=== PATIENT | female | born 1935 | race Caucasian/White ===

== ENCOUNTER 2019-10-03 06:00 | Outpatient (CLI) | payer MEDICARE, OTHER, SELFPAY ==
--- NOTE | 2019-10-06 06:42 | ONC FU_ITS ---
Dr. Armendariz Patient Follow-Up Note Patient: Juana January Unit #: [id number]: 1935 Dicatated By: Angel Armendariz M.D.Date of Visit:Oct 03, 2019 Onc Med Follow-up/Prog Note Chief Complaint: Breast cancer. 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 She had presented in August 2012 with an abnormal screening mammogram which showed a 6 mm spiculated density in the 4 o'clock position of the left breast. Needle core biopsy in October 2012 showed grade 1 invasive ductal carcinoma associated with intermediate and high grade ductal carcinoma in situ. The size of the invasive component was estimated at 4 mm. The tumor was ER positive at 100% and CO positive at 10%. It was negative for overexpression of HER-2/kimberly (1+ by IHC). She underwent left mastectomy with sentinel axillary lymph node biopsy on 11/15/2012. Pathology showed focal residual hg grade ductal carcinoma in situ at the previous biopsy site. There was no residual invasive cancer, and there was no involvement in 6 lymph nodes. She has been taking adjuvant hormonal therapy with anastrozole. I had seen her initially on . Her main complaint at that time was that she had developed a muscle spasm in her back on the preceding 16 of February, and it had continued to bother her intermittently ever since then. The area of involvement was in the left upper back. She had no associated neurologic symptoms. She had undergone physical therapy and she also had seen a chiropractor. Clinically it appeared unlikely that the pain was related to metastatic disease. Initially I had just recommended additional evaluation and treatment by physical therapy, and I did have her continue the anastrozole. She has additional history of osteoporosis with a bone density study in February 2014 showing a T score of -2.8 in the lumbar spine. She had previously been on treatment with Boniva monthly along with a calcium/vitamin D supplement. Her treatment subsequently was transitioned to Prolia. Her other medical illnesses have been limited to hypertension and hypothyroidism. She had a previous right total knee arthroplasty, but that was related to an injury/fracture. She is a nonsmoker. She does have a significant family history of breast cancer including her mother and a maternal aunt. INTERIM HISTORY: As of her follow-up visit in March 2018 she had completed 5 years of adjuvant hormonal therapy. At that point I reviewed options for further management, and she opted to stop treatment. Her repeat bone density study on 09/28/2018 showed T score -1.9 in the lumbar spine, -2.0 and the left femoral neck, and -1.5 been the left total hip. She is seen for a scheduled visit. She has been feeling good generally. Her main complaint is that recently her blood pressure has been running high when she checks it late in the afternoon. She also complains that the right side of her face gets flushed. Her energy generally is good, and she has normal activity. ECOG score is 0. Her appetite is good and her weight is stable. She has no fever, night sweats, or hot flashes. She has no shortness of breath, cough, or chest pain. She has no GI or complaints. She has only a little soreness in her back when she overdoes it. She has no other joint or bone pain. She has neuropathy symptoms in her right foot, but those are managed adequately with gabapentin. Medications: Ambien 1 (5 mg) Tablet Oral at bedtime PRN, Arthritis Pain Relief 1 (650 mg) Tablet, controlled release Oral b.i.d., Atenolol 1 (50 mg) Tablet Oral b.i.d., Cholecalciferol 1 Tablet (of 1000 Units) Oral daily, Flonase 1 (50 mcg/act) Suspension Nasal PRN, Gabapentin 1 Tablet Oral t.i.d., Hydrocodone-Acetaminophen 1 (7.5-325 mg) Tablet Oral PRN, Levothyroxine Sodium 1 (50 mcg) Tablet Oral daily, Lisinopril 1 (40 mg) Tablet Oral daily, Multivitamins 1 Capsule Oral daily, Norvasc 1 (5 mg) Tablet Oral daily Allergies: Cipro Review of Systems: Constitutional - She has good energy. She has normal activity. Appetite is good and weight is stable. She has not had fever, hot flashes, or night sweats. Recently she has been having episodes of high blood pressure and flushing on the right side of her face in the late afternoons. ECOG score is 0, ENMT - She has occasional sinus drainage. No mouth sores. No sore throat or difficulty swallowing, Hematologic/Lymphatic - No abnormal bruising or bleeding, Respiratory - No shortness of breath. No cough. No pleuritic pain or hemoptysis, Cardiovascular - No angina pain. No palpitations, Gastrointestinal - No nausea or vomiting. No heartburn or acid reflux. No diarrhea or constipation. No blood in the stool or black stools, Genitourinary (F) - No dysuria or hematuria. No urinary frequency. No urgency or incontinence, Musculoskeletal - She has a little soreness in her back if she overdoes it. She otherwise is not having any joint or bone pain, Integumentary - No skin complications, Neurologic - No headache. She occasionally has lightheadedness when she first gets up in the morning. She has neuropathy symptoms in the right foot, but it is adequately managed with gabapentin, Psychiatric - No anxiety or depression. No insomnia. Vital Signs: Performed on Oct 03, 2019 14:18 Height - 64.50 in Weight - 127 lbs (HIGH) BSA - 1.62 sq.m BMI - 21.46 Temperature - 97.3 F (LOW) Pulse - 56 /min (LOW) Respiration - 17 /min BP - 118/82 mm(hg) O2 Sat - 94 % (LOW) Pain - 0 Physical Examination: Constitutional - She looks good generally, Eyes - Sclerae nonicteric. Conjunctivae clear, ENMT - No lesions noted in the oral cavity, Hematologic/Lymphatic - No cervical or clavicular adenopathy, Respiratory - Lungs are clear with good air movement bilaterally, Cardiovascular - Heart is regular with no murmur, gallop or rub noted, Breasts - The right breast shows no mass. There are no lesions noted in the left chest wall. There is no axillary adenopathy noted, Abdomen - Soft. Liver and spleen are not enlarged. There is no abdominal mass or ascites noted and there is no inguinal adenopathy, Extremities - No edema, Neurologic - No focal neurologic deficits noted. Lab/Imaging: Test performed on Sep 28, 2019 08:38 Glucose 90 mg/dL BUN 19 mg/dL Creatinine 1.02 mg/dL Cr Clearance (Est) 37.71 mL/min Sodium 138 mmol/L Potassium 4.2 mmol/L Chloride 99 mmol/L CO2 28 mmol/L Calcium 10.0 mg/dL Protein, Total 7.2 g/dL Albumin 0.7 g/dL Bilirubin, Total 0.7 mg/dL Alkaline Phosphatase 101 IU/L AST (SGOT) 21 IU/L ALT (SGPT) 15 IU/L WBC 4.7 10^9/L RBC 4.76 10^12/L HGB 14.3 g/dL HCT 45.0 % MCV 94.5 fl MCH 30.0 pg MCHC 31.8 g/dL RDW 14.2 % Platelet Count 167 10^9/L MPV 11.9 fL Neutrophils (Gran) 3.26 10^9/L Lymphocytes 0.90 10^9/L Monocytes 0.42 10^9/L Eosinophils 0.05 10^9/L Basophils 0.05 10^9/L Manual Lymphocytes 19 % Manual Monocytes 9 % Manual Eosinophils 1 % Manual Basophils 1 % Impression: 1. 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 2. She underwent left mastectomy with sentinel axillary lymph node biopsy in November 2012. 3. She was given adjuvant hormonal therapy with anastrozole. 4. During followup she had developed significant pain in the left upper back. This was initially presumed to be due to muscle spasm. It improved significantly with treatment [facility] [place]. She also had physical therapy. Her other medical illnesses include: 5. Osteoporosis. 6. Hypertension. 7. Hypothyroidism. As of March 2018 she had completed 5 years of adjuvant hormonal therapy with anastrozole, and at that point she opted to stop her treatment. She is now being followed on observation/expectant management. She appears stable clinically with no evidence of recurrence of the breast cancer. Her bone density study in September 2018 showed improvement compared to the previous study in 2013. Plan: She remains on observation/expectant management for the breast cancer. She will continue her calcium/vitamin D supplements. She will continue to monitor her blood pressure. I will see her again in one year. Signed By: Angel Armendariz M.D. <<Signature on File>>
== END 2019-10-03 06:01 | disposition home or self-care (01) ==
LOC: ONCMED 14:19
PROVIDERS: Family Provider Family Medicine; PCP Family Medicine; Visit Provider Internal Medicine Medical Oncology
DX: Z08 Encounter for follow-up examination after completed treatment for malignant neoplasm (principal); Z85.3 Personal history of malignant neoplasm of breast; M81.0 Age-related osteoporosis without current pathological fracture; I10 Essential (primary) hypertension; E03.9 Hypothyroidism, unspecified; Z79.899 Other long term (current) drug therapy; Z79.891 Long term (current) use of opiate analgesic; Z96.651 Presence of right artificial knee joint; Z92.23 Personal history of estrogen therapy; Z90.12 Acquired absence of left breast and nipple; Z80.3 Family history of malignant neoplasm of breast
CPT/HCPCS: G0463

== ENCOUNTER → 2020-03-04 15:23 | Outpatient (BNVA) | payer MEDICARE, OTHER, SELFPAY | PROVIDERS: Family Provider Family Medicine; PCP Family Medicine; Referring Provider Family Medicine; Visit Provider Orthopaedic Surgery | DX: M25.561 Pain in right knee (principal); Z96.651 Presence of right artificial knee joint; M48.00 Spinal stenosis, site unspecified | CPT/HCPCS: 73560; 73565 ==

== ENCOUNTER 2020-11-26 15:05 | Outpatient (CLI) | payer MEDICARE, OTHER, SELFPAY ==
--- NOTE | 2020-11-26 18:31 | ONC FU_ITS ---
Dr. Armendariz Patient Follow-Up Note Patient: Juana January Unit #: [id number]: 1935 Dicatated By: Angel Armendariz M.D.Date of Visit:Nov 26, 2020 Onc Med Follow-up/Prog Note Chief Complaint: Breast cancer. 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 She had presented in August 2012 with an abnormal screening mammogram which showed a 6 mm spiculated density in the 4 o'clock position of the left breast. Needle core biopsy in October 2012 showed grade 1 invasive ductal carcinoma associated with intermediate and high grade ductal carcinoma in situ. The size of the invasive component was estimated at 4 mm. The tumor was ER positive at 100% and AR positive at 10%. It was negative for overexpression of HER-2/kimberly (1+ by IHC). She underwent left mastectomy with sentinel axillary lymph node biopsy on 11/15/2012. Pathology showed focal residual hg grade ductal carcinoma in situ at the previous biopsy site. There was no residual invasive cancer, and there was no involvement in 6 lymph nodes. She has been taking adjuvant hormonal therapy with anastrozole. I had seen her initially on . Her main complaint at that time was that she had developed a muscle spasm in her back on the preceding 16 of February, and it had continued to bother her intermittently ever since then. The area of involvement was in the left upper back. She had no associated neurologic symptoms. She had undergone physical therapy and she also had seen a chiropractor. Clinically it appeared unlikely that the pain was related to metastatic disease. Initially I had just recommended additional evaluation and treatment by physical therapy, and I did have her continue the anastrozole. As of her follow-up visit in March 2018 she had completed 5 years of adjuvant hormonal therapy. At that point I reviewed options for further management, and she opted to stop treatment. She has additional history of osteoporosis with a bone density study in February 2014 showing a T score of -2.8 in the lumbar spine. She had previously been on treatment with Boniva monthly along with a calcium/vitamin D supplement. Her treatment subsequently was transitioned to Prolia. Her repeat bone density study on 09/28/2018 showed T score -1.9 in the lumbar spine, -2.0 and the left femoral neck, and -1.5 been the left total hip. Her other medical illnesses have been limited to hypertension and hypothyroidism. She had a previous right total knee arthroplasty, but that was related to an injury/fracture. She is a nonsmoker. She does have a significant family history of breast cancer including her mother and a maternal aunt. INTERIM HISTORY: She is seen for a scheduled visit. She indicates that she had COVID-19 virus infection in the early part of June. She was not very symptomatic, and she recovered uneventfully. Her only significant complaint is that she has recently had a flareup of thoracic muscle pain in her back. She has been managing it with rest, heat, and topical therapy. She has otherwise had good energy and activity tolerance. ECOG score is 0. She has good appetite. She has no fever, night sweats, or hot flashes. She has no shortness of breath, cough, or chest pain. She has no GI or complaints. She has had no other joint or bone pain. She does not complain of headache or dizziness, and she has no focal neurologic symptoms. Medications: Ambien 1 (5 mg) Tablet Oral at bedtime PRN, Arthritis Pain Relief 1 (650 mg) Tablet, controlled release Oral b.i.d., Atenolol 1 (50 mg) Tablet Oral b.i.d., Cholecalciferol 1 Tablet (of 1000 Units) Oral daily, Flonase 1 (50 mcg/act) Suspension Nasal PRN, Gabapentin (300 mg) Tablet Oral Take as Directed, Hydrocodone-Acetaminophen 1 (7.5-325 mg) Tablet Oral PRN, Levothyroxine Sodium 1 (50 mcg) Tablet Oral daily, Lisinopril 1 (40 mg) Tablet Oral b.i.d., Multivitamins 1 Capsule Oral daily, Norvasc 1 (5 mg) Tablet Oral daily Allergies: Cipro Vital Signs: Performed on Nov 26, 2020 15:04 Height - 64.50 in Weight - 125 lbs (LOW) BSA - 1.61 sq.m BMI - 21.12 Temperature - 97.4 F (LOW) Pulse - 89 /min Respiration - 16 /min BP - 140/76 mm(hg) O2 Sat - 98 % Pain - 4 Physical Examination: Constitutional - She looks good generally, Eyes - Sclerae nonicteric. Conjunctivae clear, ENMT - No lesions noted in the oral cavity, Hematologic/Lymphatic - No cervical or clavicular adenopathy, Respiratory - Lungs are clear with good air movement bilaterally, Cardiovascular - Heart is regular with no murmur, gallop or rub noted, Breasts - There are no lesions noted in the left chest wall. The right breast shows no mass. There is no axillary adenopathy noted, Abdomen - Soft. Liver and spleen are not enlarged. There is no abdominal mass or ascites noted and there is no inguinal adenopathy, Back/Spine - There is mild tenderness in the upper back on the left side, at the lower scapular level. There is no bony tenderness in the spine, Extremities - No edema, Neurologic - No focal neurologic deficits noted. Lab/Imaging: Test performed on Oct 11, 2020 11:40 Glucose 93 mg/dL BUN 15 mg/dL Creatinine 0.90 mg/dL Cr Clearance (Est) 42.32 mL/min Sodium 133 mmol/L Potassium 4.2 mmol/L Chloride 97 mmol/L CO2 24 mmol/L Calcium 9.7 mg/dL Protein, Total 7.4 g/dL Albumin 4.1 g/dL Bilirubin, Total 0.7 mg/dL Alkaline Phosphatase 123 IU/L AST (SGOT) 24 IU/L ALT (SGPT) 15 IU/L WBC 5.1 10^9/L RBC 4.61 10^12/L HGB 14.0 g/dL HCT 43.9 % MCV 95.2 fl MCH 30.4 pg MCHC 31.9 g/dL RDW 12.8 % Platelet Count 216 10^9/L MPV 11.4 fL Neutrophils (Gran) 3.20 10^9/L Lymphocytes 1.14 10^9/L Monocytes 0.52 10^9/L Eosinophils 0.11 10^9/L Basophils 0.06 10^9/L Manual Lymphocytes 23 % Manual Monocytes 10 % Manual Eosinophils 2 % Manual Basophils 1 % Problem List: 1. Grade 1 invasive ductal carcinoma of the left breast, stage IA, ER/AR positive and HER-2/kimberly negative. She underwent left mastectomy with sentinel axillary lymph node biopsy in November 2012. 2. During followup she had developed significant pain in the left upper back. This was initially presumed to be due to muscle spasm. It improved significantly with treatment through [facility] [place]. She also had physical therapy. 3. Osteoporosis. 4. Hypertension. 5. Hypothyroidism. Problems Addressed with this Encounter and Plan: 1. 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 She underwent left mastectomy with sentinel axillary lymph node biopsy in November 2012. She was given adjuvant hormonal therapy with anastrozole. As of March 2018 she had completed 5 years of adjuvant hormonal therapy with anastrozole, and at that point she opted to stop her treatment. During follow-up she has been doing well clinically. She has had occasional episodes of pain in the upper back area, which appear to be muscular in origin. Thus far there has been no evidence of recurrence of the breast cancer. She remains on observation/expectant management for the breast cancer. I will see her again in one year. She will be scheduled for a follow-up visit in 1 year. In the meantime, I will schedule her for her surveillance diagnostic mammogram of the right breast, which is overdue, she has been unable to travel back to [place] where her previous studies have been done. 2. She has osteoporosis. She did show some improvement in her T-score while on treatment with Prolia. Since she is now off the aromatase inhibitor, she will just continue with her vitamin D supplementation. Signed By: Angel Armendariz M.D. <<Signature on File>>
== END 2020-11-26 15:06 | disposition home or self-care (01) ==
LOC: ONCMED 15:06
PROVIDERS: Family Provider Family Medicine; PCP Family Medicine; Visit Provider Internal Medicine Medical Oncology
DX: C50.812 Malignant neoplasm of overlapping sites of left female breast (principal); Z17.0 Estrogen receptor positive status [ER+]; Z90.12 Acquired absence of left breast and nipple; C79.51 Secondary malignant neoplasm of bone; M81.0 Age-related osteoporosis without current pathological fracture; I10 Essential (primary) hypertension; E03.9 Hypothyroidism, unspecified; Z79.811 Long term (current) use of aromatase inhibitors; Z79.899 Other long term (current) drug therapy
CPT/HCPCS: 99214

== ENCOUNTER 2020-12-13 11:29 | Outpatient (CLI) | payer MEDICARE, OTHER, SELFPAY ==
--- NOTE | 2020-12-13 11:33 | MM_ITS ---
WS: [id number] DIAGNOSTIC RIGHT DIGITAL MAMMOGRAM WITH CAD HISTORY: HX OF BREAST CA;LT MASTECTOMY COMPARISON: None available. Technique: CC, MLO and ML views. Breast composition: The breasts are heterogeneously dense, which may obscure small masses. Asymmetri es are stable throughout the breast. No calcifications. MM/[place] [id number] IMPRESSION: BI-RADS: 2-Benign FOLLOW UP: 1 Year Follow-up
== END 2020-12-13 11:30 | disposition home or self-care (01) ==
LOC: RADSHAW 11:31
PROVIDERS: PCP Family Medicine; Visit Provider Internal Medicine Medical Oncology
DX: Z85.3 Personal history of malignant neoplasm of breast (principal); Z90.12 Acquired absence of left breast and nipple
CPT/HCPCS: 77065

== ENCOUNTER → 2022-01-05 11:28 | Outpatient (BNVA) | payer MEDICARE, OTHER, SELFPAY | PROVIDERS: PCP Family Medicine; Visit Provider Internal Medicine Medical Oncology | DX: M81.0 Age-related osteoporosis without current pathological fracture (principal); C50.512 Malignant neoplasm of lower-outer quadrant of left female breast; E03.9 Hypothyroidism, unspecified | CPT/HCPCS: 80053; 82306; 84443; 85025 ==

== ENCOUNTER 2022-03-02 12:42 | Oncology outpatient (recurring) (ONCR) | payer MEDICARE, OTHER, SELFPAY | END 2022-03-02 23:59 | disposition home or self-care (01) | PROVIDERS: PCP Family Medicine; Visit Provider Internal Medicine Medical Oncology | DX: Z08 Encounter for follow-up examination after completed treatment for malignant neoplasm (principal); Z85.3 Personal history of malignant neoplasm of breast | CPT/HCPCS: G0463 ==

== ENCOUNTER 2022-04-17 13:44 | Outpatient (CLI) | payer MEDICARE, OTHER, SELFPAY ==
--- NOTE | 2022-04-17 13:50 | MM_ITS ---
WS: [id number] DIAGNOSTIC RIGHT DIGITAL TOMOSYNTHESIS MAMMOGRAPHY WITH CAD. HISTORY: HX OF BREAST CA COMPARISON: 12/13/2020, 09/11/2019 and 06/27/2018 Technique: CC, MLO and ML views. Breast composition: The breasts are heterogeneously dense, which may obscure small masses. Fibroglan dular pattern is very similar to prior studies. No interval change. No suspicious mass or calcificati on. MM/[place] [id number] IMPRESSION: BI-RADS: 2-Benign FOLLOW UP: 1 Year Follow-up
== END 2022-04-17 13:45 | disposition home or self-care (01) ==
LOC: RAD 13:46
PROVIDERS: PCP Family Medicine; Visit Provider Internal Medicine Medical Oncology
DX: Z85.3 Personal history of malignant neoplasm of breast (principal)
CPT/HCPCS: 77061

== ENCOUNTER → 2024-09-19 15:09 | Outpatient (BNVA) | payer MEDICARE, OTHER, SELFPAY | PROVIDERS: PCP Family Medicine; Visit Provider Dermatology | DX: L64.8 Other androgenic alopecia (principal); I78.8 Other diseases of capillaries; L21.8 Other seborrheic dermatitis; Z08 Encounter for follow-up examination after completed treatment for malignant neoplasm; Z85.828 Personal history of other malignant neoplasm of skin; D48.5 Neoplasm of uncertain behavior of skin; C44.319 Basal cell carcinoma of skin of other parts of face; L57.0 Actinic keratosis | CPT/HCPCS: 11102; 17000; 69105; 99204 ==

== ENCOUNTER → 2024-10-16 08:56 | Outpatient (BNVA) | payer MEDICARE, OTHER, SELFPAY | PROVIDERS: PCP Family Medicine; Visit Provider Dermatology | DX: C44.319 Basal cell carcinoma of skin of other parts of face (principal); H61.032 Chondritis of left external ear | CPT/HCPCS: 99213 ==

== ENCOUNTER → 2025-01-23 11:29 | Outpatient (BNVA) | payer MEDICARE, OTHER, SELFPAY | PROVIDERS: PCP Family Medicine; Visit Provider Dermatology | DX: B35.3 Tinea pedis (principal); B35.1 Tinea unguium; H61.032 Chondritis of left external ear; I78.8 Other diseases of capillaries; Z08 Encounter for follow-up examination after completed treatment for malignant neoplasm; Z85.828 Personal history of other malignant neoplasm of skin; L57.0 Actinic keratosis | CPT/HCPCS: 17000; 99214 ==

== ENCOUNTER 2025-03-13 16:00 | Inpatient (IN) | payer MEDICARE, OTHER, SELFPAY ==
[2025-03-13] VITALS (28 sets, daily range): BP systolic 114–142; BP diastolic 73–103; PULSE 94–122; RESP 13–43; TEMP 36.6; O2SAT 91–100
--- OUTSIDE RECORDS SUMMARY | 2025-03-13 09:00 | XMS_ITS | Encounter Summary ---
Author Organization [facility] Address [address] [place] [address] Care Team Providers Care Swimmer Name Role Phone Diane Funk MD Primary Care Provider [phone] Reason for Visit * Reason Comments Cough Shortness of breath - wheezing - lack of appetite - nausea - started on Wednesday with laryngitis Encounter Details Date Type Department Care Team (Late st Contact Info) Description 03/13/2025 9:00 AM CDT Office Visit 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 Gender Identity Not on file Sexual Orientation Not on file documented as of this encounter Last Filed Vital Signs Vital Sign Reading Time Taken Comments Blood Pressure 128/80 03/13/2025 8:59 AM CDT Pulse 117 03/13/2025 8:59 AM CDT Temperature 37 C (98.6 F) 03/13/2025 8:59 AM CDT Respiratory Rate 28 03/13/2025 8:59 AM CDT Oxygen Saturation 97% 03/13/2025 9:18 AM CDT on 2 liters Inhaled Oxygen Concentration - - Weight 57 kg (125 lb 9.6 oz) 03/13/2025 8:59 AM CDT Height 160 cm (5' 3 ) 03/13/2025 8:59 AM CDT Body Mass Index 22.25 03/13/2025 8:59 AM CDT documented in this encounter Progress Notes * Narcisa Avalos, ACETYLENE CUTTER - 03/13/2025 10:03 AM CDT [facility] 03/13/2025 Subjective: Dana Arias is a 89 y.o. female who comes today for evaluation of Cough (Shortness of breath - wheezing - lack of appetite - nausea - started on Wednesday with laryngitis ) . History of Present Illness The patient is an 89-year-old female presenting with upper respiratory symptoms. She recently returned from a 14-day trip to [place], during which she developed a cough and began experiencing difficulty breathing. Her cough started on Wednesday, initially presenting as pharyngitis that rendered her unable to speak.The cough has progressively worsened since then. She reports no fevers. She experienced significantbreathing difficulties yesterday afternoon. Her oxygen saturation was 70s% on room air but increased to 96% with 2 L of oxygen. She reports no history of abnormal heart rhythms and does not feel her heart is beating unusually fast. Review of Systems Constitutional: Negative for chills, fever and malaise/fatigue. HENT: Negative for congestion, ear pain and sore throat. Eyes: Negative for blurred vision. Respiratory: Positive for cough and shortness of breath. Cardiovascular: Negative for chest pain and palpitations. Gastrointestinal: Negative for abdominal pain, constipation, diarrhea, nausea and vomiting. Genitourinary: Negative for dysuria and urgency. Musculoskeletal: Negative for joint pain and myalgias. Neurological: Negative for dizziness and headaches. All other systems reviewed and are negative. Objective: Vitals: 03/13/25 0859 03/13/25 0918 Temp: 98.6 ??F (37 ??C) Pulse: (!) 117 BP: 128/80 Resp: 28 SpO2: (!) 84% 97% Physical Exam Constitutional: General: She is not in acute distress. Appearance: Normal appearance. She is not ill-appearing or toxic-appearing. HENT: Head: Normocephalic and atraumatic. Right Ear: Tympanic membrane normal. Left Ear: Tympanic membrane normal. Nose: Nose normal. Mouth/Throat: Mouth: Mucous membranes are moist. Eyes: Extraocular Movements: Extraocular movements intact. Pupils: Pupils are equal, round, and reactive to light. Neck: Vascular: No JVD. Cardiovascular: Rate and Rhythm: Tachycardia present. Rhythm irregularly irregular. Pulses: Normal pulses. Heart sounds: Normal heart sounds. Pulmonary: Effort: Pulmonary effort is normal. No respiratory distress. Breath sounds: Normal air entry. No decreased air movement. Examination of the right-middle field reveals rales. Examination of the left-middle field reveals rales. Examination of the right-lower field reveals rales. Examination of the left-lower field reveals rales. Wheezing and rales present. No rhonchi. Abdominal: General: Abdomen is flat. Bowel sounds are normal. Palpations: Abdomen is soft. Tenderness: There is no abdominal tenderness. Musculoskeletal: General: Normal range of motion. Cervical back: Normal range of motion and neck supple. Skin: General: Skin is warm and dry. Neurological: General: No focal deficit present. Mental Status: She is alert and oriented to person, place, and time. Psychiatric: Mood and Affect: Mood normal. Behavior: Behavior normal. Past medical history, surgical history and social history reviewed. Past Medical History: Diagnosis Date HTN (hypertension) Hypothyroidism 1974 Malignant neoplasm of breast (female), unspecified site left [id number] Procedures Assessment/Plan: ICD-10-CM ICD-9-CM 1. Acute cough R05.1 786.2 POC INFLUENZA A/B AND COVID-19 ANTIGENS 2. Tachycardia R00.0 785.0 EKG 12-LEAD 3. Atrial fibrillation with RVR (CMS/HCC) I48.91 427.31 4. Hypoxia R09.02 799.02 5. COVID-19 U07.1 079.89 Assessment & Plan 1. Atrial Fibrillation with Rapid Ventricular Response. - Noted to be in atrial fibrillation with a rapid ventricular response (150) which is a new diagnosis. - Further evaluation in the emergency department; transported on 2 L of oxygen. 2. COVID-19 Positive. - Tested positive for COVID-19. - Cough started on 03/09/2025, progressively worsening. - O2 reading in high 70s on room air - Up to >92 on 2L NC - Unclear the accuracy of these readings based on new Afib with RVR 3. Hypoxia - O2 reading in high 70s on room air - Up to >92 on 2L NC - Unclear the accuracy of these readings based on new Afib with RVR Given advanced age, frailty, new Afib with RVR in 150s, Covid + status and possible hypoxia, she will be further managed in the ER. The nurse and I wheeled her over with her daughter alongside. CLARA Lobo- This note was automatically generated by a Generative AI technology (Rollstream), reviewed, edited, and finalized by CLARA Lobo. The author of this note, patient (or authorized teleservices representative), and all other persons present consent to the audio recording of this visit for charting documentation purposes. documented in this encounter Plan of Treatment Upcoming Encounters Date Type Department Care Team (Late st Contact Info) Description 03/22/2025 12:40 PM CDT Office Visit [facility] [address] [place] [address] Brandee Blackwell FNP [address] [place] [address] 05/31/2025 2:20 PM CDT Office Visit [facility] [place] [address] [address] Diane Funk MD [address] [address] Scheduled Orders Name Type Priority Associated Diagnoses Orde r Schedule POC INFLUENZA A/B AND COVID-19 ANTIGENS Point of Care Testing Routine Acute cough Ordered: 03/13/2025 documented as of this encounter Procedures Procedure Name Priority Date/Time Associated Diagnosis Comments EKG 12-LEAD Routine 03/13/2025 Tachycardia documented in this encounter Results * EKG 12-LEAD (03/13/2025) Narcisa Avalos AC[employer]E CUTTER ECG ORDERABLES Final Resul t [facility] CLIA# [id number] [address] [place] [address] documented in this encounter Visit Diagnoses Diagnosis Acute cough- Primary Tachycardia Tachycardia, unspecified Atrial fibrillation with RVR (CMS/HCC) Atrial fibrillation Hypoxia Hypoxemia COVID-19 documented in this encounter Care Teams Swimmer Relationship Specialty Start Date End Date Diane Funk MD [address] [place] [id number] PCP - General Family Practice 03/04/18 documented as of this encounter
--- OUTSIDE RECORDS SUMMARY | 2025-03-13 09:59 | XMS_ITS | Encounter Summary ---
Author Organization [facility] Address [address] [place] [address] Care Team Providers Care Conductor Orchestra Name Role Phone Diane Funk MD Primary Care Provider Reason for Visit * Reason Comments Irregular Heart Beat Hr 150 low o2 80s Encounter Details Date Type Department Care Team (Late st Contact Info) Description 03/13/2025 9:59 AM CDT - 03/13/2025 3:14 PM CDT Emergency [facility] Emergency Medicine [address] [address] Johann Granado MD [address] [address] New onset atrial fibrillation (CMS/HCC) (Primary Dx); COVID-19 virus detected; Multifocal pneumonia Discharge Disposition: Acute Care Hospital Social History Tobacco Use Types Packs/Day Years Used Date Smoking Tobacco: Never Smokeless Tobacco: Never Alcohol Use Standard Drinks/Week Comments Not Currently 0 (1 standard drink = 0.6 oz pur e alcohol) Comments No Sex and Gender Information Value Date Recorded Sex Assigned at Not on file 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 Gender Identity Not on file Sexual Orientation Not on file documented as of this encounter Last Filed Vital Signs Vital Sign Reading Time Taken Comments Blood Pressure 141/113 03/13/2025 2:30 PM CDT Pulse 110 03/13/2025 2:30 PM CDT Temperature 37.1 C (98.7 F) 03/13/2025 9:58 AM CDT Respiratory Rate 20 03/13/2025 2:30 PM CDT Oxygen Saturation 98% 03/13/2025 2:30 PM CDT Inhaled Oxygen Concentration - - Weight 56.9 kg (125 lb 6.4 oz) 03/13/2025 9:58 A M CDT Height 160 cm (5' 3 ) 03/13/2025 9:58 AM CDT Body Mass Index 22.21 03/13/2025 9:58 AM CDT documented in this encounter Medications at Time of Discharge gabapentin (NEURONTIN) 300 mg capsuleIndication s:Spinal stenosis of lumbar region without neurogenic claudication TAKE ONE CAPSULE BY MOUTH EVERY MORNING, 1 AT NOON, AND 2 EVERY NIGHT AT BEDTIME 400 Capsule 1 03/09/2025 levothyroxine 75 mcg tablet TAKE 1 TABLET(75 MCG) BY MOUTH DAILY IN THE MORNING 100 Tablet 2 02/15/2025 atenoloL (TENORMIN) 50 mg tablet Take 1 tablet by mouth twice daily 80 Tablet 02/01/2025 alendronate (FOSAMAX) 70 mg tablet TAKE ONE TABLET BY MOUTH EVERY 7 DAYS. EMPTY STOMACH BEFORE OTHER MEDS,WITH 8 OUNCES OF WATER, STAY UPRIGHT 30 MINUTES 12 Tablet 01/09/2025 amLODIPine (NORVASC) 5 mg tabletIndications :Benign hypertension Take 1 Tablet (5 mg) by mouth daily. 100 Tablet 3 11/28/2024 methylPREDNISolon e (MEDROL DOSPACK) 4 mg Tablets, Dose PackIndications:S neela stenosis, unspecified spinal region,Acute left-sided thoracic back pain Take as instructions advise. 21 Tablet 11/02/2024 lisinopriL (PRINIVIL) 20 mg tabletIndications :Benign hypertension Take 1 Tablet (20 mg) by mouth 2 times daily. 200 Tablet 2 10/17/2024 acetaminophen (TYLENOL) 500 mg tablet Take 2 Tablets (1,000 mg) by mouth every 8 hours as needed for Pain. 03/02/2023 multivitamin (DAILY-JONNY) tablet Take 1 Tablet by mouth daily. documented as of this encounter Progress Notes * Barry Mead RCP - 03/13/2025 10:11 AM CDT EKG completed. Results given to Dr. GRANADO and scanned into Epic. documented in this encounter ED Notes * Miranda Mansfield RN - 03/13/2025 2:33 PM CDT [facility] notified of needing an ambulance transfer set up. * Miranda Mansfield RN - 03/13/2025 1:53 PM CDT [facility] Body Joiner calling back and speaking to DR Granado. Advises that they will work on getting bed placement for patient. * Miranda Mansfield RN - 03/13/2025 12:44 PM CDT RT at bedside * Miranda Mansfield RN - 03/13/2025 12:[address] Granado calling and speaking to the Body Joiner at [facility]. No beds available at this time. * Tomasz Winters RN - 03/13/2025 10:12 AM CDT Pt reports to the ed with co rapid hr and SOB that has been ongoing since yesterday. Pt reports that she was recently in [place] on a trip and developed laryngitis. Pt reports that yesterday she beganto feel weak and SOB. Pt was being seen at the clinic today and was told she was in AFIB. Pt arrived on 2L NC and does not have home O2. Pt was in the low 80s in the clinic and the same off O2 the ed.. Pt has a bruise under her eye and denies any injury. Pt is a/o X4 with even and unlabored breahing and denies any CP or ABD pain. * Lindsay, Johann Lama MD - 03/13/2025 9:59 AM CDTAssociated Order(s): EKG 12 lead HISTORY OF PRESENT ILLNESS History of Present Illness This is a female with a history of hypertension presenting with shortness of breath. The patient reports experiencing shortness of breath, which she attributes to laryngitis that beganon 03/09/2025. Her symptoms have progressively worsened, with increased difficulty in breathing noted on 03/12/2025 and throughout the night. She has no known history of atrial fibrillation or other heart conditions. She recently returned from a trip to [place] on 03/09/2025, during which several individuals fell ill. She was informed of a positive COVID-19 test result upon her return. She is not experiencing any chest pain, swelling, or discomfort in her calves. She also mentions an incident where she woke up at 3:00 AM with a black eye, even though she had not fallen. She is not currently onany blood thinners. She has not yet taken her blood pressure medication today. PAST MEDICAL HISTORY REVIEWED MEDICAL: Patient has a past medical history of HTN (hypertension), Hypothyroidism (1973), and Malignant neoplasm of breast (female), unspecified site. SURGICAL: Patient has a past surgical history that includes mastectomy (2012); tonsillectomy (194); knee replacement (2012); pr tx inter/pr/subtrchntric fem fx imed impltscrew (Right, 02/20/2023); and hip replacement (01/22/24). ALLERGIES Ciprofloxacin and Tramadol PHYSICAL EXAM INITIAL VS BP: (!) 150/106 (03/13/25957), Heart Rate: (!) 146 bpm (03/13/25957), Resp: 18 (03/13/25957),Pulse: 76 (03/13/25 1130), Temp: 98.7 ??F (37.1 ??C) (03/13/25957), Temp src: Tympanic (03/13/25957), SpO2: 99 % (03/13/25957), Height: 5' 3 (160 cm) (03/13/25957), Weight: 56.9 kg (125 lb 6.4 oz) (03/13/25957), BMI (Calculated): 22.23 (03/13/25957) No LMP recorded. Patient is postmenopausal. Blood pressure (!) 92/73, pulse 76, temperature 98.7 ??F (37.1 ??C), temperature source Tympanic, resp. rate 20, height 5' 3 (1.6 m), weight 56.9 kg (125 lb 6.4 oz), SpO2 94%, not currently . Physical Exam Vitals and nursing note reviewed. Constitutional: General: She is not in acute distress. Appearance: She is normal weight. She is not ill-appearing. HENT: Head: Normocephalic and atraumatic. Nose: Congestion and rhinorrhea present. Mouth/Throat: Mouth: Mucous membranes are moist. Eyes: General: Scleral icterus present. Extraocular Movements: Extraocular movements intact. Conjunctiva/sclera: Conjunctivae normal. Pupils: Pupils are equal, round, and reactive to light. Comments: Left periorbital ecchymosis without any significant swelling or deformity. Pupils are equal. Possibly scleral icterus Cardiovascular: Rate and Rhythm: Tachycardia present. Rhythm irregular. Pulses: Normal pulses. Pulmonary: Effort: Pulmonary effort is normal. No respiratory distress. Abdominal: Palpations: Abdomen is soft. Tenderness: There is no abdominal tenderness. Skin: General: Skin is warm and dry. Capillary Refill: Capillary refill takes less than 2 seconds. Neurological: General: No focal deficit present. Mental Status: She is alert and oriented to person, place, and time. Mental status is at baseline. Cranial Nerves: No cranial nerve deficit. Psychiatric: Mood and Affect: Mood normal. Behavior: Behavior normal. Physical Exam Cardiovascular: Irregular heart rhythm, elevated heart rate. Respiratory: Oxygen saturation in the 80s without oxygen supplementation. DIAGNOSTICS LAB: TROPONIN BASELINE, 5TH GEN - Abnormal Result Value TROPONIN T, BASELINE 5TH GEN 103 (*) CBC WITH DIFFERENTIAL - Abnormal WBC 14.3 (*) RBC 4.18 HEMOGLOBIN 13.0 HEMATOCRIT 38.7 MCV 92.6 MCH 31.1 MCHC 33.6 RDW 13.2 RDW-STDEV 44.8 PLATELETS 218 MPV 11.1 NEUTROPHILS 88 (*) LYMPHOCYTES 5 (*) MONOCYTES 6 EOSINOPHILS 0 (*) BASOPHILS 0 IMMATURE GRANULOCYTES 1 NEUTROPHIL ABSOLUTE 12.64 (*) LYMPHOCYTE ABSOLUTE 0.65 (*) MONOCYTE ABSOLUTE 0.92 (*) EOSINOPHIL ABSOLUTE 0.01 (*) BASOPHILS ABSOLUTE 0.03 IMMATURE GRANULOCYTES ABSOLUTE 0.07 COMPREHENSIVE METABOLIC PANEL - Abnormal SODIUM 121 (*) POTASSIUM 4.7 CHLORIDE 84 (*) CO2 22 CALCIUM 10.4 (*) BUN 16 CREATININE 0.89 GLUCOSE 115 (*) TOTAL PROTEIN 7.3 ALBUMIN 3.9 BILIRUBIN TOTAL 0.8 ALKALINE PHOSPHATASE 125 (*) AST 107 (*) ALT 92 (*) GFR >60 ANION GAP 15 TROPONIN 2 HR, 5TH GEN - Abnormal TROPONIN T, 2 HR 5TH GEN 91 (*) DELTA 2HR TROPONIN T % -12 D-DIMER - Abnormal D-DIMER QUANT 0.89 (*) BRAIN NATRIURETIC PEPTIDE, BNP OR PROBNP - Abnormal PROBNP, N TERMINAL 13,504 (*) C-REACTIVE PROTEIN - Abnormal CRP 243.0 (*) URINALYSIS WITH REFLEX MICROSCOPIC - Abnormal COLOR UA Yellow CLARITY UA Clear SPECIFIC GRAVITY UA 1.010 PH UA 6.0 LEUKOCYTE ESTERASE UA Negative NITRITE UA Negative PROTEIN UA 2+ (*) GLUCOSE UA Negative KETONES UA 1+ (*) UROBILINOGEN UA 0.2 BILIRUBIN UA Negative BLOOD UA Trace (*) COVID-19 ANTIGEN - Abnormal COVID-19 ANTIGEN Positive (*) PROTIME-INR - Normal PROTIME 12.9 INR 1.0 PTT - Normal PTT 27.4 SEDIMENTATION RATE - Normal ESR (SEDIMENTATION RATE) 27 LACTIC ACID - Normal LACTIC ACID 1.8 MAGNESIUM LEVEL - Normal MAGNESIUM 2.0 URINALYSIS MICROSCOPY ONLY - Normal WBC UA 0-2 RBC UA 0-2 BACTERIA UA Negative EPITHELIAL CELLS, URINE 0-5 EXTRA TUBE EXTRA TUBE (BLUE) CBC WITHOUT DIFFERENTIAL TROPONIN 6 HR, 5TH GEN RADIOLOGY: CTA CHEST W AND/OR WO CONTRAST Radiologist Impression IMPRESSION: Please see below. Exam: CTA CHEST W AND/OR WO CONTRAST Date/Time of Exam: 03/13/2025 11:26 AM Reason For Exam: Pulmonary embolism (PE) suspected, high prob. Diagnosis: See Reason for Exam. Technique: CTA of the chest was performed prior to and/or following the administration of intravenous contrast. Post-processing was performed, including sagittal and coronal reformations and 3-D reconstruction. Contrast (if used): IOPAMIDOL 61 % INTRAVENOUS SOLUTION (SINGLE USE VIAL) Given:73 mL. Comparison: None. FINDINGS: Images are degraded by motion artifact. Within limitations of the exam, no evidence of central pulmonary thromboembolic disease. Distal segmental and subsegmental branches are poorly evaluated secondary to motion artifact. There is no evidence of significant right heart strain. There is no pericardial effusion. Multinodular thyroid. Mildly prominent mediastinal and right hilar lymph nodes. Right hilar lymph node measures 11 mm in short axis. There is patchy multifocal airspace disease bilaterally with small nodules and regions of consolidation which is most pronounced in the right middle lobe. There is scattered mild mucous plugging. There are small bilateral pleural effusions. There is no pneumothorax. There are no acute findings in the upper abdomen. Partially visualized right renal cysts. No destructive lytic or sclerotic bone lesions. IMPRESSION: 1. No evidence of pulmonary thromboembolic disease. 2. Multifocal pneumonia. Follow-up imaging to document resolution in 3-6 months suggested. 3. Small bilateral pleural effusions. CT HEAD WO CONTRAST Radiologist Impression IMPRESSION: No evidence of an acute intracranial process. Scattered paranasal sinus mucosal thickening. Fluid levels in the bilateral maxillary sinuses and sphenoid sinuses may reflect active sinus disease. EKG: PROCEDURES EKG 12 lead Date/Time: 03/13/2025 10:18 AM Performed by: Johann Granado MD Authorized by: Johann Granado MD ECG interpreted by ED Physician in the absence of a bat carrier: yes Rate: ECG rate: 151 ECG rate assessment: tachycardic Rhythm: Rhythm Origin: atrial Rhythm morphology: fibrillation Rhythm morphology comment: With RVR QRSTT: QRSTT changes: Yes Comments: T wave inversion in lead III, lead V2 and lead aVF. MEDICAL DECISION MAKING AND PLAN OF CARE Assessment & Plan Initial Assessment: Patient presents with shortness of breath, confirmed COVID-19, and atrial fibrillation with rapid ventricular response (RVR). History includes hypertension and recent travel. Differential Diagnosis: - Atrial fibrillation: Elevated heart rate, irregular rhythm. Diltiazem drip initiated. Heparin drip planned to prevent clotting. - Pulmonary embolism: Recent travel, elevated D-dimer. CTA performed, no PE found. - COVID-19 pneumonia: Confirmed COVID-19, multifocal pneumonia on CT. Antibiotics and steroids planned. - Sinus infection: Bilateral maxillary and sphenoid sinus disease on CT. Antibiotics and steroids planned. - Hyponatremia: Sodium level 121. Fluid management adjusted. - Transaminitis: Abnormal liver function tests. Further evaluation needed. ED Course: - EKG performed, showing atrial fibrillation with RVR. - Blood work obtained, showing elevated troponin, hyponatremia, and transaminitis. - Diltiazem drip started for heart rate control. - CTA performed, no pulmonary embolism found, multifocal pneumonia noted. - CT head performed, showing bilateral maxillary and sphenoid sinus disease. - Small bag of fluids administered for rehydration. - Ceftriaxone, azithromycin, dexamethasone, and Mucinex administered. Final Assessment: Patient with atrial fibrillation, COVID-19 pneumonia, hypoxia, hyponatremia, transaminitis, and sinus infection. Treatment included diltiazem drip, antibiotics, steroids, and fluids. No pulmonary embolism found on CTA. Clinical Impression: - Atrial fibrillation with RVR - COVID-19 pneumonia - Hypoxia - Hyponatremia - Transaminitis - Sinus infection Disposition: - Transfer: [place] for further evaluation and management, including cardiology consultation. Medical Decision Making Patient's EKG revealing atrial fibrillation with RVR which is new for the patient and she is currently not on the blood thinner. Concern also for possible PE given hypoxia, tachycardia and hypertension, and also in light of patient's recent travel Patient does have a strange ecchymosis around her left eye which she does not remember how she got it. Since patient's symptoms had just started this morning, will hold off on the anticoagulation, especially since patient has been getting bruising without much injury. Ordered blood work and CTA chest to rule out PE. Provided with diltiazem 10 mg IV to start with. Patient did not have significant improvement after receiving the first bolus of diltiazem and second dose of 15 mg was given and patient had minimal improvement in the pulse rate with significant fluctuations between 90 and 150 bpm. Decision was made to start patient on the diltiazem drip at this time. CT of the head was negative for any acute abnormality, so also started patient on a heparin drip inthe edition to that. After monitoring and coming very close to the highest dose of diltiazem per hour possible, patient had no effect on the heart rate and patient continued to be in 130s and 140s bpm, so changed the drip to amiodarone after providing with a bolus. Provided patient with ceftriaxone 2 g IVPB, azithromycin 500 mg IVPB, dexamethasone 10 mg IV push and Mucinex SR 600 mg once. Reached out to [facility] in [place] and initially was informed that they were not sure if beds would be open, and reached out to [facility] and patient was accepted, however the bed wait would also be a few days for their stepdown. Received a call back and was informed that patient was accepted to [facility] in [place] for further evaluation. Patient otherwise has stable blood pressure and afebrile. Oxygen saturation has been stable between 96 and 99% on 4 L of nasal cannula. At this time patient is awaiting transportation as bed has been assigned. Amount and/or Complexity of Data Reviewed Labs: ordered. Radiology: ordered. ECG/medicine tests: ordered and independent interpretation performed. Risk OTC drugs. Prescription drug management. Clinical Scoring & Consults Medications Administered During the ED Stay from 03/13/2025 0959 to 03/13/2025 1423 Date/Time Order Dose Route Action 03/13/2025 1019 CDT dilTIAZem (CARDIZEM) 5 mg/mL BOLUS injection 10 mg 10 mg IV Given 03/13/2025 1113 CDT sodium chloride 0.9 % bolus solution 250 mL 0 mL IV Stopped 03/13/2025 1043 CDT sodium chloride 0.9 % bolus solution 250 mL 250 mL IV New Bag 03/13/2025 1044 CDT dilTIAZem (CARDIZEM) 5 mg/mL BOLUS injection 15 mg 15 mg IV Given 03/13/2025 1124 CDT iopamidoL (ISOVUE-300) 61% injection (single-use vial) 73 mL 73 mL IV Contrast Given 03/13/2025 1124 CDT sodium chloride bacteriostatic 0.9 % injection 10 mL 10 mL IV Given 03/13/2025 1402 CDT dilTIAZem (CARDIZEM) 125 mg in sodium chloride 0.9 % 125 mL infusion 0 mg/hr IVStopped 03/13/2025 1400 CDT dilTIAZem (CARDIZEM) 125 mg in sodium chloride 0.9 % 125 mL infusion 12.5 mg/hrIV Rate Change 03/13/2025 1302 CDT dilTIAZem (CARDIZEM) 125 mg in sodium chloride 0.9 % 125 mL infusion 10 mg/hr IV Rate Change 03/13/2025 1210 CDT dilTIAZem (CARDIZEM) 125 mg in sodium chloride 0.9 % 125 mL infusion 7.5 mg/hr IV Rate Change 03/13/2025 1140 CDT dilTIAZem (CARDIZEM) 125 mg in sodium chloride 0.9 % 125 mL infusion 5 mg/hr IVNew Bag 03/13/2025 1225 CDT dexAMETHasone (DECADRON) injection 10 mg 10 mg IV Given 03/13/2025 1225 CDT heparin injection 3,500 Units 3,500 Units IV Given 03/13/2025 1226 CDT heparin in 0.45% NaCl 25,000 unit/250 mL infusion 15 Units/kg/hr IV New Bag 03/13/2025 1259 CDT cefTRIAXone (ROCEPHIN) 2,000 mg in sodium chloride 0.9% 50 mL IVPB (MBP) 0 mg IV Stopped 03/13/2025 1229 CDT cefTRIAXone (ROCEPHIN) 2,000 mg in sodium chloride 0.9% 50 mL IVPB (MBP) 2,000 mg IV New Bag 03/13/2025 1335 CDT azithromycin (ZITHROMAX) 500 mg in sodium chloride 0.9 % 250 mL IVPB 0 mg IV Stopped 03/13/2025 1235 CDT azithromycin (ZITHROMAX) 500 mg in sodium chloride 0.9 % 250 mL IVPB 500 mg IV New Bag 03/13/2025 1225 CDT guaiFENesin (MUCINEX) SR tablet 600 mg 600 mg Oral Given 03/13/2025 1247 CDT levalbuterol (XOPENEX) 1.25 mg/3 mL inhalation solution 1.25 mg 1.25 mg Inhalation Given 03/13/2025 1247 CDT ipratropium bromide (ATROVENT) 0.02 % nebulizer solution 0.5 mg 0.5 mg Inhalation Given 03/13/2025 1406 CDT amiodarone in dextrose (ISO-OSM) (NEXTERONE) 150 mg/100 mL (1.5 mg/mL) IVPB 150mg 0 mg IV Stopped 03/13/2025 1356 CDT amiodarone in dextrose (ISO-OSM) (NEXTERONE) 150 mg/100 mL (1.5 mg/mL) IVPB 150mg 150 mg IV New Bag 03/13/2025 1409 CDT amiodarone in dextrose (ISO-OSM) (NEXTERONE) 360 mg/200 mL (1.8 mg/mL) IV infusion 1 mg/min IV New Bag . New Prescriptions for this Encounter LAST VS BP: (!) 92/73 (03/13/25 1400), Heart Rate: (!) 119 bpm (03/13/25 1400), Resp: 20 (03/13/25 1400), Pulse: 76 (03/13/251399), Temp: 98.7 ??F (37.1 ??C) (03/13/25957), Temp src: Tympanic (03/13/25957), SpO2: 94 % (03/13/251399) CLINICAL IMPRESSION Diagnoses Diagnosis Comment Added By Time Added New onset atrial fibrillation (CMS/HCC) [I48.91] Johann Granado MD 03/13/2025 1:35 PM COVID-19 virus detected [U07.1] Johann Granado MD 03/13/2025 1:35 PM Multifocal pneumonia [J18.9] Johann Granado MD 03/13/2025 1:35 PM DISPOSITION, EDUCATION AND MEDICATION RECONCILIATION Medications reconciled. See after visit summary for patient education on discharged patients. ED Disposition ED Disposition Transfer Condition Stable User Johann Granado MD Date/Time WedMar 13, 2025 2:13 PM Comment -- Diagnoses Diagnosis Comment Added By Time Added New onset atrial fibrillation (CMS/HCC) [I48.91] Johann Granado MD 03/13/2025 1:35 PM COVID-19 virus detected [U07.1] Johann Granado MD 03/13/2025 1:35 PM Multifocal pneumonia [J18.9] Johann Granado MD 03/13/2025 1:35 PM documented in this encounter Plan of Treatment Upcoming Encounters Date Type Department Care Team (Late st Contact Info) Description 03/22/2025 12:40 PM CDT Office Visit [facility] [address] [place] [address] Brandee Blackwell FNP [address] [place] [address] 05/31/2025 2:20 PM CDT Office Visit [facility] [place] [address] [address] Diane Funk MD [address] [address] Scheduled Orders Name Type Priority Associated Diagnoses Orde r Schedule TROPONIN 6 HR, 5TH GEN Lab Timed Study O NE TIME for 1 Occurrences starting 03/13/2025 until 03/13/2025 CBC WITHOUT DIFFERENTIAL Lab Routine EVERY SEVENTY-TWO HOURS until discontinued starting 03/13/2025 documented as of this encounter Procedures Procedure Name Priority Date/Time Associated Diagnosis Comments URINALYSIS MICROSCOPY ONLY Stat 03/13/2025 1:46 PM CDT URINALYSIS W/REFLEX MICROSCOPIC Stat 03/13/2025 1:46 PM CDT TROPONIN 2 HR, 5TH GEN Timed Study 03/13/2025 12:15 PM CDT CTA CHEST W AND/OR WO CONTRAST Stat 03/13/2025 11:[address] HEAD WO CONTRAST Stat 03/13/2025 1 1:22 AM CDT COVID-19 ANTIGEN Stat 03/13/2025 10:2 3 AM CDT EKG 12-LEAD Stat 03/13/2025 10:18 AM CDT OXYGEN VIA DEVICE TO KEEP O2 SAT ABOVE Stat 03/13/2025 10:06 AM CDT EXTRA TUBE (BLUE) Stat 03/13/2025 10: 00 AM CDT EXTRA TUBE Stat 03/13/2025 10:00 AM CDT TROPONIN BASELINE, 5TH GEN Stat 03/13/2025 10:00 AM CDT LACTIC ACID Stat 03/13/2025 10:00 AM CDT CBC WITH DIFFERENTIAL Stat 03/13/2025 10:00 AM CDT PTT Stat 03/13/2025 10:00 AM CDT SEDIMENTATION RATE Stat 03/13/2025 10 :00 AM CDT PROTIME-INR Stat 03/13/2025 10:00 AM CDT D-DIMER Stat 03/13/2025 10:00 AM CDT C-REACTIVE PROTEIN Stat 03/13/2025 10 :00 AM CDT BRAIN NATRIURETIC PEPTIDE, BNP OR PROBNP Stat 03/13/2025 10:00 AM CDT MAGNESIUM LEVEL Stat 03/13/2025 10:00 AM CDT COMPREHENSIVE METABOLIC PANEL Stat 03/13/2025 10:00 AM CDT documented in this encounter Results * URINALYSIS MICROSCOPY ONLY (03/13/2025 1:46 PM CDT) WBC UA 0-2 0 - 2 /hpf 03/13/2025 2:11 PM CDT [facility] RBC UA 0-2 0 - 2 /hpf 03/13/2025 2:11 PM CDT [facility] BACTERIA UA Negative Negative /hpf 03/13/2025 2:11 PM CDT [facility] EPITHELIAL CELLS, URINE 0-5 0 - 5 /hpf 03/13/2025 2:11 PM CDT [facility] Urine URINE SPECIMEN OBTAINED BY CLEAN CATCH PROCEDURE / Unknown Collection / Unknown 03/13/2025 1:46 PM CDT 03/13/2025 1:58 PM CDT Johann Granado MD URINE ORDERABLES Final Result [facility] CLIA # [id number] [address] [place] [address] * (ABNORMAL) URINALYSIS WITH REFLEX MICROSCOPIC (03/13/2025 1:46 PM CDT) COLOR UA Yellow Pale to Dark Yellow 03/13/2025 2:11 PM CDT [facility] CLARITY UA Clear Clear 03/13/2025 2:11 PM CDT [facility] SPECIFIC GRAVITY UA 1.010 1.003 - 1.035 03/13/2025 2:11 PM T [facility] PH UA 6.0 5.0 - 8.0 03/13/2025 2:11 PM T [facility] LEUKOCYTE ESTERASE UA Negative Negative 03/13/2025 2:11 PM CDT [facility] NITRITE UA Negative Negative 03/13/2025 2:11 PM T [facility] PROTEIN UA 2+(A) Negative 03/13/2025 2:11 PM T [facility] GLUCOSE UA Negative Negative 03/13/2025 2:11 PM T [facility] KETONES UA 1+(A) Negative 03/13/2025 2:11 PM CDT [facility] UROBILINOGEN UA 0.2 <2.0 mg/dL 2:11 PM T [facility] BILIRUBIN UA Negative Negative 03/13/2025 2:11 PM T [facility] BLOOD UA Trace(A) Negative 03/13/2025 2:11 PM T [facility] Urine URINE SPECIMEN OBTAINED BY CLEAN CATCH PROCEDURE / Unknown Collection / Unknown 03/13/2025 1:46 PM CDT 03/13/2025 1:58 PM CDT Johann Granado MD URINE ORDERABLES Final Result Performing Organization Address City/[facility]/ZIP Co de Phone Number [id number] [address] [place] [phone] * (ABNORMAL) TROPONIN 2 HR, 5TH GEN (03/13/2025 12:15 PM CDT) TROPONIN T, 2 HR 5TH GEN 91(H) <=10 ng/L 03/13/2025 12:43 PM CDT [facility] DELTA 2HR TROPONIN T % -12 See Interp. % 03/13/2025 12:43 PM CDT [facility] Blood BLOOD SPECIMEN / Unknown Collection / Unknown 03/13/2025 12:15 PM CDT 03/13/2025 12:28 PM CDT Narrative [facility] - 03/13/2025 12:43 PM CDT Troponin elevated. Delta not changing. Johann Granado MD CHEMISTRY ORDERABLES Final Resu lt Performing Organization Address City/[facility]/ZIP Co de Phone Number [id number] [address] [place] [phone] * CTA CHEST W AND/OR WO CONTRAST (03/13/2025 11:26 AM CDT) Anatomical Region Laterality Modality Chest Computed Tomogra phy 03/13/2025 11:2 6 AM CDT Impressions 03/13/2025 11:37 AM CDT IMPRESSION: Please see below. Exam: CTA CHEST W AND/OR WO CONTRAST Date/Time of Exam: 03/13/2025 11:26 AM Reason For Exam: Pulmonary embolism (PE) suspected, high prob. Diagnosis: See Reason for Exam. Technique: CTA of the chest was performed prior to and/or following the administration of intravenous contrast. Post-processing was performed, including sagittal and coronal reformations and 3-D reconstruction. Contrast (if used): IOPAMIDOL 61 % INTRAVENOUS SOLUTION (SINGLE USE VIAL) Given:73 mL. Comparison: None. FINDINGS: Images are degraded by motion artifact. Within limitations of the exam, no evidence of central pulmonary thromboembolic disease. Distal segmental and subsegmental branches are poorly evaluated secondary to motion artifact. There is no evidence of significant right heart strain. There is no pericardial effusion. Multinodular thyroid. Mildly prominent mediastinal and right hilar lymph nodes. Right hilar lymph node measures 11 mm in short axis. There is patchy multifocal airspace disease bilaterally with small nodules and regions of consolidation which is most pronounced in the right middle lobe. There is scattered mild mucous plugging. There are small bilateral pleural effusions. There is no pneumothorax. There are no acute findings in the upper abdomen. Partially visualized right renal cysts. No destructive lytic or sclerotic bone lesions. IMPRESSION: 1. No evidence of pulmonary thromboembolic disease. 2. Multifocal pneumonia. Follow-up imaging to document resolution in 3-6 months suggested. 3. Small bilateral pleural effusions. Narrative Procedure Note Jose Davis MD - 03/13/2025 IMPRESSION: Please see below. Exam: CTA CHEST W AND/OR WO CONTRAST Date/Time of Exam: 03/13/2025 11:26 AM Reason For Exam: Pulmonary embolism (PE) suspected, high prob. Diagnosis: See Reason for Exam. Technique: CTA of the chest was performed prior to and/or following the administration of intravenous contrast. Post-processing was performed, including sagittal and coronal reformations and 3-D reconstruction. Contrast (if used): IOPAMIDOL 61 % INTRAVENOUS SOLUTION (SINGLE USE VIAL) Given:73 mL. Comparison: None. FINDINGS: Images are degraded by motion artifact. Within limitations of the exam, no evidence of central pulmonary thromboembolic disease. Distal segmental and subsegmental branches are poorly evaluated secondary to motion artifact. There is no evidence of significant right heart strain. There is no pericardial effusion. Multinodular thyroid. Mildly prominent mediastinal and right hilar lymph nodes. Right hilar lymph node measures 11 mm in short axis. There is patchy multifocal airspace disease bilaterally with small nodules and regions of consolidation which is most pronounced in the right middle lobe. There is scattered mild mucous plugging. There are small bilateral pleural effusions. There is no pneumothorax. There are no acute findings in the upper abdomen. Partially visualized right renal cysts. No destructive lytic or sclerotic bone lesions. IMPRESSION: 1. No evidence of pulmonary thromboembolic disease. 2. Multifocal pneumonia. Follow-up imaging to document resolution in 3-6 months suggested. 3. Small bilateral pleural effusions. Johann Granado MD CT ORDERABLES Final Result * CT HEAD WO CONTRAST (03/13/2025 11:22 AM CDT) Anatomical Region Laterality Modality Head Computed Tomogra phy 03/13/2025 11:2 2 AM CDT Impressions 03/13/2025 11:43 AM CDT IMPRESSION: No evidence of an acute intracranial process. Scattered paranasal sinus mucosal thickening. Fluid levels in the bilateral maxillary sinuses and sphenoid sinuses may reflect active sinus disease. Narrative 03/13/2025 11:43 AM CDT EXAM: CT HEAD WO CONTRAST DATE/TIME OF EXAM: 03/13/2025 11:22 AM REASON FOR STUDY: trauma DIAGNOSIS: See Reason for Exam COMPARISON: None Available TECHNIQUE: CT head performed without contrast. FINDINGS: There is no evidence of an acute territorial infarct, parenchymal hemorrhage, hydrocephalus or abnormal extra-axial fluid collection. No midline shift. Basilar cisterns remain patent. Mild parenchymal volume loss. Patchy areas of decreased attenuation in the subcortical and periventricular white matter are nonspecific but are most consistent with chronic microvascular angiopathy. Atherosclerotic calcifications within the intradural vertebral arteries and parasellar ICAs bilaterally. No mastoid effusion. Scattered paranasal sinus mucosal thickening. Fluid levels in the bilateral maxillary sinuses and sphenoid sinuses may reflect active sinus disease. No calvarial fracture. No sizable scalp hematoma. Procedure Note Martina Veronica MD - 03/13/2025 EXAM: CT HEAD WO CONTRAST DATE/TIME OF EXAM: 03/13/2025 11:22 AM REASON FOR STUDY: trauma DIAGNOSIS: See Reason for Exam COMPARISON: None Available TECHNIQUE: CT head performed without contrast. FINDINGS: There is no evidence of an acute territorial infarct, parenchymal hemorrhage, hydrocephalus or abnormal extra-axial fluid collection. No midline shift. Basilar cisterns remain patent. Mild parenchymal volume loss. Patchy areas of decreased attenuation in the subcortical and periventricular white matter are nonspecific but are most consistent with chronic microvascular angiopathy. Atherosclerotic calcifications within the intradural vertebral arteries and parasellar ICAs bilaterally. No mastoid effusion. Scattered paranasal sinus mucosal thickening. Fluid levels in the bilateral maxillary sinuses and sphenoid sinuses may reflect active sinus disease. No calvarial fracture. No sizable scalp hematoma. IMPRESSION: No evidence of an acute intracranial process. Scattered paranasal sinus mucosal thickening. Fluid levels in the bilateral maxillary sinuses and sphenoid sinuses may reflect active sinus disease. Johann Granado MD CT ORDERABLES Final Result * (ABNORMAL) COVID-19 ANTIGEN (03/13/2025 10:23 AM CDT) [facility] Signature COVID-19 ANTIGEN POSITIVE( A) Presumptive Negative 03/13/2025 10:45 AM CDT [facility] Upper Respiratory ANTERIOR NARES SWAB / Unknown Collection / Unknown 03/13/2025 10:23 AM CDT 03/13/2025 10:29 AM CDT [facility] - 03/13/2025 10:45 AM CDT Domitila SARS antigen test has been authorized by FDA under an emergency use authorization (EUA) and has been authorized only for the detection of proteins from SARS-CoV-2 and influenza, not for any other viruses or pathogens. Domitila SARS Antigen ANTON is intended for the simultaneous qualitative detection and differentiation of nucleocapsid protein antigen from SARS-CoV-2 directly from nasopharyngeal (VALIDATION SOFTWARE FACILITATOR) and nasal (NS) swab specimens collected from individuals who are suspected of respiratory viral infection consistent with COVID-19 by their healthcare provider within the first five (5) days of symptom onset when tested at least twice over three days with at least 48 hours between tests, or from individuals without symptoms or other epidemiological reasons to suspect COVID-19 when tested at least three times over five days with at least 48 hours between tests. This test is only authorized for the duration of the declaration that circumstances exist justifying the authorization of emergency use of in vitro diagnostics for detection and/or diagnosis of the virus that causes COVID-19 under Section 564(b)(1) of the Act, 21 U.S.C. 360bbb-3(b)(1), unless the authorization is terminated or revoked sooner. Negative results should be treated as presumptive and confirmed with a molecular assay, if necessary for patient care. Serial testing should be performed in individuals with negative results at least twice over three days (with 48 hours between tests) for symptomatic individuals or from individuals without symptoms or other epidemiological reasons to suspect COVID-19 when tested at least three times over five days with at least 48 hours between tests. us Johann Granado MD MICROBIOLOGY - GENERAL ORDERABL ES Final Result Performing Organization Address [facility] de Phone Number [id number] [address] [place] [address]356 * EKG 12 lead (03/13/2025 10:18 AM CDT) Narrative Johann Granado MD - 03/13/2025 10:18 AM CDT Johann Granado MD 03/13/2025 2:23 PM EKG 12 lead Date/Time: 03/13/2025 10:18 AM Performed by: Johann Granado MD Authorized by: Johann Granado MD ECG interpreted by ED Physician in the absence of a bat carrier: yes Rate: ECG rate: 151 ECG rate assessment: tachycardic Rhythm: Rhythm Origin: atrial Rhythm morphology: fibrillation Rhythm morphology comment: With RVR QRSTT: QRSTT changes: Yes Comments: T wave inversion in lead III, lead V2 and lead aVF. us Johann Granado MD ECG ORDERABLES Final Result * MAGNESIUM LEVEL (03/13/2025 10:00 AM CDT) MAGNESIUM 2.0 1.6 - 2.4 mg/dL 03/13/2025 10:34 AM CDT [facility] Blood BLOOD SPECIMEN / Unknown Collection / Unknown 03/13/2025 10:00 AM CDT 03/13/2025 10:11 AM CDT us Johann Granado MD CHEMISTRY ORDERABLES Final Resu lt Performing Organization Address [facility] Co de Phone Number [facility] [id number] [address] [place] [address] * (ABNORMAL) C-REACTIVE PROTEIN (03/13/2025 10:00 AM CDT) CRP 243.0(H) <5.0 mg/L 03/13/2025 10:34 AM CDT [facility] Blood BLOOD SPECIMEN / Unknown Collection / Unknown 03/13/2025 10:00 AM CDT 03/13/2025 10:11 AM CDT us Johann Granado MD CHEMISTRY ORDERABLES Final Resu lt Performing Organization Address City/[facility]/ZIP Co de Phone Number [facility] CLIA # [id number] [address] [place] [phone] * LACTIC ACID (03/13/2025 10:00 AM CDT) LACTIC ACID 1.8 <=2.0 mmol/L 03/13/2025 10:32 AM CDT [facility] Blood BLOOD SPECIMEN / Unknown Collection / Unknown 03/13/2025 10:00 AM CDT 03/13/2025 10:17 AM CDT us Johann Granado MD CHEMISTRY ORDERABLES Final Resu lt Performing Organization Address City/[facility]/ZIP Co de Phone Number [facility] CLIA # [id number] [address] [place] [address]17 * (ABNORMAL) BRAIN NATRIURETIC PEPTIDE, BNP OR PROBNP (03/13/2025 10:00 AM CDT) PROBNP, N TERMINAL 13,504(H) 0 - 450 pg/mL 03/13/2025 10:34 AM CDT [facility] Comment: INTERPRETIVE COMMENT based on diagnosis: Diagnostic NT pro-BNP cutoffs for Heart Failure in the absence of renal failure is suggested for the following ranges <75 years: <125 pg/mL >=75 years: <450 pg/mL Exclusionary rule out cut-point for Acute Decompensated Heart Failure(ADHF) All ages: <300 pg/mL Diagnostic NT pro-BNP cutoffs for Acute Decompensated Heart Failure(ADHF) in the absence of renal failure is suggested for the following ages <50 years: > 450 pg/mL 50-75 years: > 900 pg/mL >75 years: >1800 pg/mL Blood BLOOD SPECIMEN / Unknown Collection / Unknown 03/13/2025 10:00 AM CDT 03/13/2025 10:11 AM CDT Johann Granado MD CHEMISTRY ORDERABLES Final Resu lt Performing Organization Address [facility] de Phone Number [facility] CLIA # [id number] [address] [place] [address] [phone] * SEDIMENTATION RATE (03/13/2025 10:00 AM CDT) ESR (SEDIMENTATION RATE) 27 0 - 30 mm/Hr 03/13/2025 10:34 AM CDT [facility] Blood BLOOD SPECIMEN / Unknown Collection / Unknown 03/13/2025 10:00 AM CDT 03/13/2025 10:09 AM CDT Narrative [facility] - 03/13/2025 10:34 AM CDT Tube Lot: [id number] Exp Date: 08/15/2026 QC1 LOT [id number] EXP.08/20/2025 QC2 LOT [id number] EXP.08/20/2025 Johann Granado MD HEMATOLOGY ORDERABLES Final Res ult Performing Organization Address [facility] Co de Phone Number [facility] CLIA # [id number] [address] [place] [address] 26685 * (ABNORMAL) D-DIMER (03/13/2025 10:00 AM CDT) D-DIMER QUANT 0.89(H) <0.50 ug/mL FEU 03/13/2025 10:29 AM CDT [facility] Blood BLOOD SPECIMEN / Unknown Collection / Unknown 03/13/2025 10:00 AM CDT 03/13/2025 10:14 AM CDT Narrative [facility] - 03/13/2025 10:29 AM CDT D-Dimer assay cutoff value for exclusion of DVT and/or PE is <0.50 ug/mL FEU. As D-Dimer levels increase naturally with age, age stratification for patients over 50 is potentially more appropriate in determining whether a patient should undergo further evaluation for DVT and/or PE than a general cutoff of 0.50 ug/mL FEU. Clinical consideration is recommended. Age Stratified Cutoff Values: 50-60 years: 0.50-0.60 ug/mL FEU 61-70 years: 0.61-0.70 ug/mL FEU 71-80 years: 0.71-0.80 ug/mL FEU us Johann Granado MD HEMATOLOGY ORDERABLES Final Res ult Performing Organization Address City/[facility]/ZIP Co de Phone Number [facility] CLIA # [id number] [address] [place] [address]50 * PTT (03/13/2025 10:00 AM CDT) PTT 27.4 25.1 - 35.4 seconds 03/13/2025 10:26 AM CDT [facility] Blood BLOOD SPECIMEN / Unknown Collection / Unknown 03/13/2025 10:00 AM CDT 03/13/2025 10:14 AM CDT us Johann Granado MD HEMATOLOGY ORDERABLES Final Res ult [facility] CLIA # [id number] [address] [place] [address] 69135 * PROTIME-INR (03/13/2025 10:00 AM CDT) PROTIME 12.9 12.1 - 14.3 Seconds 03/13/2025 10:26 AM CDT [facility] INR 1.0 0.9 - 1.1 03/13/2025 10:26 AM CDT [facility] Blood BLOOD SPECIMEN / Unknown Collection / Unknown 03/13/2025 10:00 AM CDT 03/13/2025 10:14 AM CDT us Johann Granado MD HEMATOLOGY ORDERABLES Final Res ult Performing Organization Address City/[facility]/ZIP Co de Phone Number [facility] CLIA # [id number] [address] [place] [address] * EXTRA TUBE (BLUE) (03/13/2025 10:00 AM CDT) Blood BLOOD SPECIMEN / Unknown Collection / Unknown 03/13/2025 10:00 AM CDT 03/13/2025 10:11 AM CDT us Johann Granado MD HEMATOLOGY ORDERABLES Final Res ult Performing Organization Address [facility] Phone Number [facility] CLIA # [id number] [address] [place] [address] [phone] * (ABNORMAL) COMPREHENSIVE METABOLIC PANEL (03/13/2025 10:00 AM CDT) SODIUM 121(L) 136 - 145 mmol/L 03/13/2025 10:34 AM [facility] POTASSIUM 4.7 3.5 - 5.1 mmol/L 03/13/2025 10:34 AM [facility] CHLORIDE 84(L) 98 - 107 mmol/L 03/13/2025 10:34 AM [facility] CO2 22 22 - 29 mmol/L 03/13/2025 10:34 AM [facility] CALCIUM 10.4(H) 8.8 - 10.2 mg/dL 03/13/2025 10:34 AM [facility] BUN 16 8 - 23 mg/dL 03/13/2025 10:34 AM [facility] CREATININE 0.89 0.51 - 0.95 mg/dL 03/13/2025 10:34 AM [facility] Comment:The GFR result is no t clinically significant on patients <18 or >70 years of age. GLUCOSE 115(H) 74 - 99 mg/dL 03/13/2025 10:34 AM [facility] TOTAL PROTEIN 7.3 6.6 - 8.7 g/dL 03/13/2025 10:34 AM [facility] ALBUMIN 3.9 3.5 - 5.2 g/dL 03/13/2025 10:34 AM [facility] BILIRUBIN TOTAL 0.8 0.0 - 1.2 mg/dL 03/13/2025 10:34 AM [facility] ALKALINE PHOSPHATASE 125(H) 35 - 104 U/L 03/13/2025 10:34 AM [facility] AST 107(H) 0 - 35 U/L 03/13/2025 10:34 AM [facility] ALT 92(H) 0 - 35 U/L 03/13/2025 10:34 AM [facility] GFR >60 mL/min/1.7 3 sq meter 03/13/2025 10:34 AM [facility] Comment:eGFR calculated with 2020 CKD-EPI equation. Vegetarian diet, extremely high or low muscle mass, and may affect results. Cystatin C with Glomerular Filtration Rate is a suitable alternative for these patients. ANION GAP 15 5 - 20 mmol/L 03/13/2025 10:34 AM [facility] Blood BLOOD SPECIMEN / Unknown Collection / Unknown 03/13/2025 10:00 AM CDT 03/13/2025 10:11 AM CDT us Johann Granado MD CHEMISTRY ORDERABLES Final Resu lt [facility] CLIA # [id number] [address] [place] [address] 65548 * (ABNORMAL) CBC WITH DIFFERENTIAL (03/13/2025 10:00 AM CDT) WBC 14.3(H) 4.0 - 10.0 K/uL 03/13/2025 10:17 AM [facility] RBC 4.18 3.93 - 5.22 M/uL 03/13/2025 10:17 AM [facility] HEMOGLOBIN 13.0 11.2 - 15.7 g/dL 03/13/2025 10:17 AM [facility] HEMATOCRIT 38.7 34.1 - 44.9 % 03/13/2025 10:17 AM [facility] MCV 92.6 79.4 - 94.8 fL 03/13/2025 10:17 AM [facility] MCH 31.1 25.6 - 32.2 pg 03/13/2025 10:17 AM [facility] MCHC 33.6 32.2 - 35.5 g/dL 03/13/2025 10:17 AM [facility] RDW 13.2 11.0 - 14.5 % 03/13/2025 10:17 AM [facility] RDW-STDEV 44.8 36.9 - 56.9 fL 03/13/2025 10:17 AM [facility] PLATELETS 218 163 - 337 K/uL 03/13/2025 10:17 AM [facility] MPV 11.1 10.0 - 14.8 fL 03/13/2025 10:17 AM [facility] NEUTROPHILS 88(H) 34 - 71 % 03/13/2025 10:17 AM [facility] LYMPHOCYTES 5(L) 19 - 52 % 03/13/2025 10:17 AM [facility] MONOCYTES 6 5 - 13 % 03/13/2025 10:17 AM [facility] EOSINOPHILS 0(L) 1 - 6 % 03/13/2025 10:17 AM [facility] BASOPHILS 0 0 - 1 % 03/13/2025 10:17 AM [facility] IMMATURE GRANULOCYTES 1 % 03/13/2025 10:17 AM [facility] NEUTROPHIL ABSOLUTE 12.64(H) 1.56 - 6.13 K/uL 03/13/2025 10:17 AM CDT [facility] LYMPHOCYTE ABSOLUTE 0.65(L) 1.20 - 3.40 K/uL 03/13/2025 10:17 AM CDT [facility] MONOCYTE ABSOLUTE 0.92(H) 0.24 - 0.36 K/uL 03/13/2025 10:17 AM CDT [facility] EOSINOPHIL ABSOLUTE 0.01(L) 0.04 - 0.36 K/uL 03/13/2025 10:17 AM CDT [facility] BASOPHILS ABSOLUTE 0.03 0.01 - 0.08 K/uL 03/13/2025 10:17 AM CDT [facility] IMMATURE GRANULOCYTES ABSOLUTE 0.07 K/uL 03/13/2025 10:17 AM CDT [facility] Blood BLOOD SPECIMEN / Unknown Collection / Unknown 03/13/2025 10:00 AM CDT 03/13/2025 10:09 AM CDT us Johann Granado MD HEMATOLOGY ORDERABLES Final Res ult [facility] CLIA # [id number] [address] [place] [address] 65548 * (ABNORMAL) TROPONIN BASELINE, 5TH GEN (03/13/2025 10:00 AM CDT) TROPONIN T, BASELINE 5TH GEN 103(HH) <=10 ng/L 03/13/2025 10:33 AM CDT [facility] Blood BLOOD SPECIMEN / Unknown Collection / Unknown 03/13/2025 10:00 AM CDT 03/13/2025 10:11 AM CDT Narrative [facility] - 03/13/2025 10:33 AM CDT Troponin elevated. us Johann Granado MD CHEMISTRY ORDERABLES Final Resu lt [facility] CLIA # [id number] [address] [place] [address], [place] [address] documented in this encounter Visit Diagnoses Diagnosis New onset atrial fibrillation (CMS/HCC)- Primary Atrial fibrillation New onset atrial fibrillation (CMS/HCC) Atrial fibrillation COVID-19 virus detected Multifocal pneumonia Multifocal pneumonia COVID-19 virus detected documented in this encounter Administered Medications Active Administered Medications - up to 3 most recent administrations Medication Order MAR Action Action Date Dose Rate Site amiodarone in dextrose (ISO-OSM) (NEXTERONE) 360 mg/200 mL (1.8 mg/mL) IV infusion 1 mg/min (33.3333 mL/hr, rounded to 33.33 mL/hr), IV, CONTINUOUS, Starting on Wed03/13/25 at 1400, Until Wed03/13/25 at 2159 New Bag 03/13/2025 2:09 PM CDT 1 mg/min 33.33 mL/hr amiodarone in dextrose (ISO-OSM) (NEXTERONE) 360 mg/200 mL (1.8 mg/mL) IV infusion 0.5 mg/min (16.6667 mL/hr, rounded to 16.67 mL/hr), IV, CONTINUOUS, Starting on Wed03/13/25 at 2000, Until Discontinued guaiFENesin (MUCINEX) SR tablet 600 mg 600 mg, Oral, EVERY 12 HOURS (BlD), First dose on Wed03/13/25 at 1215, Until Discontinued, Routine Given 03/13/2025 12:25 PM CDT 600 mg heparin in 0.45% NaCl 25,000 unit/250 mL infusion 15 Units/kg/hr 56.9 kg (8.535 mL/hr, rounded to 8.5 mL/hr), IV, TITRATE, Starting on Wed03/13/25 at 1200, Until Discontinued, Indication: A Fib, Dosing by: PER PROTOCOL: Delegate to facility protocol per indication, Re-bolus within Protocol? No, titrate infusion ONLY New Bag 03/13/2025 12:26 PM CDT 15 Units/kg/hr 8.5 mL/hr sodium chloride bacteriostatic 0.9 % injection 10 mL 10 mL, IV, SEE ADMIN INSTRUCTIONS, Starting on Wed03/13/25 at 1123, Until Discontinued, Routine Given 03/13/2025 11:24 AM CDT 10 mL sodium chloride flush injection 10 mL 10 mL, IV, EVERY 12 HOURS (BlD), First dose on Wed03/13/25 at 1015, Until Discontinued, Routine sodium chloride flush injection 10 mL 10 mL, IV, SEE ADMIN INSTRUCTIONS, Starting on Wed03/13/25 at 1005, Until Discontinued, Routine Inactive Administered Medications - up to 3 most recent administrations Medication Order MAR Action Action Date Dose Rate Site amiodarone in dextrose (ISO-OSM) (NEXTERONE) 150 mg/100 mL (1.5 mg/mL) IVPB 150 mg 150 mg, IV, ONE TIME ONLY, 1 dose, On Wed03/13/25 at 1400, Routine New Bag 03/13/2025 1:56 PM CDT 150 mg 600 mL/hr azithromycin (ZITHROMAX) 500 mg in sodium chloride 0.9 % 250 mL IVPB 500 mg, IV, ONE TIME ONLY, 1 dose, On Wed03/13/25 at 1200, Routine, Antibiotic Indication: Pneumonia - Community-acquired(CAP) New Bag 03/13/2025 12:35 PM CDT 500 mg 285 mL/hr cefTRIAXone (ROCEPHIN) 2,000 mg in sodium chloride 0.9% 50 mL IVPB (MBP) 2,000 mg, IV, ONE TIME ONLY, 1 dose, On Wed03/13/25 at 1200, Routine, Antibiotic Indication: Pneumonia - Community-acquired(CAP) New Bag 03/13/2025 12:29 PM CDT 2,000 mg 118 mL/hr dexAMETHasone (DECADRON) injection 10 mg 10 mg, IV, ONE TIME ONLY, 1 dose, On Wed03/13/25 at 1200, Routine Given 03/13/2025 12:25 PM CDT 10 mg dilTIAZem (CARDIZEM) 125 mg in sodium chloride 0.9 % 125 mL infusion 0-15 mg/hr (0-15 mL/hr), IV, TITRATE, Starting on Wed03/13/25 at 1130, Until Wed03/13/25 at 1346, Should this infusion be titrated? Yes, Initial infusion dose? 5 mg/hr, Titration Dose Increment? 2.5 mg/hr, Titration Interval? 30 minutes, Heart Rate Goal? Equal to or Less than 120 Rate Change 03/13/2025 2:00 PM CDT 12.5 mg/hr 12.5 mL/hr Rate Change 03/13/2025 1:02 PM CDT 10 mg/hr 10 mL/hr Rate Change 03/13/2025 12:10 PM CDT 7.5 mg/hr 7.5 mL/hr dilTIAZem (CARDIZEM) 5 mg/mL BOLUS injection 10 mg 10 mg, IV, ONE TIME ONLY, 1 dose, On Wed03/13/25 at 1015, Routine Given 03/13/2025 10:19 AM CDT 10 mg dilTIAZem (CARDIZEM) 5 mg/mL BOLUS injection 15 mg 15 mg, IV, ONE TIME ONLY, 1 dose, On Wed03/13/25 at 1045, Routine Given 03/13/2025 10:44 AM CDT 15 mg heparin injection 3,500 Units 3,500 Units (rounded from 3,414 Units = 60 Units/kg 56.9 kg), IV, ONE TIME ONLY, 1 dose, On Wed03/13/25 at 1200, RoutineIndications:Atrial Fibrillation Given 03/13/2025 12:25 PM CDT 3,500 Units iopamidoL (ISOVUE-300) 61% injection (single-use vial) 73 mL 73 mL, IV, INTRA-PROCEDURE ONCE, 1 dose, Starting on Wed03/13/25 at 1123, Until Wed03/13/25 at 1124, Routine Contrast Given 03/13/2025 11:24 AM CDT 73 mL ipratropium bromide (ATROVENT) 0.02 % nebulizer solution 0.5 mg 0.5 mg, Inhalation, ONE TIME ONLY RESPIRATORY, 1 dose, On Wed03/13/25 at 1245, Routine Given 03/13/2025 12:47 PM CDT 0.5 mg levalbuterol (XOPENEX) 1.25 mg/3 mL inhalation solution 1.25 mg 1.25 mg, Inhalation, ONE TIME ONLY RESPIRATORY, 1 dose, On Wed03/13/25 at 1245, Routine Given 03/13/2025 12:47 PM CDT 1.25 mg sodium chloride 0.9 % bolus solution 250 mL 250 mL, IV, ONE TIME ONLY, 1 dose, On Wed03/13/25 at 1045, at 500 mL/hr, Administer over 30 Minutes, Routine New Bag 03/13/2025 10:43 AM CDT 250 mL 500 mL/hr documented in this encounter Active and Recently Administered Medications Times are shown in CDT. Scheduled Medication Order 03/11/2025 03/12/2025 03/13/2025 amiodarone in dextrose (ISO-OSM) (NEXTERONE) 150 mg/100 mL (1.5 mg/mL) IVPB 150 mg (COMPLETED) 150 mg, IV, ONE TIME ONLY, 1 dose, On e 03/13/25 at 1400, Routine 1356 (New Bag - Prov ider: Tomasz Winters RN)1406 (Stopped - Provider: Tomasz Winters RN) azithromycin (ZITHROMAX) 500 mg in sodium chloride 0.9 % 250 mL IVPB (COMPLETED) 500 mg, IV, ONE TIME ONLY, 1 dose, On 03/13/25 at 1200, Routine, Antibiotic Indication: Pneumonia - Community-acquired(CAP) 1235 (New Bag - Prov ider: Tomasz Winters RN)1335 (Stopped - Provider: Tomasz Winters RN) cefTRIAXone (ROCEPHIN) 2,000 mg in sodium chloride 0.9% 50 mL IVPB (MBP) (COMPLETED) 2,000 mg, IV, ONE TIME ONLY, 1 dose, On 03/13/25 at 1200, Routine, Antibiotic Indication: Pneumonia - Community-acquired(CAP) 1229 (New Bag - Prov ider: Tomasz Winters RN)1259 (Stopped - Provider: Tomasz Winters RN) dexAMETHasone (DECADRON) injection 10 mg (COMPLETED) 10 mg, IV, ONE TIME ONLY, 1 dose, On 03/13/25 at 1200, Routine 1225 (Given - Provid er: Tomasz Winters RN) dilTIAZem (CARDIZEM) 5 mg/mL BOLUS injection 10 mg (COMPLETED) 10 mg, IV, ONE TIME ONLY, 1 dose, On 03/13/25 at 1015, Routine 1019 (Given - Provid er: Tomasz Winters RN) dilTIAZem (CARDIZEM) 5 mg/mL BOLUS injection 15 mg (COMPLETED) 15 mg, IV, ONE TIME ONLY, 1 dose, On 03/13/25 at 1045, Routine 1044 (Given - Provid er: Tomasz Winters RN) guaiFENesin (MUCINEX) SR tablet 600 mg 600 mg, Oral, EVERY 12 HOURS (BlD), First dose on Wed03/13/25 at 1215, Until Discontinued, Routine 1225 (Given - Provid er: Tomasz Winters RN)2100 (Due) heparin injection 3,500 Units (COMPLETED) 3,500 Units (rounded from 3,414 Units = 60 Units/kg 56.9 kg), IV, ONE TIME ONLY, 1 dose, On Wed03/13/25 at 1200, Routine 1225 (Given - Provid er: Tomasz Winters RN) iopamidoL (ISOVUE-300) 61% injection (single-use vial) 73 mL (COMPLETED) 73 mL, IV, INTRA-PROCEDURE ONCE, 1 dose, Starting on Wed03/13/25 at 1123, Until Wed03/13/25 at 1124, Routine 1124 (Contrast Given - Provider: Tonja Preciado, RT) ipratropium bromide (ATROVENT) 0.02 % nebulizer solution 0.5 mg (COMPLETED) 0.5 mg, Inhalation, ONE TIME ONLY RESPIRATORY, 1 dose, On Wed03/13/25 at 1245, Routine 1247 (Given - Provid er: Barry Mead RCP) levalbuterol (XOPENEX) 1.25 mg/3 mL inhalation solution 1.25 mg (COMPLETED) 1.25 mg, Inhalation, ONE TIME ONLY RESPIRATORY, 1 dose, On Wed03/13/25 at 1245, Routine 1247 (Given - Provid er: Barry Mead RCP) sodium chloride 0.9 % bolus solution 250 mL (COMPLETED) 250 mL, IV, ONE TIME ONLY, 1 dose, On Wed03/13/25 at 1045, at 500 mL/hr, Administer over 30 Minutes, Routine 1043 (New Bag - Prov ider: Tomasz Winters RN)1113 (Stopped - Provider: Tomasz Winters RN) sodium chloride bacteriostatic 0.9 % injection 10 mL 10 mL, IV, SEE ADMIN INSTRUCTIONS, Starting on Wed03/13/25 at 1123, Until Discontinued, Routine 1124 (Given - Provid er: Tonja Preciado, RT) sodium chloride flush injection 10 mL 10 mL, IV, EVERY 12 HOURS (BlD), First dose on Wed03/13/25 at 1015, Until Discontinued, Routine 1015 (Due)2100 (Due) sodium chloride flush injection 10 mL 10 mL, IV, SEE ADMIN INSTRUCTIONS, Starting on Wed03/13/25 at 1005, Until Discontinued, Routine Continuous Medication Order 03/11/2025 03/12/2025 03/13/2025 amiodarone in dextrose (ISO-OSM) (NEXTERONE) 360 mg/200 mL (1.8 mg/mL) IV infusion 1 mg/min (33.3333 mL/hr, rounded to 33.33 mL/hr), IV, CONTINUOUS, Starting on Wed03/13/25 at 1400, Until Wed03/13/25 at 215 1409 (New Bag - Prov ider: Tomasz Winters RN)2158 (Due: Order Ending - Provider: Tomasz Winters RN - Comment: [Order ends at this time. Document the following action when infusion is complete: Stopped]) amiodarone in dextrose (ISO-OSM) (NEXTERONE) 360 mg/200 mL (1.8 mg/mL) IV infusion 0.5 mg/min (16.6667 mL/hr, rounded to 16.67 mL/hr), IV, CONTINUOUS, Starting on Wed03/13/25 at 2000, Until Discontinued 1999 (Due) dilTIAZem (CARDIZEM) 125 mg in sodium chloride 0.9 % 125 mL infusion (CANCELED) 0-15 mg/hr (0-15 mL/hr), IV, TITRATE, Starting on Wed03/13/25 at 1130, Until Wed03/13/25 at 1346, Should this infusion be titrated? Yes, Initial infusion dose? 5 mg/hr, Titration Dose Increment? 2.5 mg/hr, Titration Interval? 30 minutes, Heart Rate Goal? Equal to or Less than 120 1140 (New Bag - Prov ider: Tomasz Winters RN)1210 (Rate Change - Provider: Tomasz Winters RN)1302 (Rate Change - Provider: Tomasz Winters RN)1400 (Rate Change - Provider: Tomasz Winters RN)1402 (Stopped - Provider: Tomasz Winters RN) heparin in 0.45% NaCl 25,000 unit/250 mL infusion 15 Units/kg/hr 56.9 kg (8.535 mL/hr, rounded to 8.5 mL/hr), IV, TITRATE, Starting on Wed03/13/25 at 1200, Until Discontinued, Indication: A Fib, Dosing by: PER PROTOCOL: Delegate to facility protocol per indication, Re-bolus within Protocol? No, titrate infusion ONLY 1226 (New Bag - Prov ider: Tomasz Winters RN) documented in this encounter Additional Health Concerns Infection Onset Date Last Indicated Resolved Time R/O COVID-19 03/13/2025 03/13/2025 03/13/2025 10:4 5 AM CDT COVID-19 03/13/2025 03/13/2025 documented as of this encounter Care Teams Conductor Orchestra Relationship Specialty Start Date End Date Diane Funk MD [address] [phone] PCP - General Family Practice 03/04/18 documented as of this encounter
--- OUTSIDE RECORDS SUMMARY | 2025-03-13 16:03 | XMS_ITS | Encounter Summary ---
Author Organization [facility] Address [address] [place] [address] Care Team Providers Care Waste Reclaimer Name Role Phone Diane Funk MD Primary Care Provider [phone] Reason for Referral * Outpatient Services (Routine) - Closed Specialty Diagnoses / Procedures Referred By Moy meneses Referred To Contact Diagnoses Pain Procedures XR FLUORO NEEDLE GUIDANCE Yumiko Grace DO [address] [place] [address] Phone: tel: fax: Referral ID Status Reason Start Date Expiration Date Visits Re quested Visits Authorized [id number] Closed 08/07/2015 09/06/2016 1 1 DELIVERY AIDE Encounter Details Date Type Department Care Team (Late st Contact Info) Description 08/07/2015 Ancillary Orders [facility] Pain Management Procedures [place] [address] [place] [address] Yumiko Grace DO [address] [address] Pain (Primary Dx) Social History Tobacco Use Types Packs/Day Years Used Date Smoking Tobacco: Never Smokeless Tobacco: Never Alcohol Use Standard Drinks/Week Comments Not Asked 0 (1 standard drink = 0.6 oz pur e alcohol) Comments No Sex and Gender Information Value Date Recorded Sex Assigned at Not on file Legal Sex Female 1:35 PM CDT Gender Identity Not on file Sexual Orientation Not on file documented as of this encounter Plan of Treatment Not on file documented as of this encounter Results * XR FLUORO NEEDLE GUIDANCE (08/07/2015 10:44 AM TRAY DELIVERY AIDE) Narrative Jus Renteria, RT - 08/07/2015 10:44 AM TRAY DELIVERY AIDE Order information only. Exam was auto-finalized. Yumiko Grace DO DIAGNOSTIC IMAGING ORDERABLE S Final Result documented in this encounter Visit Diagnoses Diagnosis Pain- Primary Generalized pain Pain Generalized pain documented in this encounter Additional Health Concerns Infection Onset Date Last Indicated Resolved Time R/O COVID-19 07/24/2020 07/24/2020 07/26/2020 12:3 1 AM TRAY DELIVERY AIDE COVID-19 07/24/2020 07/24/2020 08/23/2020 8:08 PM TRAY DELIVERY AIDE documented as of this encounter Care Teams Waste Reclaimer Relationship Specialty Start Date End Date Diane Funk MD [address] [phone] PCP - General Family Practice 03/04/18 documented as of this encounter
--- OUTSIDE RECORDS SUMMARY | 2025-03-13 16:03 | XMS_ITS | Encounter Summary ---
Author Organization [facility] Address [address] [place] [address] Care Team Providers Care Metal Furniture Assembler Name Role Phone Diane Funk MD Primary Care Provider [phone] Reason for Referral * Outpatient Services (Routine) - Closed Specialty Diagnoses / Procedures Referred By Contac t Referred To Contact Radiology Diagnoses Osteoporosis Osteopenia Procedures XR DEXA BONE DENSITY AXIAL 1 OR MORE SITES Angel Armendariz MD Phone: tel: fax: [facility] [address] [facility] [address] [place] [address] Phone: tel: fax: Referral ID Status Reason Start Date Expiration Date V isits Requested Visits Authorized [id number] Closed [facility] CTS to Schedule (SGF) 11/19/2015 12/19/2016 1 1 Encounter Details Date Type Department Care Team (Late st Contact Info) Description 11/19/2015 Ancillary Orders [facility] Centralized Scheduling [address] [facility] [address] [place] [address] Angel Armendariz MD [address] [place] [phone] Osteoporosis (Primary Dx); Osteopenia Social History Tobacco Use Types Packs/Day Years [...] as of this encounter Results * XR DEXA BONE DENSITY AXIAL 1 OR MORE SITES (11/19/2015 3:21 PM CDT) Anatomical Region Laterality Modality Digital Radiogra phy 11/19/2015 3:21 PM CDT Impressions 11/19/2015 3:55 PM CDT IMPRESSION: 1. Osteoporosis. Fracture risk is high. [id number] Narrative 11/19/2015 3:55 PM CDT Exam: XR DEXA BONE DENSITY AXIAL 1 OR MORE SITES Date/Time of Exam: 11/19/2015 3:21 PM Reason For Exam: Osteoporosis,Osteopenia. Findings: Bone mineral density is 0.774 g/sq cm with a T-score of -2.5 and a Z-score of 0.2. By World Health Organization classification bones demonstrate osteoporosis. Angel Armendariz MD DIAGNOSTIC IMAGING ORDERABLE S Final Result documented in this encounter Visit Diagnoses Diagnosis Osteoporosis- Primary Osteoporosis, unspecified Osteopenia Disorder of bone and cartilage, unspecified Osteoporosis Osteoporosis, unspecified Osteopenia Disorder of bone and cartilage, unspecified documented in this encounter Additional Health Concerns Infection Onset Date Last Indicated Resolved Time R/O COVID-19 07/24/2020 07/24/2020 07/26/2020 12:3 1 AM SHEET CATCHER COVID-19 07/24/2020 07/24/2020 08/23/2020 8:08 PM SHEET CATCHER documented as of this encounter Care Teams Metal Furniture Assembler Relationship Specialty Start Date End Date Diane Funk MD [address] [phone] PCP - General Family Practice 03/04/18 documented as of this encounter
--- OUTSIDE RECORDS SUMMARY | 2025-03-13 16:03 | XMS_ITS | Clinical Summary ---
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 Tramadol Nausea and Vomiting Low 03/05/2023 Medications multivitamin (DAILY-JONNY) tablet Take 1 Tablet by mouth daily. Active acetaminophen (TYLENOL) 500 mg tablet Take 2 Tablets (1,000 mg) by mouth every 8 hours as needed for Pain. 03/02/20 23 Active lisinopriL (PRINIVIL) 20 mg tabletIndication s:Benign hypertension Take 1 Tablet (20 mg) by mouth 2 times daily. 200 Tablet 2 10/18/19 25 Active methylPREDNISolo ne (MEDROL DOSPACK) 4 mg Tablets, Dose PackIndications: Spinal stenosis, unspecified spinal region,Acute left-sided thoracic back pain Take as instructions advise. 21 Tablet 11/03/19 25 Active amLODIPine (NORVASC) 5 mg tabletIndication s:Benign hypertension Take 1 Tablet (5 mg) by mouth daily. 100 Tablet 3 11/29/19 25 Active alendronate (FOSAMAX) 70 mg tablet TAKE ONE TABLET BY MOUTH EVERY 7 DAYS. EMPTY STOMACH BEFORE OTHER MEDS,WITH 8 OUNCES OF WATER, STAY UPRIGHT 30 MINUTES 12 Tablet 01/10/20 25 Active atenoloL (TENORMIN) 50 mg tablet Take 1 tablet by mouth twice daily 80 Tablet 02/02/20 25 Active levothyroxine 75 mcg tablet TAKE 1 TABLET(75 MCG) BY MOUTH DAILY IN THE MORNING 100 Tablet 2 02/16/20 25 Active gabapentin (NEURONTIN) 300 mg capsuleIndicatio ns:Spinal stenosis of lumbar region without neurogenic claudication TAKE ONE CAPSULE BY MOUTH EVERY MORNING, 1 AT NOON, AND 2 EVERY NIGHT AT BEDTIME 400 Capsule 1 03/09/20 25 Active levothyroxine 75 mcg tablet TAKE 1 TABLET(75 MCG) BY MOUTH DAILY IN THE MORNING 100 Tablet 2 09/03/19 25 025 Discontin ued(Reord er) gabapentin (NEURONTIN) 300 mg capsuleIndicatio ns:Spinal stenosis of lumbar region without neurogenic claudication TAKE ONE CAPSULE BY MOUTH EVERY MORNING, 1 AT NOON, AND 2 EVERY NIGHT AT BEDTIME 400 Capsule 2 10/18/19 25 025 Discontin ued(Reord er) Active Problems Problem Noted Date Diagnosed Date New onset atrial fibrillation 03/13/2025 Multifocal pneumonia 03/13/2025 COVID-19 virus detected 03/13/2025 Hx of compression fracture of spine 01/03/2024 Impaired mobility and ADLs 02/22/2023 Femur fracture, right 02/18/2023 Hyponatremia, mild 02/18/2023 Sequelae of Closed pertrocha nteric fracture of proximal femur, right 02/18/2023 Overview (02/18/2023): Added automatically from request for surgery [id number] Mixed hyperlipidemia 07/01/2020 S/P total knee arthroplasty, right 12/08/2018 CKD (chronic kidney disease) stage 3, GFR 30-59 ml/min 08/05/2016 Left-sided thoracic back pain 07/08/2015 Insomnia 03/25/2015 Hypothyroidism (acquired) 03/22/2015 Benign hypertension 03/22/2015 Spinal stenosis 03/22/2015 Allergic rhinitis due to pollen 03/22/2015 History of breast cancer 03/22/2015 Encounters Date Type Department Care Team Description 03/13/2025 9:59 AM CDT - 03/13/2025 3:14 PM CDT Emergency [facility] Emergency Medicine [address] [place] [phone] Johann Montoya MD New onset atrial fibrillation (CMS/HCC) (Primary Dx); COVID-19 virus detected; Multifocal pneumonia Discharge Disposition: Acute Care Hospital 03/13/2025 9:00 AM CDT Office Visit [address] [phone] Narcisa Avalos, CLARA Acute cough (Primary Dx); Tachycardia; Atrial fibrillation with RVR (CMS/HCC); Hypoxia; COVID-19 03/13/2025 Travel 03/08/[address] [place] [address] Diane Funk MD Spinal stenosis of lumbar region without neurogenic claudication; Anxiety state 02/15/[address] [phone] Diane Funk MD 02/06/2025 2:56 PM CDT - 02/06/2025 11:59 PM CDT Hospital Encounter [facility] Pain Management Procedures [address] [place] [phone] Scotty Smart FNP Discharge Disposition: Home or Self Care 02/06/2025 2:32 PM CDT - 02/06/2025 11:59 PM CDT Hospital Encounter [facility] Pain Management Procedures [address] [place] [phone] Yumiko Grace DO Discharge Disposition: Home or Self Care 01/31/[address] [phone] Diane Funk MD 01/23/2025 Results Follow-Up [address] [phone] Diane Funk MD MEDICATION COMPLIANCE DRUG SCREEN 01/18/2025 8:45 AM CDT Procedure visit [address] [place] [address] 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 01/18/2025 Orders Only [facility] [address] [phone] Diane Funk MD Other penitentiary (current) drug therapy (Primary Dx) 01/18/2025 Telephone [facility] [address] [place] [phone] Diane Funk MD Medication Refill 01/15/2025 Refill [facility] [address] [phone] Diane Funk MD Anxiety state 01/10/2025 Orders Only [facility] Pain Management [address] [place] [phone] Scotty Smart FNP Lumbar radiculopathy (Primary Dx) 01/09/2025 Results Follow-Up [facility] Pain Management Procedures [address] [facility] [place] [phone] Scotty Smart FNP MRI LUMBAR WO CONTRAST 01/08/[address] [phone] Diane Funk MD Anxiety state 01/07/[address] [phone] Diane Funk MD 01/03/2025 2:04 PM CDT - 01/03/2025 11:59 PM CDT Hospital Encounter [facility] [address] [phone] Brandee Blackwell, RECRUITING MANAGER Discharge Disposition: Home or Self Care 12/13/2024 8:40 AM CDT Office Visit [facility] Pain [facility] [address] [place] [phone] Brandee Blackwell, RECRUITING MANAGER Lumbar radiculopathy (Primary Dx); Hx of compression fracture of spine; Stage 3 chronic kidney disease, unspecified whether stage 3a or 3b CKD (CMS/HCC) from Last 3 Months Immunizations Immunization Administration Dates Next Due (PFIZER)(12 YR UP) COVID-19 VACCINE - EMERGENCY USE AUTHORIZATION, MRNA, [id number](PF) 30 MCG/0.3 ML IM SUSP 05/30/2021,09/11/2020,08/21/2020 (PNEUMOVAX 23)(50 YRS UP) PN EUMOCOCCAL POLYSACCHARIDE (PPV23) 0.5 ML, IM 05/06/2019 (PREVNAR 13)(6 WKS UP) PNEUM OCOCCAL CONJUGATE (PCV13) 0.5 ML, IM 06/27/2015 INFLUENZA VACCINE HIGH DOSE QUADRIVALENT 65 YR UP PF IM 07/16/2021,05/31/2020,05/02/2018,06/04,05/27/2016,06/27/2015 Influenza Seasonal Unspecifi ed Formulation IM 05/16/2023,05/16/2022,07/16/2021,06/16,06/04/2017 Influenza Vaccine High Dose 65+ Yrs IM 0 05/02/2018,06/04/2017,05/27/2016,06/27,06/11/2014 PNEUMOVAX (PPSV23) pneumococ nicole polysaccharide 23-valent Vaccine 05/06/2019 Family History Medical History Relation Name Comments Breast Cancer Maternal Aunt Breast Cancer Mother [place] Cuellar d at 44 Relation Name Status Comments Maternal Aunt Mother [place] Cuellar Social History Tobacco Use Types Packs/Day Years Used Date Smoking Tobacco: Never Smokeless Tobacco: Never Tobacco Cessation:Counseling Given: Not Answered Alcohol Use Standard Drinks/Week Comments Not Currently 0 (1 standard drink = 0.6 oz pur e alcohol) Comments No Sex and Gender Information Value Date Recorded Sex Assigned at Not on file 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 Gender Identity Not on file Sexual Orientation Not on file Last Filed Vital Signs Vital Sign Reading [...] Mass Index 22.21 03/13/2025 9:58 AM CDT Plan of Treatment Upcoming Encounters Date Type Department Care Team (Late st Contact Info) Description 03/22/2025 12:40 PM CDT Office Visit [facility] Pain [facility] [address] [place] [address] Brandee Blackwell FNP [address] [place] [address] 05/31/2025 2:20 PM CDT Office Visit [facility] Family Medicine [address] [phone] Diane Funk MD [address] [phone] Health Maintenance Due Date Last Done Comments DTAP/TDAP/TD VACCINES (1 - Tdap) 1955 ZOSTER VACCINE (1 of 2) 1986 RSV VACCINE (60+ or ) (1 - 1-dose 75+ series) 2011 COVID-19 Vaccine ( - 2023-2 5 season) 2024 05/30/2021, 09/11/2020, 08/21/2020 Traditional Medicare (ACO) A nnual Wellness Visit 11/08/2024 11/08/2023, 10/19/2022 INFLUENZA VACCINE (#1) 2025 , 05/16/2023, 05/16/2022, Additional history exists OSTEOPOROSIS SCREENING 10/27/2027 3, 09/28/2018, 09/28/2018, Additional history exists PNEUMOCOCCAL VACCINE 50+ YEARS Completed 0 05/06/2019, 05/06/2019, 06/27/2015 Medical Devices Implanted Type Area Hydraulic Rock Drill Operator Device Identifier Shelf Expiration Date Model / Serial / Lot Nail Intertan [id number] - [id number] Implanted:Qty: 1 on 02/20/2023 by Niles Chacon MD at [facility] Nail Right: Hip [employer] [id number] 02/11/2032 [id number] / / [id number] Screw Lag/Comp 90/85 [id number] - [id number] Implanted:Qty: 1 on 02/20/2023 by Niles Chacon MD at [facility] Screw Right: Hip [employer] [id number] 04/01/2032 [id number] / / [id number] Screw Trgn Lp 5.0x32.5mm [id number] - [id number] Implanted:Qty: 1 on 02/20/2023 by Niles Chacon MD at [facility] Screw Right: Hip [employer] [id number] 11/10/2032 [id number] / / [id number] Procedures Procedure Name Priority Date/Time Associated Diagnosis [...] SAT ABOVE Stat 03/13/2025 10:06 AM CDT MAGNESIUM LEVEL Stat 03/13/2025 10:00 AM CDT C-REACTIVE PROTEIN Stat 03/13/2025 10 :00 AM CDT LACTIC ACID Stat 03/13/2025 10:00 AM CDT BRAIN NATRIURETIC PEPTIDE, BNP OR PROBNP Stat 03/13/2025 10:00 AM CDT SEDIMENTATION RATE Stat 03/13/2025 10 :00 AM CDT D-DIMER Stat 03/13/2025 10:00 AM CDT PTT Stat 03/13/2025 10:00 AM CDT PROTIME-INR Stat 03/13/2025 10:00 AM CDT EXTRA TUBE (BLUE) Stat 03/13/2025 10: 00 AM CDT EXTRA TUBE Stat 03/13/2025 10:00 AM CDT COMPREHENSIVE METABOLIC PANEL Stat 03/13/2025 10:00 AM CDT CBC WITH DIFFERENTIAL Stat 03/13/2025 10:00 AM CDT TROPONIN BASELINE, 5TH GEN Stat 03/13/2025 10:00 AM CDT EKG 12-LEAD Routine 03/13/2025 Tachycardia XR FLUORO NEEDLE GUIDANCE SPINE Routine 02/06/2025 3:20 PM CDT MEDICATION COMPLIANCE DRUG SCREEN Routine 01/18/2025 8:43 AM CDT Other penitentiary (current) drug therapy MRI LUMBAR WO CONTRAST Routine 01/03/2025 3:00 PM CDT Lumbar radiculopathy XR DEXA BONE DENSITY AXIAL 1 OR MORE SITES Routine 10/26/2022 2:20 PM CDT Asymptomatic menopause from Last 3 Months or Most Recently Relevant to Health Maintenance Results * URINALYSIS MICROSCOPY ONLY (03/13/2025 1:46 PM CDT) WBC UA 0-2 0 - 2 /hpf 03/13/2025 2:11 PM CDT [facility] RBC UA 0-2 0 - 2 /hpf 03/13/2025 2:11 PM CDT [facility] BACTERIA UA Negative Negative /hpf 03/13/2025 2:11 PM CDT [facility] EPITHELIAL CELLS, URINE 0-5 0 - 5 /hpf 03/13/2025 2:11 PM CDT [facility] Urine URINE SPECIMEN OBTAINED BY CLEAN CATCH PROCEDURE / Unknown Collection / Unknown 03/13/2025 1:46 PM CDT 03/13/2025 1:58 PM CDT Johann Montoya MD URINE ORDERABLES Final [id number] [address] [place] [address] * (ABNORMAL) URINALYSIS WITH REFLEX MICROSCOPIC (03/13/2025 1:46 PM CDT) COLOR UA Yellow Pale to Dark Yellow 03/13/2025 2:11 PM CDT [facility] CLARITY UA Clear Clear 03/13/2025 2:11 PM CDT [facility] SPECIFIC GRAVITY UA 1.010 1.003 - 1.035 03/13/2025 2:11 PM CDT [facility] PH UA 6.0 5.0 - 8.0 03/13/2025 2:11 PM CDT [facility] LEUKOCYTE ESTERASE UA Negative Negative 03/13/2025 2:11 PM CDT [facility] NITRITE UA Negative Negative 03/13/2025 2:11 PM CDT [facility] PROTEIN UA 2+(A) Negative 03/13/2025 2:11 PM CDT [facility] GLUCOSE UA Negative Negative 03/13/2025 2:11 PM CDT [facility] KETONES UA 1+(A) Negative 03/13/2025 2:11 PM CDT [facility] UROBILINOGEN UA 0.2 <2.0 mg/dL 2:11 PM CDT [facility] BILIRUBIN UA Negative Negative 03/13/2025 2:11 PM CDT [facility] BLOOD UA Trace(A) Negative 03/13/2025 2:11 PM CDT [facility] Urine URINE SPECIMEN OBTAINED BY CLEAN CATCH PROCEDURE / Unknown Collection / Unknown 03/13/2025 1:46 PM CDT 03/13/2025 1:58 PM CDT Johnan Montoya MD URINE ORDERABLES Final Result [facility] CLIA # [id number] [address] [place] [address] * (ABNORMAL) TROPONIN 2 HR, 5TH GEN (03/13/2025 12:15 PM CDT) TROPONIN T, 2 HR 5TH GEN 91(H) <=10 ng/L 03/13/2025 12:43 PM CDT [facility] DELTA 2HR TROPONIN T % -12 See Interp. % 03/13/2025 12:43 PM CDT [facility] Blood BLOOD SPECIMEN / Unknown Collection / Unknown 03/13/2025 12:15 PM CDT 03/13/2025 12:28 PM CDT Narrative [facility] - 03/13/2025 12:43 PM CDT Troponin elevated. Delta not changing. us Johann Montoya MD CHEMISTRY ORDERABLES Final Resu lt [facility] # [id number] [address] [place] [address] * CTA CHEST W AND/OR WO CONTRAST [...] suggested. 3. Small bilateral pleural effusions. Johann Montoya MD CT ORDERABLES Final Result * CT [...] sinuses may reflect active sinus disease. Johann Montoya MD CT ORDERABLES Final Result * (ABNORMAL) COVID-19 ANTIGEN (03/13/2025 10:23 AM CDT) COVID-19 ANTIGEN POSITIVE( A) Presumptive Negative 03/13/2025 10:45 AM CDT [facility] Upper Respiratory ANTERIOR NARES SWAB / Unknown Collection / Unknown 03/13/2025 10:23 AM CDT 03/13/2025 10:29 AM CDT Narrative [facility] - 03/13/2025 10:45 AM CDT Domitila SARS antigen test has been authorized by FDA under an emergency use authorization (EUA) and has been authorized only for the detection of proteins from SARS-CoV-2 and influenza, not for any other viruses or pathogens. Domitila SARS Antigen ANTON is intended for the simultaneous qualitative detection and differentiation of nucleocapsid protein antigen from SARS-CoV-2 directly from nasopharyngeal (BRANCH MANAGER TRAINEE) and nasal (NS) swab specimens collected from [...] least 48 hours between tests. us Johann Montoya MD MICROBIOLOGY - GENERAL ORDERABL ES Final Result [facility] # [id number] [address] [place] [address] * EKG 12 lead (03/13/2025 10:18 AM CDT) Only the most recent of2 resultswithin the time period is included. Narrative Johann Montoya MD - 03/13/2025 10:18 AM CDT Johann Montoya MD 03/13/2025 2:23 PM EKG 12 lead Date/Time: 03/13/2025 10:18 AM Performed by: Johann Montoya MD Authorized by: Johann Montoya MD ECG interpreted by ED Physician in the absence of a rescue boat operator: yes Rate: ECG rate: 151 ECG rate assessment: tachycardic Rhythm: Rhythm Origin: atrial Rhythm morphology: fibrillation Rhythm morphology comment: With RVR QRSTT: QRSTT changes: Yes Comments: T wave inversion in lead III, lead V2 and lead aVF. us Johann Montoya MD ECG ORDERABLES Final Result * EXTRA TUBE (BLUE) (03/13/2025 10:00 AM CDT) Blood BLOOD SPECIMEN / Unknown Collection / Unknown 03/13/2025 10:00 AM CDT 03/13/2025 10:11 AM CDT us Johann Montoya MD HEMATOLOGY ORDERABLES Final Res ult Performing Organization Address City/[facility]/ZIP Co de Phone Number [facility] # [id number] [address] [place] [phone] * (ABNORMAL) TROPONIN BASELINE, 5TH GEN (03/13/2025 10:00 AM CDT) TROPONIN T, BASELINE 5TH GEN 103(HH) <=10 ng/L 03/13/2025 10:33 AM CDT [facility] Blood BLOOD SPECIMEN / Unknown Collection / Unknown 03/13/2025 10:00 AM CDT 03/13/2025 10:11 AM CDT Narrative [facility] - 03/13/2025 10:33 AM CDT Troponin elevated. us Johann Montoya MD CHEMISTRY ORDERABLES Final Resu lt Performing Organization Address City/[facility]/ZIP Co de Phone Number [facility] CLIA # [id number] [address] [place] [address] * LACTIC ACID (03/13/2025 10:00 AM CDT) LACTIC ACID 1.8 <=2.0 mmol/L 03/13/2025 10:32 AM CDT [facility] Blood BLOOD SPECIMEN / Unknown Collection / Unknown 03/13/2025 10:00 AM CDT 03/13/2025 10:17 AM CDT us Johann Montoya MD CHEMISTRY ORDERABLES Final Resu lt [facility] CLIA # [id number] [address] [place] [address] * (ABNORMAL) CBC WITH DIFFERENTIAL (03/13/2025 10:00 AM CDT) WBC 14.3(H) 4.0 - 10.0 K/uL 03/13/2025 10:17 AM [facility] RBC 4.18 3.93 - 5.22 M/uL 03/13/2025 10:17 AM [facility] HEMOGLOBIN 13.0 11.2 - 15.7 g/dL 03/13/2025 10:17 AM [facility] HEMATOCRIT 38.7 34.1 - 44.9 % 03/13/2025 10:17 AM [facility] MCV 92.6 79.4 - 94.8 fL 03/13/2025 10:17 AM [facility] MCH 31.1 25.6 - 32.2 pg 03/13/2025 10:17 AM [facility] MCHC 33.6 32.2 - 35.5 g/dL 03/13/2025 10:17 AM [facility] RDW 13.2 11.0 - 14.5 % 03/13/2025 10:17 AM [facility] RDW-STDEV 44.8 36.9 - 56.9 fL 03/13/2025 10:17 AM [facility] PLATELETS 218 163 - 337 K/uL 03/13/2025 10:17 AM [facility] MPV 11.1 10.0 - 14.8 fL 03/13/2025 10:17 AM [facility] NEUTROPHILS 88(H) 34 - 71 % 03/13/2025 10:17 AM [facility] LYMPHOCYTES 5(L) 19 - 52 % 03/13/2025 10:17 AM [facility] MONOCYTES 6 5 - 13 % 03/13/2025 10:17 AM [facility] EOSINOPHILS 0(L) 1 - 6 % 03/13/2025 10:17 AM [facility] BASOPHILS 0 0 - 1 % 03/13/2025 10:17 AM [facility] IMMATURE GRANULOCYTES 1 % 03/13/2025 10:17 AM [facility] NEUTROPHIL ABSOLUTE 12.64(H) 1.56 - 6.13 K/uL 03/13/2025 10:17 AM [facility] LYMPHOCYTE ABSOLUTE 0.65(L) 1.20 - 3.40 K/uL 03/13/2025 10:17 AM [facility] MONOCYTE ABSOLUTE 0.92(H) 0.24 - 0.36 K/uL 03/13/2025 10:17 AM [facility] EOSINOPHIL ABSOLUTE 0.01(L) 0.04 - 0.36 K/uL 03/13/2025 10:17 AM [facility] BASOPHILS ABSOLUTE 0.03 0.01 - 0.08 K/uL 03/13/2025 10:17 AM [facility] IMMATURE GRANULOCYTES ABSOLUTE 0.07 K/uL 03/13/2025 10:17 AM [facility] Blood BLOOD SPECIMEN / Unknown Collection / Unknown 03/13/2025 10:00 AM CDT 03/13/2025 10:09 AM CDT us Johann Montoya MD HEMATOLOGY ORDERABLES Final Res ult [facility] # [id number] [address] [place] [address] * PTT (03/13/2025 10:00 AM CDT) PTT 27.4 25.1 - 35.4 seconds 03/13/2025 10:26 AM CDT [facility] Blood BLOOD SPECIMEN / Unknown Collection / Unknown 03/13/2025 10:00 AM CDT 03/13/2025 10:14 AM CDT Johann Montoya MD HEMATOLOGY ORDERABLES Final Res ult Performing Organization Address [facility] Co de Phone Number [facility] CLIA # [id number] [address] [place] [address] * SEDIMENTATION RATE (03/13/2025 10:00 AM CDT) ESR (SEDIMENTATION RATE) 27 0 - 30 mm/Hr 03/13/2025 10:34 AM CDT [facility] Blood BLOOD SPECIMEN / Unknown Collection / Unknown 03/13/2025 10:00 AM CDT 03/13/2025 10:09 AM CDT Narrative [facility] - 03/13/2025 10:34 AM CDT Tube Lot: #[id number] Exp Date: 08/15/2026 QC1 LOT [id number] EXP.08/20/2025 QC2 LOT [id number] EXP.08/20/2025 Johann Montoya MD HEMATOLOGY ORDERABLES Final Res ult Performing Organization Address City/[facility]/ZIP Co de Phone Number [facility] CLIA # [id number] [address] [place] [address] * PROTIME-INR (03/13/2025 10:00 AM CDT) PROTIME 12.9 12.1 - 14.3 Seconds 03/13/2025 10:26 AM CDT [facility] INR 1.0 0.9 - 1.1 03/13/2025 10:26 AM CDT [facility] Blood BLOOD SPECIMEN / Unknown Collection / Unknown 03/13/2025 10:00 AM CDT 03/13/2025 10:14 AM CDT us Johann Montoya MD HEMATOLOGY ORDERABLES Final Res ult Performing Organization Address City/[facility]/ZIP Co de Phone Number [facility] CLIA # [id number] [address] [place] [address] * (ABNORMAL) D-DIMER (03/13/2025 10:00 AM CDT) D-DIMER QUANT 0.89(H) <0.50 ug/mL FEU 03/13/2025 10:29 AM CDT [facility] Blood BLOOD SPECIMEN / Unknown Collection / Unknown 03/13/2025 10:00 AM CDT 03/13/2025 10:14 AM CDT Narrative [facility] - 03/13/2025 10:29 AM CDT D-Dimer assay [...] 71-80 years: 0.71-0.80 ug/mL FEU us Johann Montoya MD HEMATOLOGY ORDERABLES Final Res ult [facility] CLIA # [id number] [address] [place] [address] * (ABNORMAL) C-REACTIVE PROTEIN (03/13/2025 10:00 AM CDT) CRP 243.0(H) <5.0 mg/L 03/13/2025 10:34 AM CDT [facility] Blood BLOOD SPECIMEN / Unknown Collection / Unknown 03/13/2025 10:00 AM CDT 03/13/2025 10:11 AM CDT us Johann Montoya MD CHEMISTRY ORDERABLES Final Resu lt Performing Organization Address [facility] Co de Phone Number [facility] CLIA # [id number] [address] [place] [address] * (ABNORMAL) BRAIN NATRIURETIC PEPTIDE, BNP OR PROBNP (03/13/2025 10:00 AM CDT) PROBNP, N TERMINAL 13,504(H) 0 - 450 pg/mL 03/13/2025 10:34 AM CDT [facility] Comment: INTERPRETIVE COMMENT based on diagnosis: Diagnostic [...] CDT 03/13/2025 10:11 AM CDT us Johann Montoya MD CHEMISTRY ORDERABLES Final Resu lt [facility] CLIA # [id number] [address] [place] [address] * MAGNESIUM LEVEL (03/13/2025 10:00 AM CDT) MAGNESIUM 2.0 1.6 - 2.4 mg/dL 03/13/2025 10:34 AM CDT [facility] Blood BLOOD SPECIMEN / Unknown Collection / Unknown 03/13/2025 10:00 AM CDT 03/13/2025 10:11 AM CDT us Johann Montoya MD CHEMISTRY ORDERABLES Final Resu lt [facility] CLIA # [id number] [address] [place] [address] * (ABNORMAL) COMPREHENSIVE METABOLIC PANEL (03/13/2025 10:00 AM CDT) SODIUM 121(L) 136 - 145 mmol/L 03/13/2025 10:34 AM [facility] POTASSIUM 4.7 3.5 - 5.1 mmol/L 03/13/2025 10:34 AM [facility] CHLORIDE 84(L) 98 - 107 mmol/L 03/13/2025 10:34 AM [facility] CO2 22 22 - 29 mmol/L 03/13/2025 10:34 AM [facility] CALCIUM 10.4(H) 8.8 - 10.2 mg/dL 03/13/2025 10:34 AM [facility] BUN 16 8 - 23 mg/dL 03/13/2025 10:34 AM [facility] CREATININE 0.89 0.51 - 0.95 mg/dL 03/13/2025 10:34 AM [facility] Comment:The GFR result is no t clinically significant on patients <18 or >70 years of age. GLUCOSE 115(H) 74 - 99 mg/dL 03/13/2025 10:34 AM [facility] TOTAL PROTEIN 7.3 6.6 - 8.7 g/dL 03/13/2025 10:34 AM [facility] ALBUMIN 3.9 3.5 - 5.2 g/dL 03/13/2025 10:34 AM [facility] BILIRUBIN TOTAL 0.8 0.0 - 1.2 mg/dL 03/13/2025 10:34 AM [facility] ALKALINE PHOSPHATASE 125(H) 35 - 104 U/L 03/13/2025 10:34 AM [facility] AST 107(H) 0 - 35 U/L 03/13/2025 10:34 AM CDT [facility] ALT 92(H) 0 - 35 U/L 03/13/2025 10:34 AM CDT [facility] GFR >60 mL/min/1.7 3 sq meter 03/13/2025 10:34 AM CDT [facility] Comment:eGFR calculated with 2020 CKD-EPI equation. Vegetarian diet, extremely high or low muscle mass, and may affect results. Cystatin C with Glomerular Filtration Rate is a suitable alternative for these patients. ANION GAP 15 5 - 20 mmol/L 03/13/2025 10:34 AM CDT [facility] Blood BLOOD SPECIMEN / Unknown Collection / Unknown 03/13/2025 10:00 AM CDT 03/13/2025 10:11 AM CDT Johann Montoya MD CHEMISTRY ORDERABLES Final Resu lt [facility] CLIA # [id number] [address] [place] [id number] * XR FLUORO NEEDLE GUIDANCE SPINE (02/06/2025 3:20 PM CDT) Narrative 02/06/2025 3:24 PM CDT Order information only. Exam was auto-finalized. [facility] ORDERABLE S Final Result * (ABNORMAL) MEDICATION COMPLIANCE DRUG SCREEN (01/18/2025 8:43 AM CDT) Summary [facility] Comment: Prescribed Prescribed Not Prescribed Consistent Inconsistent Inconsistent Alphahydroxyalprazolam Ethyl Glucuronide (ETG Ethyl Sulfate (ETS) Gabapentin BUPRENORPHINE (URINE) NEGATIVE <5 ng/mL [facility] [employer] Fentanyl NEGATIVE <0.5 ng/mL [employer] Propoxyphene, Urine NEGATIVE <300 ng/mL [facility] MDA (Ecstasy Mtb), Urine NEGATIVE <200 ng/mL [facility] MDMA (Ecstasy), Urine NEGATIVE <200 ng/mL [facility] MDMA Comments [facility] Comment:See LDT Notes Meprobamate, Urine NEGATIVE <1000 ng/mL [facility] Carisoprodol Comments [facility] Comment:See LDT Notes Tapentadol, Urine NEGATIVE <50 ng/mL [facility] Nortapentadol, Urine NEGATIVE <50 ng/mL [facility] Tapentadol Comments [facility] Comment:See LDT Notes O-Desmethyltramadol , Urine NEGATIVE <100 ng/mL [facility] Tramadol, Urine NEGATIVE <100 ng/mL [facility] Tramadol Comments [facility] Comment:See LDT Notes Gabapentin, Urine >783489(H) <1000 ng/mL [facility] medMATCH Gabapentin, Urine INCONSISTENT (A) [facility] Gabapentin Comments [facility] Comment:See Gabapentin Notes , LDT Notes Meperidine, Urine NEGATIVE <100 ng/mL [facility] Normeperidine, Urine NEGATIVE <100 ng/mL [facility] Meperidine Comments [facility] Comment:See LDT Notes PREGABALIN, QUANT URINE NEGATIVE <1000 ng/mL [facility] Pregabalin Comments [facility] Comment:See LDT Notes Alcohol Metabolites, Urine POSITIVE(A) <500 ng/mL [facility] Alcohol, Ethyl, Urine 1959(H) <500 ng/mL [facility] medMATCH ETG, Urine INCONSISTENT (A) [facility] Ethyl Sulfate (ETS), Urine 983(H) <100 ng/mL [facility] medMATCH ETS, Urine INCONSISTENT (A) [facility] Alcohol Metab Comments [facility] Comment:See Alcohol Metab No megan, LDT Notes AMPHETAMINES (URINE) NEGATIVE <500 ng/mL [facility] BARBITURATES (URINE) NEGATIVE <300 ng/mL [facility] BENZODIAZEPINES (URINE) POSITIVE(A) <100 ng/mL [facility] Alpha-hydroxyalpraz olam, Urine 106(H) <25 ng/mL [facility] medMATCH aOH alprazolam, Urine INCONSISTENT (A) [facility] ALPHA-HYDROXYMIDAZO GAMEZ QUANT, URINE NEGATIVE <50 ng/mL [facility] Alpha-Hydroxytriazo gamez, Urine NEGATIVE <50 ng/mL [facility] Aminoclonazepam, Urine NEGATIVE <25 ng/mL [facility] Hydroxyethylfluraze luisito, Urine NEGATIVE <50 ng/mL [facility] Lorazepam, Urine NEGATIVE <50 ng/mL [facility] NORDIAZEPAM QUANT, URINE NEGATIVE <50 ng/mL [facility] Oxazepam, Urine NEGATIVE <50 ng/mL [facility] Temazepam, Urine NEGATIVE <50 ng/mL [facility] BENZODIAZEPINES, COMMENT [facility] Comment:See Benzodiazepines Notes, LDT Notes COCAINE & METABOLITE (URINE) NEGATIVE <150 ng/mL [facility] 6 ACETYLMORPHINE, URINE NEGATIVE <10 ng/mL [facility] CANNABINOIDS QUAL, URINE NEGATIVE <20 ng/mL [facility] Methadone Metabolite, Urine NEGATIVE <100 ng/mL [facility] OPIATE CLASS (URINE) NEGATIVE <100 ng/mL [facility] OXYCODONE CLASS (URINE) NEGATIVE <100 ng/mL [facility] PHENCYCLIDINE, URINE NEGATIVE <25 ng/mL [facility] Creatinine, Urine 120.6 > or = 20.0 mg/dL [facility] PH 5.8 4.5 - 9.0 [facility] OXIDANT, URINE NEGATIVE <200 mcg/mL [facility] ZOLPIDEM, URINE NEGATIVE <5 ng/mL [facility] Zolipidem Metabolite, Urine NEGATIVE <5 ng/mL [facility] Zolpidem Comments [facility] Comment:See LDT Notes COMMENT TOXICOLOGY [facility] Comment: This drug testing is for medical treatment only. Analysis was performed as non-forensic testing and these results should be used only by healthcare providers to render diagnosis or treatment, or to monitor progress of medical conditions. Alcohol Metab Notes: Ethylglucuronide, Ethyl sulfate detected is consistent with exposure to alcohol. Benzodiazepines Notes: aOH Alprazolam detected is consistent with the use of the drug Alprazolam. Gabapentin Notes: Gabapentin detected is consistent with the use of the drug Gabapentin. LDT Notes: Confirmation tests were developed and their analytical performance characteristics have been determined by [employer]. It has not been cleared or approved by the FDA. This assay has been validated pursuant to the CLIA regulations and is used for clinical purposes. medMATCH(R) enables providers to identify if drug use is consistent or inconsistent with a corresponding prescribed medication(s) list. Healthcare Providers needing Interpretation assistance, please contact us at [phone] ( ) M-F, 8am to 10pm EST Test Performed at: [facility] [address] [place] [address] Sergey PEÑA Urine URINE SPECIMEN OBTAINED BY CLEAN CATCH PROCEDURE / Unknown 01/18/2025 8:43 AM CDT 01/19/2025 2:59 AM CDT us Diane Funk MD URINE ORDERABLES Final Resu lt [facility] [phone] [facility] [address] [place] [address] * MRI LUMBAR WO CONTRAST (01/03/2025 3:00 PM CDT) Anatomical Region Laterality Modality Spine Magnetic Resonan ce 01/03/2025 3:28 PM CDT Impressions 01/03/2025 3:36 PM CDT IMPRESSION: 1. Relatively severe spinal stenosis at L5-S1 with effacement of the subarticular zones. There may be nerve compression, especially involving the S1 nerve roots. 2. Moderate right foraminal narrowing at L5-S1. 3. Moderate grade compression fracture of the L2 vertebral body which appears chronic. Narrative 01/03/2025 3:36 PM CDT Exam: MRI LUMBAR WO CONTRAST Date/Time of Exam: 01/03/2025 3:00 PM Reason For Exam: Lumbar radiculopathy, symptoms persist with > 6 wks treatment. Diagnosis: Lumbar radiculopathy. Technique: MRI of the lumbar spine was performed without the administration of intravenous contrast. Findings: There is accentuation of the lumbar lordosis with slight anterolisthesis at L5-S1. There is a compression fracture of the L2 vertebral body with moderate height loss and no significant marrow edema, suggesting a chronic fracture. No suspected acute compression fracture. There is marrow edema within the right L5 pedicle which is likely degenerative in nature. The conus terminates at the L1-2 level. L1-2: Mild disc bulge and mild facet arthropathy, otherwise unremarkable. L2-3: Endplate ridging and facet arthropathy with mild bilateral foraminal narrowing. L3-4: Mild facet arthropathy, otherwise unremarkable. L4-5: Facet arthropathy with mild right foraminal narrowing. L5-S1: Severe facet joint hypertrophy, thickening of ligamenta flava, disc bulge. Relatively severe spinal stenosis with prominent effacement of the subarticular zones. Moderate right foraminal narrowing. There are small cysts bilaterally within the kidneys. Procedure Note Jeffrey Grayson MD - 01/03/2025 Exam: MRI LUMBAR WO CONTRAST Date/Time of Exam: 01/03/2025 3:00 PM Reason For Exam: Lumbar radiculopathy, symptoms persist with > 6 wks treatment. Diagnosis: Lumbar radiculopathy. Technique: MRI of the lumbar spine was performed without the administration of intravenous contrast. Findings: There is accentuation of the lumbar lordosis with slight anterolisthesis at L5-S1. There is a compression fracture of the L2 vertebral body with moderate height loss and no significant marrow edema, suggesting a chronic fracture. No suspected acute compression fracture. There is marrow edema within the right L5 pedicle which is likely degenerative in nature. The conus terminates at the L1-2 level. L1-2: Mild disc bulge and mild facet arthropathy, otherwise unremarkable. L2-3: Endplate ridging and facet arthropathy with mild bilateral foraminal narrowing. L3-4: Mild facet arthropathy, otherwise unremarkable. L4-5: Facet arthropathy with mild right foraminal narrowing. L5-S1: Severe facet joint hypertrophy, thickening of ligamenta flava, disc bulge. Relatively severe spinal stenosis with prominent effacement of the subarticular zones. Moderate right foraminal narrowing. There are small cysts bilaterally within the kidneys. IMPRESSION: 1. Relatively severe spinal stenosis at L5-S1 with effacement of the subarticular zones. There may be nerve compression, especially involving the S1 nerve roots. 2. Moderate right foraminal narrowing at L5-S1. 3. Moderate grade compression fracture of the L2 vertebral body which appears chronic. us Brandee Blackwell RECRUITING MANAGER MR ORDERABLES Final Result * (ABNORMAL) XR DEXA BONE DENSITY AXIAL 1 OR MORE SITES (10/26/2022 2:20 PM CDT) T-SCORE SPINE -2.50(A) -1.0 - 1.0 INTER FACE SYSTEM T-SCORE HIP (LEFT) -2.30(A) -1.0 - 1.0 INTERFACE SYSTEM Anatomical Region Laterality Modality Digital Radiogra phy 10/26/2022 2:34 PM CDT Impressions 10/26/2022 6:26 PM CDT IMPRESSION: Abnormal examination Bone density lies in the osteoporotic range in the lumbar spine having decreased importantly at all locations lying at the average the patient's age-matched control consistent with age-appropriate physiologic demineralization responsible for her osteoporosis. NOF guidelines recommend consideration of FDA-approved medical therapies in patients with T-scores of the spine or hip equal to or less than -2.5. Consider remeasuring no sooner than 2 years only as clinically needed. Narrative 10/26/2022 6:26 PM CDT DEXA Evaluation of the Lumbar Spine and Left Proximal Femur Reason for Consultation: Osteoporosis screening. Evaluation of bone mineral density. The following absorptiometry data were obtained. The quality of this examination is acceptable with regards to count density, processed images, data display and lack of important artifacts (including but not limited to motion and attenuation artifacts). Serial examination number 3 with comparison to prior exams of 2015 and 2018. L1-L4 BMD (g/cm2): 0.772 Adult T-score: -2.5 Adult Z-score: 0.4 Left Femoral Neck BMD (g/cm2): 0.592 Adult T-score: -2.3 Adult Z-score: 0.2 Left Total Hip BMD (g/cm2): 0.667 Adult T-score: -2.3 Adult Z-score: 0.1 Procedure Note Jeffrey Dominguez MD - 10/26/2022 DEXA Evaluation of the Lumbar Spine and Left Proximal Femur Reason for Consultation: Osteoporosis screening. Evaluation of bone mineral density. The following absorptiometry data were obtained. The quality of this examination is acceptable with regards to count density, processed images, data display and lack of important artifacts (including but not limited to motion and attenuation artifacts). Serial examination number 3 with comparison to prior exams of 2016 and 2019. L1-L4 BMD (g/cm2): 0.772 Adult T-score: -2.5 Adult Z-score: 0.4 Left Femoral Neck BMD (g/cm2): 0.592 Adult T-score: -2.3 Adult Z-score: 0.2 Left Total Hip BMD (g/cm2): 0.667 Adult T-score: -2.3 Adult Z-score: 0.1 IMPRESSION: Abnormal examination Bone density lies in the osteoporotic range in the lumbar spine having decreased importantly at all locations lying at the average the patient's age-matched control consistent with age-appropriate physiologic demineralization responsible for her osteoporosis. NOF guidelines recommend consideration of FDA-approved medical therapies in patients with T-scores of the spine or hip equal to or less than -2.5. Consider remeasuring no sooner than 2 years only as clinically needed. Diane Funk MD DIAGNOSTIC IMAGING ORDERABL ES Final Result from Last 3 Months or Most Recently Relevant to Health Maintenance Additional Health Concerns Infection Onset Date Last Indicated COVID-19 03/13/2025 03/13/2025 Insurance MEDICARE PART A AND B GENERIC PA[employer] WORK [employer] [place] [id number] Advance Directives For more information, please contact: [phone] * Full Code (Latest Code Status on File) Date Activated Date Inactivated Comments 02/22/2023 5:17 PM 03/03/2023 3:13 PM * Default Full Code - Needs Discussion Date Activated Date Inactivated Comments 02/18/2023 3:57 PM 02/22/2023 4:49 PM Care Teams Bookkeeping Machine Operator Relationship Specialty Start Date End Date Diane Funk MD [address] [phone] PCP - General Family Practice 03/04/18
--- OUTSIDE RECORDS SUMMARY | 2025-03-13 16:03 | XMS_ITS | Encounter Summary ---
Author Organization [facility] Address [address] [place] [address] Care Team Providers Care Orthopaedic Physician Assistant Name Role Phone Diane Funk MD Primary Care Provider [phone] Encounter Details Date Type Department Care Team (Late st Contact Info) Description 11/19/2015 Ancillary Orders [facility] Centralized Scheduling [address] [address] Angel Armendariz MD [address] [place] [phone] Leg pain, right (Primary Dx); Right leg swelling Social History Tobacco Use Types Packs/Day Years [...] on file documented as of this encounter Visit Diagnoses Diagnosis Leg pain, right- Primary Pain in limb Right leg swelling documented in this encounter Additional Health Concerns Infection Onset Date Last Indicated Resolved Time R/O COVID-19 07/24/2020 07/24/2020 07/26/2020 12:3 1 AM 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
--- OUTSIDE RECORDS SUMMARY | 2025-03-13 16:03 | XMS_ITS | Encounter Summary ---
Author Organization [facility] Address [address] [place] [address] Care Team Providers Care Health Data Analyst Name Role Phone Diane Funk MD Primary Care Provider [phone] Encounter Details Date Type Department Care Team (Late st Contact Info) Description 11/19/2015 Ancillary Orders [facility] Admitting [address] [phone] Angel Armendariz MD [address] [place] [phone] Social History Tobacco Use Types Packs/Day Years [...] documented as of this encounter Visit Diagnoses Not on filedocumented in this encounter Additional Health Concerns Infection Onset Date Last Indicated Resolved Time R/O COVID-19 07/24/2020 07/24/2020 07/26/2020 12:3 1 AM EPOXY FABRICATION SUPERVISOR COVID-19 07/24/2020 07/24/2020 08/23/2020 8:08 PM EPOXY FABRICATION SUPERVISOR documented as of this encounter Care Teams Health Data Analyst Relationship Specialty Start Date End Date Diane Funk MD [address] [place] [phone] PCP - General Family Practice 03/04/18 documented as of this encounter
--- OUTSIDE RECORDS SUMMARY | 2025-03-13 16:03 | XMS_ITS | Encounter Summary ---
Author Organization [facility] Address [address] [place] [address] Care Team Providers Care Mercerizing Range Feeder Name Role Phone Diane Funk MD Primary Care Provider [phone] Reason for Referral * Outpatient Services (Urgent) - Closed Specialty Diagnoses / Procedures Referred By Contac t Referred To Contact Radiology Diagnoses Lower extremity pain, right Swelling of right lower extremity Procedures US VENOUS DOPPLER LEG RIGHT Angel Armendariz MD Phone: tel: fax: [facility] [place] [address] [place] [address] Phone: tel: fax: Referral ID Status Reason Start Date Expiration Date V isits Requested Visits Authorized [id number] Closed [facility] CTS to Schedule (SGF) 11/19/2015 12/19/2016 1 1 Encounter Details Date Type Department Care Team (Late st Contact Info) Description 11/19/2015 Ancillary Orders [facility] Centralized Scheduling [address] [place] [address] Angel Armendariz MD [address] [place] [phone] Lower extremity pain, right (Primary Dx); Swelling of right lower extremity Social History Tobacco Use Types Packs/Day Years [...] documented as of this encounter Results * US VENOUS DOPPLER LEG RIGHT (11/19/2015 3:05 PM CDT) Anatomical Region Laterality Modality Lower Extremity Ultrasound 11/19/2015 3:06 PM CDT Impressions 11/19/2015 3:23 PM CDT IMPRESSION: 1. No evidence of deep vein thrombosis in the right lower extremity. 2. House's cyst is not apparent. [id number] Narrative 11/19/2015 3:23 PM CDT Exam: US VENOUS DOPPLER LEG RIGHT Date/Time of Exam: 11/19/2015 3:05 PM Reason For Exam: Lower extremity pain, right,Swelling of right lower extremity. Findings: Venous Doppler ultrasound of the right lower extremity demonstrates no evidence of deep vein thrombosis. Vessels are compressible and intraluminal filling defects are not identified. There is normal color fill and augmentation. Greater saphenous vein is patent. us Angel Armendariz MD US ORDERABLES Final Result documented in this encounter Visit Diagnoses Diagnosis Lower extremity pain, right- Primary Swelling of right lower extremity Swelling of limb Lower extremity pain, right Swelling of right lower extremity Swelling of limb documented in this encounter Additional Health Concerns Infection Onset Date Last Indicated Resolved Time R/O COVID-19 07/24/2020 07/24/2020 07/26/2020 12:3 1 AM JV BASEBALL COACH COVID-19 07/24/2020 07/24/2020 08/23/2020 8:08 PM JV BASEBALL COACH documented as of this encounter Care Teams Mercerizing Range Feeder Relationship Specialty Start Date End Date Diane Funk MD [address] [facility] [address] [place] [phone] PCP - General Family Practice 03/04/18 documented as of this encounter
--- OUTSIDE RECORDS SUMMARY | 2025-03-13 16:04 | XMS_ITS | Encounter Summary ---
Author Organization [facility] Address 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; Anxiety state Social History Tobacco Use Types Packs/Day Years Used Date Smoking Tobacco: Never Smokeless Tobacco: Never Alcohol Use Standard Drinks/Week Comments Not Currently 0 (1 standard drink = 0.6 oz pur e alcohol) Comments No Sex and Gender Information Value Date Recorded Sex Assigned at Not on file Legal Sex Female 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 Gender Identity Not on file Sexual Orientation Not on file documented as of this encounter Plan of Treatment Upcoming Encounters Date Type Department Care Team (Late Contact Info) Description 03/22/2025 12:40 PM CDT Office Visit [facility] [address] [place] [address] Brandee Blackwell, HISTORIOGRAPHY TEACHER [address] [place] [phone] 05/31/2025 2:20 PM CDT Office Visit [facility] [address] [place] [address] Diane Funk MD [address] [phone] documented as of this encounter Visit Diagnoses Diagnosis Spinal stenosis of lumbar region without neurogenic claudication Spinal stenosis, lumbar region, without neurogenic claudication Anxiety state Anxiety state, unspecified documented in this encounter Care Teams Flavor Maker Relationship Specialty Start Date End Date Diane Funk MD [address] [phone] PCP - General Family Practice 03/04/18 documented as of this encounter
--- OUTSIDE RECORDS SUMMARY | 2025-03-13 16:04 | XMS_ITS | Encounter Summary ---
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 (CMS/HCC) Procedures XR DEXA BONE DENSITY AXIAL 1 OR MORE SITES Angel Armendariz MD Phone: tel: fax: [facility] [address] [place] [address] Phone: tel: fax: Referral ID Status Reason Start Date Expiration Date V isits Requested Visits Authorized [id number] Closed [facility] View CTS to Schedule (SGF) 09/21/2018 10/22/2019 1 1 SEAT COVERER Encounter Details Date Type Department Care Team (Late st Contact Info) Description 09/21/2018 Ancillary Orders [facility] Centralized Scheduling [address] [place] [address] Angel Armendariz MD [address] [place] [phone] Estrogen receptor positive status (ER+); Age-related osteoporosis without current pathological fracture; 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 female breast (CMS/HCC) Social History Tobacco Use Types Packs/Day Years Used Date Smoking Tobacco: Never Smokeless Tobacco: Never Alcohol Use Standard Drinks/Week Comments No 0 (1 standard drink = 0.6 oz pur e alcohol) occassional wine Comments No Sex and Gender Information Value Date Recorded Sex Assigned at Not on file Legal Sex Female 1:35 PM CDT Gender Identity Not on file Sexual Orientation Not on file documented as of this encounter Plan of Treatment Not on file documented as of this encounter Results * XR DEXA BONE DENSITY AXIAL 1 OR MORE SITES (09/28/2018 2:00 PM CAR SEAT COVERER) Anatomical Region Laterality Modality Digital Radiogra phy 09/28/2018 2:56 PM CAR SEAT COVERER Impressions 09/30/2018 12:15 AM CAR SEAT COVERER IMPRESSION: 1. Current findings consistent with severe osteopenia; there is currently moderate/high risk for fracture with site of lowest density at the femoral neck. 2. Age matched Z-score of greater than -2.0 does not indicate accelerated bone demineralization. Definitions: T-score > -0.99 = Normal T-score -1.00 to -1.49 = mild osteopenia T-score -1.50 to -1.99 = moderate osteopenia T-score -2.00 to -2.49 = severe osteopenia T-score < -2.50 = osteoporosis N.B. Changes in density of <=0.05 g/cm2 are not statistically significant. RECOMMENDATIONS: Normal: Low risk for fracture - f/u in 2 years Mild/Mod osteopenia: Moderate risk for fracture - f/u in 1 year Severe osteopenia: Moderate/high risk for fracture - f/u in 1 year Osteoporosis: High risk for fracture - f/u in 1 year NOF guidelines recommend consideration of FDA-approved medical therapies in patients with FRAX determined 10-year probabilities of hip/major osteoporosis-related fractures equal or greater than 3%/20% respectively. Consider assessing fracture risk using the FRAX analysis tool for guidance of clinical management available online at www.shef.ac.uk/FRAX/. [employer] for Select DXA and the Femoral Neck BMD value. [id number] Narrative 09/30/2018 12:15 AM CAR SEAT COVERER DEXA Evaluation of the Lumbar Spine and Proximal Femur Reason for Consultation: Osteoporosis screening. Evaluation of bone mineral density. The following absorptiometry data were obtained. The quality of this examination is acceptable with regards to count density, processed images, data display and lack of important artifacts (including but not limited to motion and attenuation artifacts). L1-L4 BMD (g/cm2): 0.843 Adult T-score: -1.9 Adult Z-score: Normal Left Femoral Neck BMD (g/cm2): 0.624 Adult T-score: -2.0 Adult Z-score: Normal Left Total Hip BMD (g/cm2): 0.754 Adult T-score: -1.5 Adult Z-score: Normal Procedure Note James Bianchi MD - 09/30/2018 DEXA Evaluation of the Lumbar Spine and Proximal Femur Reason for Consultation: Osteoporosis screening. Evaluation of bone mineral density. The following absorptiometry data were obtained. The quality of this examination is acceptable with regards to count density, processed images, data display and lack of important artifacts (including but not limited to motion and attenuation artifacts). L1-L4 BMD (g/cm2): 0.843 Adult T-score: -1.9 Adult Z-score: Normal Left Femoral Neck BMD (g/cm2): 0.624 Adult T-score: -2.0 Adult Z-score: Normal Left Total Hip BMD (g/cm2): 0.754 Adult T-score: -1.5 Adult Z-score: Normal IMPRESSION: 1. Current findings consistent with severe osteopenia; there is currently moderate/high risk for fracture with site of lowest density at the femoral neck. 2. Age matched Z-score of greater than -2.0 does not indicate accelerated bone demineralization. Definitions: T-score > -0.99 = Normal T-score -1.00 to -1.49 = mild osteopenia T-score -1.50 to -1.99 = moderate osteopenia T-score -2.00 to -2.49 = severe osteopenia T-score < -2.50 = osteoporosis N.B. Changes in density of <=0.05 g/cm2 are not statistically significant. RECOMMENDATIONS: Normal: Low risk for fracture - f/u in 2 years Mild/Mod osteopenia: Moderate risk for fracture - f/u in 1 year Severe osteopenia: Moderate/high risk for fracture - f/u in 1 year Osteoporosis: High risk for fracture - f/u in 1 year NOF guidelines recommend consideration of FDA-approved medical therapies in patients with FRAX determined 10-year probabilities of hip/major osteoporosis-related fractures equal or greater than 3%/20% respectively. Consider assessing fracture risk using the FRAX analysis tool for guidance of clinical management available online at www.shef.ac.uk/FRAX/. Enter [employer] for Select DXA and the Femoral Neck BMD value. 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
--- OUTSIDE RECORDS SUMMARY | 2025-03-13 16:04 | XMS_ITS | Patient Health Record ---
Author Organization [facility] Address [address] [place], [place] [address] Care Team Providers Care Laborer Landscape Name Role Phone Blessing RASHID, Diane Primary Care Provider Darby Croft MD, [facility] [phone] Allergies Allergen (clinical drug ingredient) Drug/Non Drug Allergy documented on EMR Reaction Allergy Type Onset Date Status ciprofloxacin ciprofloxacin Unknown Drug Allergy Active Reason For Referral No Information Medications Medication SIG (Take, Route, Frequency, Duration) Notes Start Date End Date Status gabapentin 300 mg 1 cap po orally TID Active Calcium 600+D 600 mg-200 units orally as directed Active Bliss 325 mg-7.5 mg 1 tab po orally Q6H prn pain Active anastrozole 1 mg 1 tab orally once a day Active Metoprolol Succinate ER 50 mg 1 tab orally once a day Acti ve [employer]'s Therapeutic Multiple Vitamins with Minerals 1 tab orally once a day Acti ve levothyroxine 50 mcg (0.05 mg) 1 tab orally once a day Acti ve amLODIPine 5 mg 1 tab orally once a day Active Tylenol 8 HR Arthritis Pain 650 mg 1-2 tab(s) orally every 8 hours, as needed Active lisinopril 40 mg 1 tab orally every morning and 1/2 tab every evening Active zolpidem 10 mg 1 tab orally once a day (at bedtime), as needed for insomnia Active Social History Tobacco Use: Social History Observation Description Date Details (start date - stop date) Never Smoker NA - NA alcohol Question Answer Notes Did you have a drink contain ing alcohol in the past year? Yes How often did you have a dri nk containing alcohol in the past year? Two to four times a month (2 points) How many drinks did you have on a typical day when you were drinking in the past year? 1 or 2 (0 points) How often did you have six o r more drinks on one occasion in the past year? Never (0 points) Points 2 Interpretation Negative Tobacco use: Question Answer Notes : nonsmoker Problems Problem Type SNOMED Code ICD Code Onset Dates Problem Status W/U Status Risk Notes Problem Sacroiliitis, not elsewhere classified (M46.1) Active confirmed Problem Low back pain (432317805) Low back pain (M54.5) Active confirmed Problem Lumbosacral spondylosis without myelopathy (97884723) Spondylosis without myelopathy or radiculopathy, lumbar region (M47.816) Active confirmed Suggestion of 6 lumbar vertebral levels as per an imaging study report; via fluoroscopy 4 lumbar appearing vertebrae appreciated plus a transitional, sacralized L5 (for prior WPSC and 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 nomenclature purposes the inferior most of the four has been labeled as L5) Problem Anxiety disorder (967139868) Other specified anxiety disorders (F41.8) Active confirmed Problem Acquired spondylolisthesis (489213436) Spondylolisthes is, lumbar region (M43.16) Active confirmed Problem Radiculopathy due to lumbar intervertebral disc disorder (037590303295649) Intervertebral disc disorders with radiculopathy, lumbar region (M51.16) Active confirmed Problem Long-term current use of drug therapy (972652142) Other senior care (current) drug therapy (Z79.899) Active confirmed Problem Neurogenic claudication (501831582) Spinal stenosis, lumbar region with neurogenic claudication (M48.062) Active confirmed Plan Of Treatment No Information Insurance Providers Payer Name Payer Address Payer Phone Subscriber Number Group Number Insured Name Patient Relationship to Insured Coverage Start Date Coverage End Date S Medicare Part B Claims Department [address] [address] [place] [address] [phone] [id number] January Self - patient is the insured Medical (General) History Medical History History ICD Code Hypothyroidism Hypertension Chronic kidney disease stage 3 Spinal stenosis of lumbar region History of breast cancer Left-sided thoracic back pain 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 Leary, 11/26/12 Right knee replacement in [place] by Dr. Sophy Shearer, 07/28/13
--- OUTSIDE RECORDS SUMMARY | 2025-03-13 16:04 | XMS_ITS | Clinical Summary ---
Author Organization [facility] Address [address] [facility] [facility] [address] [place] [address] Care Team Providers Care Analytics Specialist Name Role Phone Diane Funk MD Primary Care Provider [phone] Allergies Active Allergy Reactions Criticality Noted Date Comments Ciprofloxacin Unknown 03/22/2015 Medications aspirin (ECOTRIN EC) 81 mg Tablet, Delayed Release (E.C.) Take 81 mg by mouth daily. Active multivitamin (DAILY-JONNY) tablet Take 1 Tablet by mouth daily. Active fluticasone (FLONASE) 50 mcg/spray [place], Suspension SHAKE LIQUID AND USE 2 SPRAYS IN EACH NOSTRIL DAILY 48 mL 5 7 Active triamcinolone acetonide (KENALOG) 0.025 % Cream Apply to affected area 2 times daily. 15 Gram 8 Active ergocalciferol, vitamin D2, (VITAMIN D ORAL)Indications :Prescribed by Dr. Armendariz Take by mouth daily. Active ALPRAZolam (Xanax) 0.25 mg tabletIndication s:Anxiety state Take 1 Tablet (0.25 mg) by mouth 1 time daily as needed for Anxiety. 30 Tablet 0 Active lisinopriL (PRINIVIL) 40 mg tablet Take 1 Tablet (40 mg) by mouth 2 times daily. 180 Tablet 1 0 Active naloxone (NARCAN) 4 mg/spray [place], Non-Aerosol EMERGENCY USE ONLY: Administer 1 spray (4 mg) in one nostril one time. May repeat in alternating nostrils every 2-3 min until responsive or EMS arrives. 2 Each 3 0 Active HYDROcodone-acet aminophen (NORCO) 7.5-325 mg TabletIndication s:Spinal stenosis of lumbar region without neurogenic claudication Take 1 Tablet by mouth every 6 hours as needed for Pain, Moderate. Last visit 07-21-19 Max Daily Amount: 4 Tablets 30 Tablet 1 Active atenoloL (TENORMIN) 50 mg tablet TAKE 1 TABLET(50 MG) BY MOUTH TWICE DAILY 180 Tablet 3 1 Active LEVOTHYROXINE 50 mcg tablet TAKE 1 TABLET(50 MCG) BY MOUTH DAILY 90 Tablet 1 Active amLODIPine (NORVASC) 5 mg tablet Take 1 Tablet (5 mg) by mouth daily. TAKE 1 TABLET(5 MG) BY MOUTH DAILY 90 Tablet 1 Active gabapentin (NEURONTIN) 300 mg capsule TAKE 1 CAPSULE BY MOUTH EVERY MORNING, 1 AT NOON, AND 2 CAPSULES BY MOUTH EVERY NIGHT AT BEDTIME 120 Capsule 1 Active zolpidem (AMBIEN) 5 mg tabletIndication s:Primary insomnia Take 1 Tablet (5 mg) by mouth nightly as needed for Insomnia. 30 Tablet 1 Active Active Problems Problem Noted Date Diagnosed Date Mixed hyperlipidemia 07/01/2020 S/P total knee arthroplasty, right 12/08/2018 CKD (chronic kidney disease) stage 3, GFR 30-59 ml/min 08/05/2016 Left-sided thoracic back pain 07/08/2015 Insomnia 03/25/2015 Allergic rhinitis due to pollen 03/22/2015 Hypothyroidism (acquired) 03/22/2015 Spinal stenosis 03/22/2015 Benign hypertension 03/22/2015 History of breast cancer 03/22/2015 Immunizations Immunization Administration Dates Next Due ([place])(12 YR UP) COVID-19 VACCINE - EMERGENCY USE AUTHORIZATION, MRNA, [id number](PF) 30 MCG/0.3 ML IM SUSP 09/11/2020,08/21/2020 (PNEUMOVAX 23)(50 YRS UP) PN EUMOCOCCAL POLYSACCHARIDE (PPV23) 0.5 ML, IM 05/06/2019 (PREVNAR 13)(6 WKS UP) PNEUM OCOCCAL CONJUGATE (PCV13) 0.5 ML, IM 06/27/2015 INFLUENZA VACCINE HIGH DOSE QUADRIVALENT 65 YR UP PF IM 05/31/2020 Influenza Seasonal Unspecifi ed Formulation IM 06/16/2018,06/04/2017 Influenza Vaccine High Dose 65+ Yrs IM 0 05/02/2018,06/04/2017,05/27/2016,06/27,06/11/2014 Social History Tobacco Use Types Packs/Day Years Used Date Smoking Tobacco: Never Smokeless Tobacco: Never Alcohol Use Standard Drinks/Week Comments Yes 0 (1 standard drink = 0.6 oz pur e alcohol) occassional wine Comments No Sex and Gender Information Value Date Recorded Sex Assigned at Not on file Legal Sex Female 1:35 PM CDT Gender Identity Not on file Sexual Orientation Not on file Last Filed Vital Signs Vital Sign Reading Time Taken Comments Blood Pressure 123/80 01/28/2021 2:42 PM CDT Pulse 72 01/28/2021 2:42 PM CDT Temperature 36.6 C (97.8 F) 01/28/2021 2:42 PM CDT Respiratory Rate 18 01/28/2021 2:42 PM CDT Oxygen Saturation 93% 01/28/2021 2:42 PM CDT Inhaled Oxygen Concentration - - Weight 55.9 kg (123 lb 3.2 oz) 01/28/2021 2:42 P M CDT Height 162.6 cm (5' 4 ) 01/28/2021 2:42 PM CDT Body Mass Index 21.15 01/28/2021 2:42 PM CDT Plan of Treatment Health Maintenance Due Date Last Done Comments DTAP/TDAP/TD VACCINES (1 - Tdap) 1955 ZOSTER VACCINE (1 of 2) 1986 RSV VACCINE (60+ or ) (1 - 1-dose 75+ series) 2011 Traditional Medicare (ACO) A nnual Wellness Visit 08/06/2017 08/05/2016, 06/07/2015 COVID-19 Vaccine (3 - 2023-2 5 season) 2024 09/11/2020, 08/21/2020 INFLUENZA VACCINE (#1) 2025 0, 06/16/2018, 05/02/2018, Additional history exists OSTEOPOROSIS SCREENING 10/27/2027 3, 09/28/2018, 11/19/2015, Additional history exists PNEUMOCOCCAL VACCINE 50+ YEARS Completed 0 05/06/2019, 10/14/2018, 06/27/2015 Procedures Procedure Name Priority Date/Time Associated Diagnosis Comments XR DEXA BONE DENSITY AXIAL 1 OR MORE SITES Routine 09/28/2018 2:00 PM FUNCTIONAL SUPPORT ANALYST Estrogen receptor positive status (ER+) Age-related osteoporosis without current pathological fracture 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 female breast (CMS/HCC) from Last 3 Months or Most Recently Relevant to Health Maintenance Results * XR DEXA BONE DENSITY AXIAL 1 OR MORE SITES (09/28/2018 2:00 PM FUNCTIONAL SUPPORT ANALYST) Anatomical Region Laterality Modality Digital Radiogra phy 09/28/2018 2:56 PM FUNCTIONAL SUPPORT ANALYST Impressions 09/30/2018 12:15 AM FUNCTIONAL SUPPORT ANALYST IMPRESSION: 1. Current findings consistent with severe [...] clinical management available online at www.shef.ac.uk/FRAX/. Enter [employer] for Select DXA and the Femoral Neck BMD value. [id number] Narrative 09/30/2018 12:15 AM FUNCTIONAL SUPPORT ANALYST DEXA Evaluation of the Lumbar Spine and [...] -1.5 Adult Z-score: Normal Procedure Note James Bainchi MD - 09/30/2018 DEXA Evaluation of the [...] clinical management available online at www.shef.ac.uk/FRAX/. Enter [employer] for Select DXA and the Femoral Neck BMD value. [id number] Angel Armendariz MD DIAGNOSTIC IMAGING ORDERABLE S Final Result from Last 3 Months or Most Recently Relevant to Health Maintenance Insurance MEDICARE PART A AND B GENERIC PAYOR Care Teams Analytics Specialist Relationship Specialty Start Date End Date Diane Funk MD [address] [phone] PCP - General Family Practice 03/04/18
--- OUTSIDE RECORDS SUMMARY | 2025-03-13 16:04 | XMS_ITS | Encounter Summary ---
Author Organization [facility] Address [address] 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 Gender Identity Not on file Sexual Orientation Not on file documented as of this encounter Plan of Treatment Upcoming Encounters Date Type Department Care Team (Late st Contact Info) Description 03/22/2025 12:40 PM CDT Office Visit [facility] Pain Management [address] [place] [address] Brandee Blackwell, CLARA [address] [place] [address] 05/31/2025 2:20 PM CDT Office Visit [facility] Family Medicine [address] [address] Diane Funk MD [address] [phone] documented as of this encounter Visit Diagnoses Not on filedocumented in this encounter Additional Health Concerns Infection Onset Date Last Indicated Resolved Time R/O COVID-19 03/13/2025 03/13/2025 03/13/2025 10:4 5 AM CDT COVID-19 03/13/2025 03/13/2025 documented as of this encounter Care Teams Window Shade Cloth Sewer Relationship Specialty Start Date End Date Diane Funk MD [address] [address] PCP - General Family Practice 03/04/18 documented as of this encounter
--- NOTE | 2025-03-13 16:18 | P.HP_ITS ---
Providers/Chief Complaint 2 Admitting Physician: Amy Anderson MD Primary Care Provider: Riya Funk MD Chief Complaint: Covid+ / AFIB / Acute Resp Fail History of Present Illness Dana Arias is a 89 year old female With past medical history of breast cancer, nonmelanoma skin cancer, hypertension, hypothyroidism, osteoporosis presented to the hospital today from [facility] for complaint of atrial fibrillation with RVR. Patient was maximized on Cardizem drip however due to still being uncontrolled she was switched to amiodarone. She was seen in room ICU 5. She states that she came home from [place] over the weekend and initially had a sore throat therefore could not really talk much. Then she developed a sinus infection. She got home on Wednesday. Wednesday afternoon which was yesterday she could not breathe. She ended up waiting and today went to the hospital. She has a new oxygen requirement. On 3 L nasal cannula at this time saturating 99%. She does not have a known history of heart failure or atrial fibrillation. She states she has been coughing and bringing up phlegm. She will give us a sputum sample shortly. She had COVID in 2019. Denies a feeling of palpitations. She states her main complaint was trouble breathing. At [facility] troponin 103, D-dimer 0.89 WBC 14,000, neutrophils 88 ESR normal CRP 233, sodium 121 COVID-positive. CTA negative for PE. Patient denies chest pain. She was started on a heparin drip. Vital signs 129/81, saturating 99% on 4 L heart rate 120-145. Patient complained of shortness of breath. Medications/Allergies Home Medications ?Medication ?Instructions ?Recorded ?Confirmed ?Last Taken ?Type acetaminophen 325 mg tablet 325 mg PO QID PRN 03/04/20 06/09/22 Unknown History (Tylenol) amlodipine 5 mg tablet 5 mg PO DAILY 03/04/2006/09 Unknown History atenolol 50 mg tablet 50 mg PO DAILY 03/04/2005/17 Unknown History gabapentin 300 mg capsule 300 mg PO DAILY 03/04/20 Unknown History hydrocodone 7.5 mg-acetaminophen 1 tab PO BID PRN 02/1406/09/22 Unknown History 325 mg tablet ([place]) levothyroxine 50 mcg capsule 50 mcg PO DAILY 03/04/20 06/09/22 Unknown History lisinopril 40 mg tablet 40 mg PO DAILY 03/04/2005/17 Unknown History zolpidem 10 mg tablet PO 03/04/20 06/09/22 Unknown History fluticasone propionate 50 1 spray intranasal DAILY PRN 03/02/22 06/09/22 Unknown History mcg/actuation nasal spray,suspension (Flonase Allergy Relief) triamcinolone acetonide 0.1 % 1 applic topical BID 06/09/22 Unknown History topical cream Allergies Allergy/AdvReac Type Severity Reaction Status Date / Time tramadol Allergy Unknown Verified 03/13/25 17:31 PFSH Acute 2 PFSH: Medical History (Updated 03/13/25 @ 18:46 by Amy Anderson MD) Osteoporosis Hypothyroidism Hypertension Breast cancer History of nonmelanoma skin cancer Surgical History Left wrist fracture 1943 History of tonsillectomy 194 History of total knee arthroplasty (07/2013) History of left mastectomy (11/15/12) Left mastectomy with axillary sentinel lymph node biopsy History of colonoscopy (2006) 2006 Hx of bilateral cataract extraction (2010) Family History Other Cancer Denies family history of Diabetes CAD (coronary artery disease) Clotting disorder Dementia Hyperlipidemia Psychiatric illness Chronic kidney disease (CKD) Suicide Anesthesia complication Bleeding disorder Lung disease Hypertension Stroke Social History Smoking and tobacco/nicotine status: never used tobacco/nicotine Alcohol intake: current Alcohol intake frequency: few times a week Alcohol type: wine Physical Exam 2 Narrative: General: Alert oriented x3, patient seen sitting up in bed appearing comfortable. No conversational dyspnea noted. On 3 the nasal cannula saturating 99% at this time. HEENT: Normocephalic, atraumatic, EOMI, Cardio: Irregularly irregular Respiratory: Clear to auscultation bilaterally, no wheezes no rhonchi no crackles GI: Abdomen soft, nontender, nondistended, bowel sounds + Extremities: No edema bilateral lower extremities. Data 03/13/25 16:33 07/29/25 16:33 A&P Assessment and plan 1. Atrial fibrillation: 2. COVID: 3. Supplemental oxygen dependent: 4. Cough: 5. Hyponatremia: 6. High anion gap: 7. Elevated liver enzymes: Plan: #Atrial fibrillation with RVR #Supplemental oxygen requirement #Hypertension #Hyperlipidemia #Cough, shortness of breath #COVID-positive #Recent travel #Hypothyroidism ? Reviewed all of data from [facility] ? Will check repeat BMP, CBC, lactic acid, phosphorus, ABG, troponins, chest x- ray, BNP, respiratory panel, EKG ? Continue amiodarone drip ? Continue on heparin drip for new onset A-fib. ? Consult cardiology ? Discussed with pharmacy regarding remdesivir. Patient meets criteria for remdesivir at this time. There is no contraindication to being on amiodarone. She has new supplemental oxygen requirement therefore we will go ahead and order that for the patient. ? Check sputum culture Gram stain ? Check blood cultures ? Check chest x-ray, BNP ? Patient does not appear to be in heart failure clinically. ? Check echocardiogram ? Patient denies chest pain ? CRP elevated will trend. ? CT has ruled out PE at [facility] ? Sodium 121 at [facility]. Will recheck BMP. ? Check serum, urine osmolality, urine sodium ? Check BMP every 4 hours ? Consult nephrology - Will need to confirm home meds - Will wait to order iV fluids till urine sodium results - Order dexamethasone 6 IV daily Full code DVT prophylaxis: On heparin drip at this time PDMP PDMP Reviewed: Not Reviewed Attestations 2 Medical Necessity Statement*: afib rvr, covid infection, needs > 2 midnight stay hyponatremia Diagnoses Atrial fibrillation I48.91 COVID U07.1 Supplemental oxygen dependent Z99.81 Cough R05.9 Hyponatremia E87.1 High anion gap E87.8 Elevated liver enzymes R74.8
--- NOTE | 2025-03-13 16:20 | ECG_ITS ---
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 Measurements Intervals [place] Rate: 97 P: 0 NH: 0 QRS: 37 QRSD: 83 T: -1 QT: 337 QTc: 430 Interpretive Statements ATRIAL FIBRILLATION No previous ECG available for comparison Electronically Signed On 03-15-2025 10:25:55 CDT by Yoandy Benavides M.D. [email or web address] [id number]
[2025-03-13 16:39] LABS: Platelet Count 209 10^3/cmm (157-399)
[2025-03-13 17:05] LABS: Troponin(5th) Baseline 78 ng/L (0-10)
[2025-03-13 17:22] LABS: NT Pro B Type Natriuretic Pept 11318 pg/mL (0-450); Procalcitonin 0.49 ng/mL (0-0.5); Thyroid Stimulating Hormone 2.16 uIU/mL (0.27-4.20)
[2025-03-13 17:34] LABS: Alanine Aminotransferase 78 U/L (0-33); Albumin Level 3.2 g/dL (3.5-5.2); Alkaline Phosphatase 119 U/L (35-105); Anion Gap 23.2 (5-19); Aspartate Amino Transferase 78 U/L (0-32); Blood Urea Nitrogen 14 mg/dL (8-23); Calcium 8.5 mg/dL (8.5-10.5); Carbon Dioxide 17 mmol/L (22-29); Chloride 84 mmol/L (98-107); Creatinine Clr Calc Pharmacy 42.3276; Globulin 3.5 g/dL (1.3-4.6); Glucose 201 mg/dL (65-115); Magnesium 1.9 mg/dL (1.7-2.3); Osmolality Calculated 256 mOsm/kg (285-295); Potassium 4.2 mmol/L (3.5-5.1); Sodium 120 mmol/L (136-145); Total Protein 6.7 g/dL (6.6-8.7)
[2025-03-13] MEDS: methylPREDNISolone sod succ 40 mg/mL INJ IVP (17:35)
[2025-03-13] MEDS: heparin drip 25,000 UNIT/500 ML PREMIX 17 UNIT IV (17:37)
--- NOTE | 2025-03-13 17:50 | XRR_ITS ---
PROCEDURE INFORMATION: Exam: XR Chest Exam date and time: 03/13/2025 5:55 PM Age: 89 years old Clinical indication: Condition or disease; Lung condition and disease; Pulmonary edema; Status not specified; Prior surgery; Surgery date: 6+ months; Surgery type: Mastectomy, history of breast cancer; Additional info: Pulm edema TECHNIQUE: Imaging protocol: Radiologic exam of the chest. Views: 1 view. COMPARISON: No relevant prior studies available. FINDINGS: Tubes, catheters and devices: Overlying monitor leads and oxygen tubing. Lungs: Pulmonary vascularity is mildly prominent. Ill-defined opacity is seen within the lung bases, [id number]-left. No consolidation otherwise. Pleural spaces: Likely trace effusion at the costophrenic angles. No significant or prominent effusion. No pneumothorax. Heart/Mediastinum: Mild left ventricular prominence without significant cardiomegaly. Vasculature: Arteriosclerosis thoracic aorta. Bones/joints: Visualized osseous structures show no acute abnormality. Soft tissues: Postsurgical clips left axillary region. Other findings: Mild patient rotation. XR/XR chest 1V [id number] IMPRESSION: Mild pulmonary vascular congestion. Ill-defined opacity lower lungs, [id number]-left, could reflect pulmonary edema with the clinical history though component of infiltrate/pneumonia and/or atelectasis could be present. Correlate clinically and follow-up can be performed.
[2025-03-13 17:52] LABS: Lactic Sepsis W/Reflex 2.8 mmol/L (0.5-2.2)
[2025-03-13 18:49] LABS: INR 1.01 (0.8-1.2); Prothrombin Time 14.00 SECONDS (12.1-14.9)
[2025-03-13 19:10] LABS: Troponin 5 2HR 65.07 ng/L (0-10)
[2025-03-13 19:11] LABS: Troponin 5 2HR Delta -12.93 ABS# (0-10)
[2025-03-13 19:15] LABS: Reflex Lactate Order REFLEX LACTIC ORDERD
[2025-03-13 19:28] LABS: Coronavirus 229E,HKU1,NL63,OC4 Not Detected (NOT DETECT); Parainfluenza Virus Type 1 Not Detected (NOT DETECT); Parainfluenza Virus Type 2 Not Detected (NOT DETECT); Parainfluenza Virus Type 3 Not Detected (NOT DETECT); Parainfluenza Virus Type 4 Not Detected (NOT DETECT)
[2025-03-13 19:53] LABS: Hematocrit 34.6 % (36-47); Hemoglobin 11.80 g/dL (11.27-16.99); Mean Corpuscular HGB Conc 34.1 g/dL (30-55); Mean Corpuscular Hemoglobin 31.5 pg (27-33); Mean Corpuscular Volume 92.3 fl (85-98); Nucleated Red Blood Cells % 0 %; Platelet Count 232 10^3/cmm (157-399); Red Blood Count 3.75 10^6/uL (3.85-5.65); White Blood Count 16.61 10^3/uL (3.29-11.43)
[2025-03-13 20:19] LABS: SARS-COV-2 Detected (NOT DETECT)
[2025-03-13 20:24] LABS: Glucose Urine UA Trace (Normal); Nitrate Urine Negative (Negative)
--- NOTE | 2025-03-13 20:24 | PM.CONSULT ---
Providers/Reason For Consult Consulting Physician/Specialty*: kommana/Nephrology Reason for Consult*: Hyponatremia Attending Physician: Amy Anderson MD Primary Care Provider: Riya Funk MD History of Present Illness History of Present Illness Dana Arias is a 89 year old female Patient is 89-year-old female with past medical history of breast cancer hypertension hypothyroidism, osteoporosis initially presented to [facility] due to generalized weakness, and was found to be in A-fib with RVR. She was started on Cardizem drip and amiodarone drip and then transferred here. Patient reported that she just came back from a trip from [place] but after she returned started having sore throat cough shortness of breath. She tested positive for COVID. Currently on 3 L nasal cannula. Lab data is significant for WBC count of 14,000, CTA was negative for PE but showed bilateral pleural effusions. Has elevated troponin. Sodium was 120, bicarbonate level was 17. Creatinine was 0.8. Review of Systems Narrative: negative Medications/Allergies Home Medications ?Medication ?Instructions ?Recorded ?Confirmed ?Last Taken ?Type acetaminophen 325 mg tablet 325 mg PO QID PRN 03/04/20 06/09/22 Unknown History (Tylenol) amlodipine 5 mg tablet 5 mg PO DAILY 03/04/20 06/09/22 Unknown History atenolol 50 mg tablet 50 mg PO DAILY 03/04/20 06/09/22 Unknown History gabapentin 300 mg capsule 300 mg PO DAILY 03/04/20 06/09/22 Unknown History hydrocodone 7.5 mg-acetaminophen 1 tab PO BID PRN 03/04/20 06/09/22 Unknown History 325 mg tablet ([place]) levothyroxine 50 mcg capsule 50 mcg PO DAILY 03/04/20 06/09/22 Unknown History lisinopril 40 mg tablet 40 mg PO DAILY 03/04/20 06/09/22 Unknown History zolpidem 10 mg tablet PO 03/04/20 06/09/22 Unknown History fluticasone propionate 50 1 spray intranasal DAILY PRN 03/02/22 06/09/22 Unknown History mcg/actuation nasal spray,suspension (Flonase Allergy Relief) triamcinolone acetonide 0.1 % 1 applic topical BID 06/09/22 06/09/22 Unknown History topical cream Allergies Allergy/AdvReac Type Severity Reaction Status Date / Time tramadol Allergy Unknown Verified 03/13/25 17:31 Current Medications Generic Name Dose Route Start Last Admin Trade Name Freq PRN Reason Stop Dose Admin Heparin Sodium/Sodium Chloride 25,000 unit in 500 mls @ 0 mls/hr 03/13/25 16:30 03/13/25 17:37 Heparin Drip IV 14.33 unit/kg/hr CONT PAKO 17 mls/hr Protocol Administration Per Protocol Amiodarone HCl/Dextrose 360 mg in 200 mls @ 0 mls/hr 03/13/25 18:30 03/13/25 18:47 Nexterone IV 0.5 mg/min .Q0M PAKO 16.67 mls/hr Protocol Titration Per Protocol Azithromycin 500 mg/ Sodium 250 mls @ 250 mls/hr 03/13/25 18:45 03/13/25 19:28 Chloride IV 250 mls/hr Q24H PAKO Administration Protocol PFSH Acute PFSH: Medical History (Updated 03/13/25 @ 18:46 by Amy Anderson MD) Osteoporosis Hypothyroidism Hypertension Breast cancer History of nonmelanoma skin cancer Surgical History Left wrist fracture 1943 History of tonsillectomy 194 History of total knee arthroplasty (07/2013) History of left mastectomy (11/15/12) Left mastectomy with axillary sentinel lymph node biopsy History of colonoscopy (2006) 2006 Hx of bilateral cataract extraction (2010) Family History Other Cancer Denies family history of Diabetes CAD (coronary artery disease) Clotting disorder Dementia Hyperlipidemia Psychiatric illness Chronic kidney disease (CKD) Suicide Anesthesia complication Bleeding disorder Lung disease Hypertension Stroke Social History Smoking and tobacco/nicotine status: never used tobacco/nicotine Alcohol intake: current Alcohol intake frequency: few times a week Alcohol type: wine Vitals/I&O/Wt Last Vital Signs Temp 97.9 F 03/13/25 20:00 Pulse 121 H 03/13/25 19:45 Resp 18 03/13/25 19:45 BP 133/101 03/13/25 20:00 Pulse Ox 100 03/13/25 20:00 O2 Del Method Nasal Cannula 03/13/25 20:00 O2 Flow Rate 2 03/13/25 17:21 03/13/25 03/13/25 03/13/25 06:59 14:59 22:59 Intake Total 9.443 / 9.443 Output Total 450 / 450 Balance -440.557 / -440.557 Weight last 48 hrs Weight 59.3 kg Physical Exam Narrative: awake , alert , no edema PEERLA S1S2 RRR per report Lungs clear per report Abd soft , non tender No edema Data 03/13/25 19:37 03/13/25 16:33 Micro: Microbiology 03/13/25 16:50 Legionella Urinary Antigen - Final Unknown Source A&P Assessment and plan 1. Hyponatremia: 1. Hyponatremia: Likely hypovolemic due to poor p.o. intake, awaiting urine sodium and urine osmolality results. Sodium 120 on presentation, check BMP every 4 hours, awaiting next BMP, depending on next sodium results-will decide upon IV fluids.. - Goal correction of 6 to 8 mEq in 24-hour., Avoid rapid correction. - Asked RN to call me BMP results every 4 hours to me. 2. Acute respiratory failure, COVID-positive, 3. A-fib with RVR, on amiodarone 4. Metabolic acidosis, mild, monitor 5. History of hypertension: Lisinopril on hold Patient evaluated using audiovisual cart. Time spent 40 minutes. PDMP PDMP Reviewed: Not Reviewed Consult Attestations Medical Necessity Statement: per jose Coding Level of Care Code Acute Code for Chg Fwd Diagnoses Hyponatremia E87.1
[2025-03-13 20:29] LABS: Add Urine Microscopic? YES
[2025-03-13 20:32] LABS: Specific Gravity, Urine 1.045 (1.005-1.030)
--- NOTE | 2025-03-13 20:45 | PC.NURSE ---
Patient refused Remdesivir. Dr. Flanagan made aware.
[2025-03-13 20:53] LABS: Urine Random Sodium < 10 mmol/L
[2025-03-13 22:27] LABS: Lactic Acid level (Lactate) 4.1 mmol/L (0.5-2.2)
[2025-03-13 22:31] LABS: Anion Gap 22.3 (5-19); Blood Urea Nitrogen 17 mg/dL (8-23); Calcium 8.4 mg/dL (8.5-10.5); Carbon Dioxide 18 mmol/L (22-29); Chloride 85 mmol/L (98-107); Creatinine Clr Calc Pharmacy 42.3276; Glucose 321 mg/dL (65-115); Osmolality Calculated 266 mOsm/kg (285-295); Potassium 4.3 mmol/L (3.5-5.1); Sodium 121 mmol/L (136-145); Thyroid Stimulating Hormone 1.34 uIU/mL (0.27-4.20); Uric Acid 3.4 mg/dL (2.4-5.7)
[2025-03-13 23:29] LABS: Partial Thromboplastin Time 50.5 SECONDS (23.9-36.7)
[2025-03-13 23:37] LABS: Troponin 5 6HR 65.33 ng/L (0-10); Troponin 5 6HR Delta -12.67 ng/L (0-12)
[2025-03-14] VITALS (101 sets, daily range): BP systolic 105–158; BP diastolic 65–123; PULSE 76–144; RESP 12–34; TEMP 36.4–36.8; O2SAT 89–100
[2025-03-14 03:10] LABS: Hematocrit 35.1 % (36-47); Hemoglobin 11.60 g/dL (11.27-16.99); Mean Corpuscular HGB Conc 33.0 g/dL (30-55); Mean Corpuscular Hemoglobin 30.9 pg (27-33); Mean Corpuscular Volume 93.4 fl (85-98); Nucleated Red Blood Cells % 0 %; Platelet Count 222 10^3/cmm (157-399); Red Blood Count 3.76 10^6/uL (3.85-5.65); White Blood Count 19.31 10^3/uL (3.29-11.43)
[2025-03-14 03:29] LABS: Alanine Aminotransferase 71 U/L (0-33); Albumin Level 3.0 g/dL (3.5-5.2); Alkaline Phosphatase 108 U/L (35-105); Anion Gap 19.3 (5-19); Aspartate Amino Transferase 57 U/L (0-32); Blood Urea Nitrogen 16 mg/dL (8-23); Calcium 8.5 mg/dL (8.5-10.5); Carbon Dioxide 20 mmol/L (22-29); Chloride 88 mmol/L (98-107); Creatinine Clr Calc Pharmacy 42.3276; Globulin 3.8 g/dL (1.3-4.6); Glucose 181 mg/dL (65-115); Magnesium 2.1 mg/dL (1.7-2.3); Osmolality Calculated 262 mOsm/kg (285-295); Potassium 4.3 mmol/L (3.5-5.1); Sodium 123 mmol/L (136-145); Total Protein 6.8 g/dL (6.6-8.7)
[2025-03-14 05:52] LABS: Partial Thromboplastin Time 67.5 SECONDS (23.9-36.7)
--- NOTE | 2025-03-14 08:28 | PC.PHAR ---
Pt unable to verify current medications. Med rec completed with list from [facility] with last fill date and day supply.
[2025-03-14] MEDS: piperacillin-tazobactam 3.375 GM in sodium chloride 0.9% (plus) 50 ML IV ×2 (08:38→15:46)
--- NOTE | 2025-03-14 09:18 | P.CONIM_ITS ---
<Statement entered by Yoandy Benavides M.D - 03/15/25 12:02> Patient was evaluated and cared for in conjunction with an advanced practice practitioner.? I personally examined the patient and reviewed the chart and all pertinent data including imaging, telemetry, and laboratory results.? I discussed the patient in detail with the advanced practice practitioner.? Please see? their note for complete consult note, testing results and agreed upon plan of care for the patient. Continue amiodarone. Add Cardizem gtt. We will also load with digoxin. A-fib triggered by underlying COVID infection. Continue anticoagulation. GENERAL: Patient is alert, awake and oriented x3. HEART: Irregularly irregular, tachycardia LUNGS: Diminished air entry bilaterally CENTRAL NERVOUS SYSTEM: Grossly nonfocal. EXTREMITIES: Lower extremities without edema bilaterally. Providers/Reason For Consult 2 Consulting Physician/Specialty*: Dr Benavides, cardiology Reason for Consult*: atrial fibrillation with RVR Requesting Physician: Amy Anderson MD Attending Physician: Amy Anderson MD Primary Care Provider: Riya Funk MD History of Present Illness History of Present Illness Dana Arias is a 89 year old female with past medical history of breast cancer, hypertension. She presented to an outside facility [facility] with symptoms of shortness of breath, new oxygen requirement. She had been on a trip in [place] and was just flying back when symptoms of laryngitis began. Workup at [facility] showed atrial fibrillation with RVR, bilateral pleural effusions, elevated troponin, D-dimer 0.89, she was COVID-positive, pulmonary embolism ruled out by CTA. Lactic acid 4.1, liver enzymes normal, TSH normal. She was started on a heparin infusion and amiodarone infusion. Lab obtained here shows BUN 16, creatinine 0.7, potassium 4.3, hyponatremic 123, BNP 11,318. Troponin series 78-> 65-> 65. She has not had any chest pain. Rate control is not been achieved with amiodarone infusion, consult requested for management of atrial fibrillation with RVR. We do not have results of any previous cardiac testing. Review of Systems 2 Const: Denies: fever(s), chills, change in weight, fatigue or diaphoresis Eyes: Denies: change in vision ENMT: Denies: epistaxis Card: Reports: dyspnea on exertion; Denies: chest pain, palpitations, irregular heart rhythm, edema, syncope, pre- syncope, orthopnea or leg pain with exertion Resp: Reports: dyspnea; Denies: productive cough or wheezing GI: Denies: nausea, vomiting, hematemesis, hematochezia or melena : Denies: hematuria Musc: Denies: extremity swelling Kurt/Lymph: Denies: easy bruising or easy bleeding Medications/Allergies Home Medications ?Medication ?Instructions ?Recorded ?Confirmed ?Last Taken ?Type acetaminophen 325 mg tablet 325 mg PO QID PRN Pain 03/14/25 Unknown History (Tylenol) amlodipine 5 mg tablet 5 mg PO DAILY 03/04/2003/14 Unknown History atenolol 50 mg tablet 50 mg PO DAILY 03/04/2002/15 Unknown History gabapentin 300 mg capsule 300 mg PO DAILY 03/04/20 Unknown History alendronate 70 mg tablet 70 mg PO Q7D 03/14/25 Unknown History alprazolam 0.25 mg tablet 0.25 mg PO DAILY PRN Anxiety 03/14/25 03/14/25 Unknown History ketoconazole 2 % topical cream See Rx Instructions .Ro catalina .COMPLEX 03/14/25 03/14/25 Unknown History levothyroxine 75 mcg tablet 75 mcg PO QAM 03/14/25 Unknown History lisinopril 20 mg tablet 20 mg PO BID 03/14/25 Unknown History Allergies Allergy/AdvReac Type Severity Reaction Status Date / Time tramadol Allergy Unknown Verified 03/13/25 17:31 Current Medications Generic Name Dose Route Start Last Admin Trade Name Brianq PRN Reason Stop Dose Admin Dexamethasone 6 mg 03/14/25 08:00 03/14/25 08:35 Dexamethasone 10 Mg/Ml Inj IVP 6 mg Q24H PAKO Administration Heparin Sodium/Sodium Chloride 25,000 unit in 500 mls @ 0 mls/hr 03/13/25 16:30 03/14/25 06:01 Heparin Drip IV 15.18 unit/kg/hr CONT PAKO 18 mls/hr Protocol Titration Per Protocol Amiodarone HCl/Dextrose 360 mg in 200 mls @ 0 mls/hr 03/13/25 18:30 03/14/25 07:05 Nexterone IV 0.5 mg/min .Q0M PAKO 16.67 mls/hr Protocol Administration Per Protocol Azithromycin 500 mg/ Sodium 250 mls @ 250 mls/hr 03/13/25 18:45 03/13/25 21:04 Chloride IV Infused Q24H PAKO Infusion Protocol Sodium Chloride 1,000 mls @ 75 mls/hr 03/13/25 23:45 03/14/25 09:17 Sodium Chloride 0.9% IV 75 mls/hr .[id number] PAKO Infusion Piperacillin Sod/Tazobactam 50 mls @ 12.5 mls/hr 03/14/25 08:00 03/14/25 08:38 Sod 3.375 gm/ Sodium Chloride IV 12.5 mls/hr Q8H PAKO Administration Pantoprazole Sodium 40 mg 03/14/25 09:00 03/14/25 08:[address] 40 Mg Tablet PO 40 mg DAILY PAKO Administration PFSH Acute 2 PFSH: Medical History Osteoporosis Hypothyroidism Hypertension Breast cancer History of nonmelanoma skin cancer Surgical History Left wrist fracture 1943 History of tonsillectomy 194 History of total knee arthroplasty (07/2013) History of left mastectomy (11/15/12) Left mastectomy with axillary sentinel lymph node biopsy History of colonoscopy (2006) 2006 Hx of bilateral cataract extraction (2010) Family History Other Cancer Denies family history of Diabetes CAD (coronary artery disease) Clotting disorder Dementia Hyperlipidemia Psychiatric illness Chronic kidney disease (CKD) Suicide Anesthesia complication Bleeding disorder Lung disease Hypertension Stroke Social History Smoking and tobacco/nicotine status: never used tobacco/nicotine Alcohol intake: current Alcohol intake frequency: few times a week Alcohol type: wine Vitals/I&O/Wt Last Vital Signs Temp 97.8 F 03/14/25 07:00 Pulse 119 H 03/14/25 07:00 Resp 25 H 03/14/25 07:00 BP 142/90 03/14/25 07:00 Pulse Ox 99 03/14/25 07:00 O2 Del Method Nasal Cannula 03/14/25 07:00 O2 Flow Rate 2 03/14/25 07:00 03/13/25 03/14/25 03/14/25 22:59 06:59 14:59 Intake Total 499.443 / 907.317 407.874 / 907.317 286 / 286 Output Total 450 / 750 300 / 750 Balance 49.443 / 157.317 107.874 / 157.317 286 / 286 Weight last 48 hrs Weight 135 lb 9.349 oz Weight 135 lb 9.349 oz Weight 130 lb 11.746 oz Physical Exam 2 Const: COMMON NORMALS: no acute distress and patient oriented x3 Chest: COMMONS NORMALS: normal inspection of the chest and normal palpation of entire chest wall CHEST: Yes Symmetrical chest wall rise Resp: COMMON NORMALS: normal respiratory effort, No retractions and No use of accessory muscles EFFORT & INSPECTION: Yes symmetric chest movement and Yes Actively coughing productive (Lan sputum), strong and wheezy AUSCULTATION: c rackles Laterality: bilateral and posterior Cardio: COMMON NORMALS: S1 normal heart sound present, S2 normal heart sound present, No gallops present (Cardio), No clicks present (Cardio), No murmurs present (Cardio) and No rub (Cardio) RATE: tachycardic RHYTHM: abnormal rhythm irregularly irregular HEART SOUNDS: S1 normal heart sound present and S2 normal heart sound present PERIPHERAL PULSES: radial pulses present, posterior tibial pulses present and dorsalis pedis present Extremity: GENERAL: No edema Neuro: COMMON NORMALS: patient oriented x3 and moves all extremities Psych: COMMON NORMALS: mental status grossly normal and cooperative Data 03/14/25 03:00 03/14/25 03:00 Micro: Microbiology 03/13/25 17:20 Gram Stain - Final Sputum - Expectorated Sputum 03/13/25 22:30 Gram Stain - Final Sputum - Expectorated Sputum 03/13/25 16:50 Legionella Urinary Antigen - Final Unknown Source A&P Assessment and plan 1. Atrial fibrillation: 2. Hyponatremia: 3. COVID: Plan: Will focus on rate control of atrial fibrillation, adding diltiazem infusion and digoxin load starting with 500 mcg IV, 250 mg every 6 hours x 2 doses. Awaiting echocardiogram to be performed once rate control is improved. PDMP PDMP Reviewed: Not Reviewed Coding Level of Care Code Acute Code for g Fwd Diagnoses Atrial fibrillation I48.91 Hyponatremia E87.1 COVID U07.1
[2025-03-14] MEDS: digoxin 250 mcg/ml INJ 2 mL 500 MCG IVP (09:28)
[2025-03-14] MEDS: dilTIAZem 100 MG in sodium chloride 0.9% (add-van) 100 ML IV (09:28)
--- NOTE | 2025-03-14 09:39 | PM.PN ---
Subjective Subjective: Seen and examined. Patient is feeling better less short of breath. No nausea vomiting no diarrhea no headaches. Patient has irregular heart rhythm. No edema Medications: Reviewed: Yes Medication Review Details: Current Medications Acetaminophen (Acetaminophen 325 Mg Tablet) 650 mg PO Q6H PRN PRN Reason: MILD PAIN Albuterol/Ipratropium (Ipratropium-Albuterol 3 Ml Neb) 3 ml INHALATION Q4H.RESPIRATORY PRN PRN Reason: SHORTNESS OF BREATH Dexamethasone (Dexamethasone 10 Mg/Ml Inj) 6 mg IVP Q24H [facility] Last Admin: 03/14/25 08:35 Dose: 6 mg Digoxin (Digoxin 250 Mcg/Ml Inj 2 Ml) 250 mcg IVP NOW ONE Stop: 03/14/25 15:01 Digoxin (Digoxin 250 Mcg/Ml Inj 2 Ml) 250 mcg IVP NOW ONE Stop: 03/14/25 21:01 Digoxin (Digoxin 125 Mcg Tablet) 125 mcg PO DAILY PAKO Heparin Sodium (Porcine) (Heparin 5,000 Unit/Ml Inj 1 Ml) 0 unit IVP PRN PRN; Protocol PRN Reason: Heparin Weight Based Protocol -Subsequent Bolus Heparin Sodium/Sodium Chloride (Heparin Drip) 25,000 unit in 500 mls @ 0 mls/hr IV CONT PAKO; Protocol Last Titration: 03/14/25 06:01 Dose: 15.18 unit/kg/hr, 18 mls/hr Amiodarone HCl/Dextrose (Nexterone) 360 mg in 200 mls @ 0 mls/hr IV .Q0M [facility]; Protocol Last Admin: 03/14/25 07:05 Dose: 0.5 mg/min, 16.67 mls/hr Azithromycin 500 mg/ Sodium (Chloride) 250 mls @ 250 mls/hr IV Q24H [facility]; Protocol Last Infusion: 03/13/25 21:04 Dose: Infused Remdesivir 100 mg/ Sodium (Chloride) 100 mls @ 100 mls/hr IV Q24H [facility] Stop: 03/17/25 18:59 Sodium Chloride (Sodium Chloride 0.9%) 1,000 mls @ 75 mls/hr IV .[id number] [facility] Last Infusion: 03/14/25 09:17 Dose: 75 mls/hr Piperacillin Sod/Tazobactam (Sod 3.375 gm/ Sodium Chloride) 50 mls @ 12.5 mls/hr IV Q8H [facility] Last Admin: 03/14/25 08:38 Dose: 12.5 mls/hr Diltiazem HCl 100 mg/ Sodium (Chloride) 100 mls @ 0 mls/hr IV .Q0M [facility]; Protocol Last Admin: 03/14/25 09:28 Dose: 5 mg/hr, 5 mls/hr Ondansetron HCl (Ondansetron 2 Mg/Ml Sdv 2 Ml) 4 mg IVP Q6H PRN PRN Reason: NAUSEA AND VOMITING Pantoprazole Sodium (Pantoprazole Dr 40 Mg Tablet) 40 mg PO DAILY [facility] Last Admin: 03/14/25 08:35 Dose: 40 mg Vitals/I&O/Wt Last Vital Signs Temp 97.8 F 03/14/25 07:00 Pulse 116 H 03/14/25 09:32 Resp 18 03/14/25 09:32 BP 142/90 03/14/25 07:00 Pulse Ox 96 03/14/25 09:32 O2 Del Method Nasal Cannula 03/14/25 09:32 O2 Flow Rate 2 03/14/25 09:32 03/13/25 03/14/25 03/14/25 22:59 06:59 14:59 Intake Total 499.443 / 499.443 407.874 / 907.317 286 / 286 Output Total 450 / 450 300 / 750 Balance 49.443 / 49.443 107.874 / 157.317 286 / 286 Weight last 48 hrs Weight 61.5 kg Weight 61.5 kg Weight 59.3 kg Physical Exam Narrative: Elderly lady in bed using nasal cannula oxygen. Sitting up. Comfortable vital signs noted. HEENT normocephalic atraumatic Neck is supple Lungs are clear. Heart irregular tachycardic. Abdomen is soft positive bowel sounds. Extremities no edema Neuro awake alert oriented interactive moving Data 03/14/25 03:00 03/14/25 03:00 Micro: Microbiology 03/13/25 16:50 Bacterial Antigens - Final Urine,Voided 03/13/25 17:20 Gram Stain - Final Sputum - Expectorated Sputum 03/13/25 22:30 Gram Stain - Final Sputum - Expectorated Sputum 03/13/25 16:50 Legionella Urinary Antigen - Final Unknown Source A&P Assessment and plan 1. Hyponatremia: 89 years lady history of breast cancer nonmelanoma skin cancer, hypertension hypothyroidism and osteoporosis. Patient was admitted yesterday for A-fib with RVR put on a Cardizem drip and amiodarone. Patient was found to have hyponatremia and COVID 19 positive. She was seen by my partner yesterday. Electrolytes bilaterally patient was put on very gentle IV fluids. Serum sodium improved to 123. Patient remains hyperkalemic with a metabolic acidosis. Patient had a lactic acidosis yesterday. 1. Hyponatremia: Low urine sodium. Increase IV fluid rate and monitor chemistries every 6 hours. Patient also notes steroids Normal TSH. Free water restrict. 2. Increased anion gap metabolic acidosis from lactic acidosis 3. A-fib on diltiazem and amiodarone. Monitor digoxin levels 4. Patient on antibiotics with Zosyn azithromycin Patient on remdesivir for COVID Plan: IV fluids monitor chemistries. Antibiotics. PDMP PDMP Reviewed: Not Reviewed Attestations Medical Necessity Statement*: Hyponatremia infection A-fib with RVR Time Spent in Patient Care: 16 - 35 minutes (>than 50% of time spent in counselling and/or direct pt care on unit). Coding Level of Care Code Acute Code for [facility] Diagnoses Hyponatremia E87.1
[2025-03-14 09:52] LABS: Hematocrit 37.4 % (36-47); Hemoglobin 12.10 g/dL (11.27-16.99); Mean Corpuscular HGB Conc 32.4 g/dL (30-55); Mean Corpuscular Hemoglobin 31.9 pg (27-33); Mean Corpuscular Volume 98.7 fl (85-98); Nucleated Red Blood Cells % 0 %; Platelet Count 241 10^3/cmm (157-399); Red Blood Count 3.79 10^6/uL (3.85-5.65); White Blood Count 25.79 10^3/uL (3.29-11.43)
[2025-03-14 10:14] LABS: Anion Gap 22.3 (5-19); Blood Urea Nitrogen 16 mg/dL (8-23); Calcium 8.3 mg/dL (8.5-10.5); Carbon Dioxide 18 mmol/L (22-29); Chloride 85 mmol/L (98-107); Creatinine Clr Calc Pharmacy 43.0029; Glucose 228 mg/dL (65-115); Osmolality Calculated 260 mOsm/kg (285-295); Potassium 4.3 mmol/L (3.5-5.1); Sodium 121 mmol/L (136-145)
--- NOTE | 2025-03-14 11:34 | PC.NURSE ---
Patient refused remdesivir medication. Dr. Anderson was contacted and she ordered to stop medication.
--- NOTE | 2025-03-14 11:53 | P.PN_ITS ---
Subjective 2 Subjective: seen this am subjectively feeling slightly better wbc 25 K hb 12.10 sodium 121 today lactic acid 2.8 last night on 2L NC still in afib rvr, tachycardic Positive for rhinovirus and covid Vitals/I&O/Wt Last Vital Signs Temp 97.8 F 03/14/25 07:00 Pulse 113 H 03/14/25 10:45 Resp 33 H 03/14/25 10:45 BP 144/92 03/14/25 10:45 Pulse Ox 100 03/14/25 10:45 O2 Del Method Nasal Cannula 03/14/25 10:45 O2 Flow Rate 2 03/14/25 10:45 03/13/25 03/14/25 03/14/25 22:59 06:59 14:59 Intake Total 499.443 / 499.443 407.874 / 907.317 526 / 526 Output Total 450 / 450 300 / 750 300 / 300 Balance 49.443 / 49.443 107.874 / 157.317 226 / 226 Weight last 48 hrs Weight 61.5 kg Weight 61.5 kg Weight 59.3 kg Physical Exam 2 Narrative: General: Alert oriented x3, patient seen sitting up in bed appearing comfortable. On 2 the nasal cannula saturating 99% at this time. HEENT: Normocephalic, atraumatic, EOMI, Cardio: Irregularly irregular Respiratory: Clear to auscultation bilaterally, no wheezes no rhonchi no crackles GI: Abdomen soft, nontender, nondistended, bowel sounds + Extremities: No edema bilateral lower extremities. Data 03/14/25 09:43 03/14/25 09:43 Micro: Microbiology 03/13/25 17:20 Gram Stain - Final Sputum - Expectorated Sputum Sputum Culture - Preliminary 03/13/25 16:50 Bacterial Antigens - Final Urine,Voided 03/13/25 22:30 Gram Stain - Final Sputum - Expectorated Sputum 03/13/25 16:50 Legionella Urinary Antigen - Final Unknown Source A&P Assessment and plan 1. Atrial fibrillation: 2. COVID: 3. Supplemental oxygen dependent: 4. Cough: 5. Hyponatremia: 6. High anion gap: 7. Elevated liver enzymes: 8. Leukocytosis: 9. Elevated troponin: 10. Lactic acidosis: Plan: #Atrial fibrillation with RVR #Enterra rhinovirus positive #Lactic acidosis #Leukocytosis #Hyponatremia #Supplemental oxygen requirement #Hypertension #Hyperlipidemia #Cough, shortness of breath #COVID-positive #Recent travel #Hypothyroidism ? Reviewed all of data from [facility] ? Will check repeat BMP, CBC, lactic acid, phosphorus, ABG, troponins, chest x- ray, BNP, respiratory panel, EKG ? Continue amiodarone drip ? Continue on heparin drip for new onset A-fib. ? Consult cardiology ? Discussed with pharmacy regarding remdesivir. Patient meets criteria for remdesivir at this time. There is no contraindication to being on amiodarone. She has new supplemental oxygen requirement therefore we will go ahead and order that for the patient. ? Check sputum culture Gram stain ? Check blood cultures ? Check chest x-ray, BNP ? Patient does not appear to be in heart failure clinically. ? Check echocardiogram ? Patient denies chest pain ? CRP elevated will trend. ? CT has ruled out PE at [facility] ? Sodium 121 at [facility]. Will recheck BMP. ? Check serum, urine osmolality, urine sodium ? Check BMP every 4 hours ? Consult nephrology - Will need to confirm home meds - Will wait to order iV fluids till urine sodium results - Order dexamethasone 6 IV daily Full code DVT prophylaxis: On heparin drip at this time 03/14/2025 Patient positive for enterorhinovirus and COVID Echocardiogram pending Patient met criteria for remdesivir therefore was given however patient's family does not want her to have any more doses of this. We will stop it per family request. Echocardiogram pending Patient remains in A-fib with RVR. Loaded with digoxin per cardiology. On Cardizem drip. BNP 11,000. Patient does not appear to be in overt heart failure clinically. She appears dehydrated instead. Lactic acid 2.8 overnight. We will repeat. Patient on gentle IV fluid hydration by nephrology. Sodium remains low at 121. Urine sodium less than 10. Osmolality 260 calculated. Serum osmolality pending. Troponins elevated but negative at 6 hours -12. CRP 213. Patient shortness of breath cough is multifactorial secondary to Enterra rhinovirus and possibly symptomatic COVID. Cardiology has been consulted. Will appreciate recommendations. Blood pressure stable. Patient's oxygen is trended down to 2 L nasal cannula. She will require DuoNeb every 6 hours. Discussed with respiratory therapy. Experiencing wheezing and rhonchi this morning. Continue dexamethasone 6 IV daily WBC count 25,000 possibly reactive to steroids versus to underlying infection or occult pneumonia. Continue Zosyn at this time. Chest x-ray did show bilateral pleural effusions mild pulmonary vascular congestion. Continue heparin drip. PDMP PDMP Reviewed: Not Reviewed Attestations 2 Medical Necessity Statement*: afib rvr, covid infection, needs > 2 midnight stay hyponatremia Diagnoses Atrial fibrillation I48.91 COVID U07.1 Supplemental oxygen dependent Z99.81 Cough R05.9 Hyponatremia E87.1 High anion gap E87.8 Elevated liver enzymes R74.8 Leukocytosis D72.829 Elevated troponin R79.89 Lactic acidosis E87.20
[2025-03-14 13:02] LABS: Partial Thromboplastin Time 52.3 SECONDS (23.9-36.7)
[2025-03-14 13:07] LABS: Blood Urea Nitrogen 15 mg/dL (8-23); Calcium 8.7 mg/dL (8.5-10.5); Carbon Dioxide 18 mmol/L (22-29); Chloride 85 mmol/L (98-107); Creatinine Clr Calc Pharmacy 43.0029; Glucose 137 mg/dL (65-115); Osmolality Calculated 257 mOsm/kg (285-295); Sodium 122 mmol/L (136-145)
[2025-03-14] MEDS: heparin 5,000 unit/mL INJ 1 mL IVP ×2 (13:15→20:51)
[2025-03-14 13:16] LABS: Anion Gap 23.2 (5-19); Potassium 4.2 mmol/L (3.5-5.1)
[2025-03-14] MEDS: digoxin 250 mcg/ml INJ 2 mL IVP ×2 (15:46→21:27)
--- NOTE | 2025-03-14 16:19 | USCV_ITS ---
January Age: 89 Gender: F : 1935 Exam Date: 03/13/2025 17:41 Ordering Phys: Amy Anderson MD Technologist: ALONDRA Exam Location: [facility] [place] Indication: Afib, COVID ISOLATION, Dr. Anderson ordered echo to be performed in spite of 113bpm BP: 113 / 91 HR: 113 Rhythm: Atrial fibrillation Technical Quality: Adequate MEASUREMENTS (Male / Female) Normal Values 2D ECHO LV Diastolic Diameter PLAX 3.9 cm 4.2 - 5.9 / 3.9 - 5.3 cm IVS Diastolic Thickness 0.9 cm 0.6 - 1.0 / 0.6 - 0.9 cm IVS Systolic Thickness 1.1 cm LVPW Diastolic Thickness 0.8 cm 0.6 - 1.0 / 0.6 - 0.9 cm LVPW Systolic Thickness 1.4 cm LVOT Diameter 1.7 cm LV Ejection Fraction 2D Teich 67.7 % LV Ejection Fraction MOD 4C 64.9 % LV Ejection Fraction MOD 2C 75.0 % LV Ejection Fraction 2C AL 74.2 % LA Diameter 3.0 cm LA Sys Volume AL 83.3 cm cubed LA Sys Volume Index AL 51.2 cm cubed/m squared Aorta at Sinotubular Diameter 2.7 cm IVC Diameter 1.4 cm M-MODE LA Ao Ratio MM 1.8 AV Cusp Separation MM 1.4 cm DOPPLER AV Peak Velocity 142.0 cm/s LVOT Peak Velocity 92.0 cm/s AV Area Cont Eq vti 1.7 cm squared AV Area Cont Eq pk 1.5 cm squared MV Peak Velocity 121.0 cm/s MV Area PHT 4.0 cm squared Mitral E to A Ratio 0.0 TV Peak Velocity 300.7 cm/s TR Peak Velocity 320.0 cm/s TR Peak Gradient 41.0 mmHg TV Peak E Velocity 73.0 cm/s PV Peak Velocity 77.0 cm/s FINDINGS Left Ventricle Left ventricle is normal in size. LV systolic function is normal with EF of 60 to 65%. No regional wall motion normalities are seen. Right Ventricle Normal in size and function Right Atrium Dilated Left Atrium Dilated Mitral Valve Structurally normal valve. Mild mitral regurgitation. Aortic Valve Structurally normal aortic valve. No significant stenosis or regurgitation. Tricuspid Valve Mild to moderate tricuspid regurgitation. RVSP is 50-55 mmHg. This is consistent with moderate pulmonary hypertension. Pulmonic Valve Not well visualized Pericardium Normal Aorta Normal in size IVC Appears to be normal CONCLUSIONS LV systolic function is normal with EF of 60 to 65%. Biatrial enlargement. Mild mitral regurgitation. Mild to moderate tricuspid regurgitation Moderate pulmonary hypertension Yoandy Benavides MD (Electronically Signed) Final Date: 17 March 2025 15:04 S
[2025-03-14] MEDS: heparin drip 25,000 UNIT/500 ML PREMIX 19 UNIT IV (16:56)
[2025-03-14 18:14] LABS: Blood Urea Nitrogen 16 mg/dL (8-23); Calcium 8.2 mg/dL (8.5-10.5); Carbon Dioxide 14 mmol/L (22-29); Chloride 87 mmol/L (98-107); Creatinine Clr Calc Pharmacy 43.0029; Glucose 178 mg/dL (65-115); Osmolality Calculated 260 mOsm/kg (285-295); Sodium 122 mmol/L (136-145)
[2025-03-14 18:16] LABS: Anion Gap 25.7 (5-19); Potassium 4.7 mmol/L (3.5-5.1)
--- NOTE | 2025-03-14 18:21 | PC.NURSE ---
Patient's ankles are becoming swollen with 1+ pitting edema. Dr. Sawyer was contacted for Q4Hr BMP sodium level and to report findings. Doctor ordered 20 mg of furosemide and to decrease the NS fluids to 50 mls/hr.
[2025-03-14] MEDS: FUROsemide 10 mg/mL SDV 2mL 20 MG IVP (18:44)
[2025-03-14] MEDS: dilTIAZem 100 MG in sodium chloride 0.9% (add-van) 100 ML 10 MG IV (18:44)
--- NOTE | 2025-03-14 18:55 | CTR_ITS ---
PROCEDURE INFORMATION: Exam: CT Chest Without Contrast; Diagnostic Exam date and time: 03/14/2025 9:42 PM Age: 89 years old Clinical indication: Other: Leukocytosis; Shortness of breath; Additional info: Leukocytosis, R/O underlying infection TECHNIQUE: Imaging protocol: Diagnostic computed tomography of the chest without contrast. Radiation optimization: All CT scans at this facility use at least one of these dose optimization techniques: automated exposure control; mA and/or kV adjustment per patient size (includes targeted exams where dose is matched to clinical indication); or iterative reconstruction. COMPARISON: CR (CHEST, ) 03/13/2025 5:55 PM RADIATION DOSE METRICS: Total DLP (mGy-cm): 555.42 FINDINGS: Lungs: Numerous focal hazy opacities scattered throughout both lungs with areas of consolidation in the lateral segment of the middle lobe and in the left posterior basal segment. Small bilateral pleural effusions with additional bibasilar compressive atelectasis. Pleural spaces: See Lungs finding. Heart: Heart is mildly enlarged, predominantly due to the atria. Coronary arteries: Mild calcified plaque in the coronary arteries. Lymph nodes: Unremarkable. No enlarged lymph nodes. Vasculature: Unremarkable. No aortic aneurysm. Bones/joints: Several left lateral ribs are blurred by motion. No convincing recent fracture. Soft tissues: Unremarkable. PROCEDURE INFORMATION: Exam: CT Abdomen And Pelvis Without Contrast Exam date and time: 03/14/2025 9:42 PM Age: 89 years old Clinical indication: Other: Leukocytosis; Shortness of breath; Additional info: Leukocytosis, R/O underlying infection TECHNIQUE: Imaging protocol: Computed tomography of the abdomen and pelvis without contrast. Radiation optimization: All CT scans at this facility use at least one of these dose optimization techniques: automated exposure control; mA and/or kV adjustment per patient size (includes targeted exams where dose is matched to clinical indication); or iterative reconstruction. COMPARISON: CR (CHEST, ) 03/13/2025 5:55 PM RADIATION DOSE METRICS: Total DLP (mGy-cm): 555.42 FINDINGS: Liver: The liver is enlarged but is normal in density. Gallbladder and biliary ducts: Normal. No calcified stones. No ductal dilation. Pancreas: Normal. No ductal dilation. Spleen: The spleen is normal. Adrenal glands: Normal. No mass. Kidneys and ureters: Normal. No hydronephrosis. Stomach and bowel: Unremarkable. No obstruction. No mucosal thickening. Appendix: No evidence of appendicitis. Intraperitoneal space: Unremarkable. No free air. No significant fluid collection. Vasculature: Atherosclerotic abdominal aorta is normal in size. Lymph nodes: Unremarkable. No enlarged lymph nodes. Urinary bladder: Unremarkable as visualized. Reproductive: The uterus is not well seen and is either obscured by adjacent bowel or is resected. Bones/joints: Chronic 40% L2 inferior endplate fracture with mild bony retropulsion. Chronic internally fixed right intertrochanteric fracture. Soft tissues: Unremarkable. CT/[place] [id number] IMPRESSION: 1. Multifocal bilateral airspace opacities. The pattern suggest pneumonitis. 2. Small pleural effusions with basilar atelectasis. IMPRESSION: 1. No acute abdominopelvic findings. 2. Hepatomegaly. 3. Other chronic findings as described
[2025-03-14 19:04] LABS: Glucose Urine UA Negative (Normal); Nitrate Urine Negative (Negative); Specific Gravity, Urine 1.022 (1.005-1.030)
[2025-03-14 19:09] LABS: Add Urine Microscopic? YES
--- NOTE | 2025-03-14 19:11 | PC.NURSE ---
Brenda ULLOA was asked about changing Amiodarone drip to PO Amiodarone after the 18 hours are over per protocol. Brenda stated to contact hospitalist once patient's rhythm has converted to Sinus Rhythm or heart rate becomes bradycardic.
[2025-03-14 19:33] LABS: Urine Random Sodium < 10 mmol/L
[2025-03-14 20:21] LABS: Partial Thromboplastin Time 41.0 SECONDS (23.9-36.7)
[2025-03-14 21:01] LABS: ABG PCO2 29.7 mmHg (35-45); ABG PH Result 7.41 (7.35-7.45); Alveolar-Arterial Oxygen Gradi 5.8 mmHg (5-10); Arterial Blood Gas Hematocrit 37.5 % (37-47); Blood Gas Operator Identificat SAM; Blood Gas Sample Site Brachial, right; Blood Gas Sample Type Arterial; Carboxyhemoglobin 0.6 %THgb (0.4-20.1); Glucose Level-ABG 187.0 mg/dL (70-115); HCO3 ABG 18.6 mmol/L (22-26); Ionized Calcium Level - ABG 1.0 mmol/L (1.1-1.4); Methemoglobin 0.2 % (0.4-1.5); Oxygen Saturation ABG 94.5; PO2 ABG 67.6 mmHg (80.0-100.0); PO2 FiO2 Ratio Arterial Blood 321; Potassium Level - ABG 3.8 mmol/L (3.5-5.0); Sodium Level - ABG 123.0 mmol/L (131-143)
[2025-03-14 21:55] LABS: Anion Gap 20.0 (5-19); Blood Urea Nitrogen 15 mg/dL (8-23); Calcium 8.1 mg/dL (8.5-10.5); Carbon Dioxide 18 mmol/L (22-29); Chloride 87 mmol/L (98-107); Creatinine Clr Calc Pharmacy 43.0029; Glucose 174 mg/dL (65-115); Osmolality Calculated 257 mOsm/kg (285-295); Potassium 4.0 mmol/L (3.5-5.1); Sodium 121 mmol/L (136-145)
[2025-03-14 22:09] LABS: Lactic Sepsis W/Reflex 4.0 mmol/L (0.5-2.2)
--- NOTE | 2025-03-14 22:45 | PC.NURSE ---
BMP results called to Dr. Sawyer. New telephone order for 150 meq sodium bicarb in normal saline at 60 ml/hr.
[2025-03-14 23:21] LABS: Reflex Lactate Order REFLEX LACTIC ORDERD
[2025-03-15] VITALS (89 sets, daily range): BP systolic 98–167; BP diastolic 56–117; PULSE 79–136; RESP 14–41; TEMP 36.3–37; O2SAT 90–98
[2025-03-15 00:57] LABS: Anion Gap 20.7 (5-19); Blood Urea Nitrogen 15 mg/dL (8-23); Calcium 7.8 mg/dL (8.5-10.5); Carbon Dioxide 17 mmol/L (22-29); Chloride 88 mmol/L (98-107); Creatinine Clr Calc Pharmacy 43.0029; Glucose 174 mg/dL (65-115); Osmolality Calculated 259 mOsm/kg (285-295); Potassium 3.7 mmol/L (3.5-5.1); Sodium 122 mmol/L (136-145)
--- NOTE | 2025-03-15 01:15 | PC.NURSE ---
Dr. Sawyer called with 0000 BMP results. New order for 20 mg lasix IVP ONCE and 20 meq potassium PO ONCE.
[2025-03-15 01:16] LABS: Lactic Acid level (Lactate) 4.1 mmol/L (0.5-2.2)
[2025-03-15] MEDS: FUROsemide 10 mg/mL SDV 2mL 20 MG IVP (02:09)
[2025-03-15 02:29] LABS: Hematocrit 36.6 % (36-47); Hemoglobin 12.10 g/dL (11.27-16.99); Mean Corpuscular HGB Conc 33.1 g/dL (30-55); Mean Corpuscular Hemoglobin 31.1 pg (27-33); Mean Corpuscular Volume 94.1 fl (85-98); Nucleated Red Blood Cells % 0 %; Platelet Count 266 10^3/cmm (157-399); Red Blood Count 3.89 10^6/uL (3.85-5.65)
[2025-03-15 02:48] LABS: Alanine Aminotransferase 93 U/L (0-33); Albumin Level 3.3 g/dL (3.5-5.2); Alkaline Phosphatase 108 U/L (35-105); Aspartate Amino Transferase 73 U/L (0-32); Blood Urea Nitrogen 14 mg/dL (8-23); Calcium 8.1 mg/dL (8.5-10.5); Carbon Dioxide 18 mmol/L (22-29); Chloride 90 mmol/L (98-107); Creatinine Clr Calc Pharmacy 43.0029; Globulin 3.6 g/dL (1.3-4.6); Glucose 151 mg/dL (65-115); Magnesium 2.0 mg/dL (1.7-2.3); Osmolality Calculated 263 mOsm/kg (285-295); Sodium 125 mmol/L (136-145); Total Protein 6.9 g/dL (6.6-8.7)
[2025-03-15 02:54] LABS: Anion Gap 20.9 (5-19); Potassium 3.9 mmol/L (3.5-5.1)
[2025-03-15 02:55] LABS: Partial Thromboplastin Time 205.9 SECONDS (23.9-36.7)
[2025-03-15 03:08] LABS: Slide Review Slide Review Perform
[2025-03-15 03:09] LABS: White Blood Count 35.27 10^3/uL (3.29-11.43)
[2025-03-15 05:46] LABS: Partial Thromboplastin Time 56.0 SECONDS (23.9-36.7)
[2025-03-15] MEDS: dilTIAZem 100 MG in sodium chloride 0.9% (add-van) 100 ML 7.5 MG IV (05:52)
[2025-03-15 06:05] LABS: Anion Gap 21.1 (5-19); Blood Urea Nitrogen 14 mg/dL (8-23); Calcium 8.0 mg/dL (8.5-10.5); Carbon Dioxide 20 mmol/L (22-29); Chloride 90 mmol/L (98-107); Creatinine Clr Calc Pharmacy 38.7978; Glucose 137 mg/dL (65-115); Osmolality Calculated 267 mOsm/kg (285-295); Potassium 4.1 mmol/L (3.5-5.1); Sodium 127 mmol/L (136-145)
[2025-03-15] MEDS: piperacillin-tazobactam 3.375 GM in sodium chloride 0.9% (plus) 50 ML IV ×3 (08:40→15:59)
--- NOTE | 2025-03-15 08:50 | P.PN_ITS ---
<Statement entered by Yoandy Benavides M.D - 03/20/25 07:44> Patient was cared for in conjunction with an advanced practice practitioner.? I reviewed the chart and all pertinent data including imaging, telemetry, and laboratory results.? I discussed the patient in detail with the advanced practice practitioner.? Please see?their note for progress note, testing results and agreed upon plan of care for the patient. Subjective 2 Subjective: She has remained stable overnight. She remains in atrial fibrillation but rate controlled, will switch her to oral amiodarone and diltiazem today. Continue digoxin. Check dig level tomorrow. Vitals/I&O/Wt Last Vital Signs Temp 98.6 F 03/15/25 08:00 Pulse 90 03/15/25 14:46 Resp 28 H 03/15/25 14:00 BP 167/86 03/15/25 14:00 Pulse Ox 96 03/15/25 14:00 O2 Del Method Room Air 03/15/25 14:00 O2 Flow Rate 2 03/14/25 10:45 03/14/25 03/15/25 03/15/25 22:59 06:59 14:59 Intake Total 1311.620 / 4377.112 1795.292 / 4377.112 818.743 / 818.743 Output Total 600 / 1400 500 / 1400 1000 / 1000 Balance 711.620 / 2977.112 1295.292 / 2977.112 -181.257 / -181.257 Weight last 48 hrs Weight 140 lb 3.424 oz Weight 140 lb 3.424 oz Weight 135 lb 9.349 oz Weight 135 lb 9.349 oz Weight 130 lb 11.746 oz Physical Exam 2 Const: COMMON NORMALS: no acute distress and patient oriented x3 Chest: COMMONS NORMALS: normal inspection of the chest and normal palpation of entire chest wall CHEST: Yes Symmetrical chest wall rise Resp: COMMON NORMALS: normal respiratory effort, No retractions, No use of accessory muscles and clear to auscultation bilaterally EFFORT & INSPECTION: Yes symmetric chest movement AUSCULTATION: clear to auscultation bilaterally Cardio: COMMON NORMALS: S1 normal heart sound present, S2 normal heart sound present, No gallops present (Cardio), No clicks present (Cardio), No murmurs present (Cardio) and No rub (Cardio) RHYTHM: abnormal rhythm irregularly irregular HEART SOUNDS: S1 normal heart sound present and S2 normal heart sound present PERIPHERAL PULSES: radial pulses present, posterior tibial pulses present and dorsalis pedis present Neuro: COMMON NORMALS: patient oriented x3 and moves all extremities Psych: COMMON NORMALS: mental status grossly normal and cooperative Data 03/15/25 02:19 03/15/25 13:39 Micro: Microbiology 03/15/25 13:39 Blood Culture - Preliminary Blood SPECIMEN COLLECTED 03/15/25 12:18 Blood Culture - Preliminary Blood SPECIMEN COLLECTED 03/15/25 10:20 Stool Lactoferrin - Final Stool 03/13/25 22:30 Gram Stain - Final Sputum - Expectorated Sputum Sputum Culture - Preliminary 03/13/25 17:20 Gram Stain - Final Sputum - Expectorated Sputum Sputum Culture - Final A&P Assessment and plan 1. Atrial fibrillation: 2. Elevated troponin: 3. Elevated liver enzymes: 4. COVID: Plan: Will switch to oral amiodarone and diltiazem, continue digoxin. Renal function normal. Noted elevated liver enzymes, WBC. Blood pressure well- controlled without hypotension. Continue heparin infusion. PDMP PDMP Reviewed: Not Reviewed Attestations 2 Medical Necessity Statement*: Atrial fibrillation with RVR Coding Level of Care Code Acute Code for [facility] Diagnoses Atrial fibrillation I48.91 Elevated troponin R79.89 Elevated liver enzymes R74.8 COVID U07.1
--- NOTE | 2025-03-15 09:29 | P.PN_ITS ---
Subjective 2 Subjective: Seen and examined. Patient having diarrhea. Patient coughing patient feeling better. No nausea. No vomiting poor appetite. Improving chest pain. Medications: Reviewed: Yes Medication Review Details: Current Medications Acetaminophen (Acetaminophen 325 Mg Tablet) 650 mg PO Q6H PRN PRN Reason: MILD PAIN Albuterol/Ipratropium (Ipratropium-Albuterol 3 Ml Neb) 3 ml INHALATION Q4H.RESPIRATORY PRN PRN Reason: SHORTNESS OF BREATH Last Admin: 03/14/25 21:08 Dose: 3 ml Dexamethasone (Dexamethasone 10 Mg/Ml Inj) 6 mg IVP Q24H PAKO Last Admin: 03/15/25 08:40 Dose: 6 mg Digoxin (Digoxin 125 Mcg Tablet) 125 mcg PO DAILY PAKO Last Admin: 03/15/25 08:40 Dose: 125 mcg Heparin Sodium (Porcine) (Heparin 5,000 Unit/Ml Inj 1 Ml) 0 unit IVP PRN PRN; Protocol PRN Reason: Heparin Weight Based Protocol -Subsequent Bolus Last Admin: 03/14/25 20:51 Dose: 2,400 unit Heparin Sodium/Sodium Chloride (Heparin Drip) 25,000 unit in 500 mls @ 0 mls/hr IV CONT PAKO; Protocol Last Titration: 03/15/25 05:56 Dose: 17.71 unit/kg/hr, 21 mls/hr Amiodarone HCl/Dextrose (Nexterone) 360 mg in 200 mls @ 0 mls/hr IV .Q0M PAKO; Protocol Last Admin: 03/15/25 07:09 Dose: 0.5 mg/min, 16.67 mls/hr Azithromycin 500 mg/ Sodium (Chloride) 250 mls @ 250 mls/hr IV Q24H PAKO; Protocol Last Infusion: 03/14/25 19:42 Dose: Infused Piperacillin Sod/Tazobactam (Sod 3.375 gm/ Sodium Chloride) 50 mls @ 12.5 mls/hr IV Q8H PAKO Last Admin: 03/15/25 08:40 Dose: 12.5 mls/hr Diltiazem HCl 100 mg/ Sodium (Chloride) 100 mls @ 0 mls/hr IV .Q0M PAKO; Protocol Last Titration: 03/15/25 06:27 Dose: 5 mg/hr, 5 mls/hr Vancomycin HCl 750 mg/ Sodium (Chloride) 250 mls @ 250 mls/hr IV Q18H [facility] Ondansetron HCl (Ondansetron 2 Mg/Ml Sdv 2 Ml) 4 mg IVP Q6H PRN PRN Reason: NAUSEA AND VOMITING Pantoprazole Sodium (Pantoprazole Dr 40 Mg Tablet) 40 mg PO DAILY PAKO Last Admin: 03/15/25 08:40 Dose: 40 mg Vitals/I&O/Wt Last Vital Signs Temp 97.3 F L 03/15/25 04:00 Pulse 94 03/15/25 08:40 Resp 16 03/15/25 08:28 BP 98/57 03/15/25 06:15 Pulse Ox 96 03/15/25 08:28 O2 Del Method Room Air 03/15/25 08:28 O2 Flow Rate 2 03/14/25 10:45 03/14/25 03/15/25 03/15/25 22:59 06:59 14:59 Intake Total 1311.620 / 2581.820 1795.292 / 4377.112 Output Total 600 / 900 500 / 1400 350 / 350 Balance 711.620 / 2841.124 0172.292 / 2977.112 -350 / -350 Weight last 48 hrs Weight 63.6 kg Weight 63.6 kg Weight 61.5 kg Weight 61.5 kg Weight 59.3 kg Physical Exam 2 Narrative: Elderly lady in bed using nasal cannula oxygen. Sitting up. Comfortable vital signs noted. HEENT normocephalic atraumatic Neck is supple Lungs have crackles bilaterally Heart irregular tachycardic. Abdomen is soft positive bowel sounds. Extremities no edema Neuro awake alert oriented interactive moving Data 03/15/25 02:19 03/15/25 04:47 Micro: Microbiology 03/13/25 17:20 Gram Stain - Final Sputum - Expectorated Sputum Sputum Culture - Preliminary 03/13/25 16:50 Bacterial Antigens - Final Urine,Voided 03/13/25 22:30 Gram Stain - Final Sputum - Expectorated Sputum A&P Assessment and plan 1. Hyponatremia: 89 years lady history of breast cancer nonmelanoma skin cancer, hypertension hypothyroidism and osteoporosis. Patient was admitted yesterday for A-fib with RVR put on a Cardizem drip and amiodarone. Patient was found to have hyponatremia and COVID 19 positive. She was seen by my partner yesterday. Electrolytes bilaterally patient was put on very gentle IV fluids. Serum sodium improved to 123. Patient remains hyperkalemic with a metabolic acidosis. Patient had a lactic acidosis 1. Hyponatremia: Low urine sodium. Sodium improved on steroids and with IV fluids are hypertonic along with furosemide. Currently she is off of fluids and furosemide will repeat chemistries. Repeat urine sodium is remaining low repeat urine chloride's remain low continue IV fluids as needed. Normal TSH. Free water restrict. 2. Increased anion gap metabolic acidosis from lactic acidosis. Metabolic acidosis improving lactate 4.1 still Increased LFTs 3. A-fib on diltiazem and amiodarone. Monitor digoxin levels 4. Patient on antibiotics with Zosyn azithromycin Please monitor vancomycin level keep level on to 15 5. Monitor stool agree with sending for C. difficile but she is having diarrhea. Patient on remdesivir for COVID Medications reviewed Seen and examined with nurse using her A/V equipment. Patient consents to telehealth. Discussed with patient and her daughter Plan: IV fluids monitor chemistries. Antibiotics. PDMP PDMP Reviewed: Not Reviewed Attestations 2 Medical Necessity Statement*: Hyponatremia, COVID-pneumonia Time Spent in Patient Care: 16 - 35 minutes (>than 50% of time sp ent in counselling and/or direct pt care on unit) . Coding Level of Care Code Acute Code for [facility] Diagnoses Hyponatremia E87.1
[2025-03-15] MEDS: lidocaine 2% viscous 15 ML, aluminum-mag hydrox-simethicon 30 ML, sucralfate oral liq 1 GM PO (10:36)
[2025-03-15] MEDS: dilTIAZem ER (24HR) 120 mg Capsule PO (10:37)
--- NOTE | 2025-03-15 10:45 | PHA.VACGOAL ---
Vancomycin Goal - Goal Vancomycin Goal:: 15-20 mg/L - Therapy Day of therpy:: Day []of [] . Actual body weight (kg): 140 lb 3.424 oz - Data Labs: WBC 35.27 10^3/uL (3.29-11.43) H* 03/15/25 02:19 RBC 3.89 10^6/uL (3.85-5.65) 03/15/25 02:19 Hgb 12.10 g/dL (11.27-16.99) 03/15/25 02:19 Hct 36.6 % (36-47) 03/15/25 02:19 MCV 94.1 fl (85-98) 03/15/25 02:19 MCH 31.1 pg (27-33) 03/15/25 02:19 MCHC 33.1 g/dL (30-55) 03/15/25 02:19 RDW 13.2 % (12.1-15.1) 03/15/25 02:19 Sodium 127 mmol/L (136-145) L 03/15/25 04:47 Potassium 4.1 mmol/L (3.5-5.1) 03/15/25 04:47 Chloride 90 mmol/L (98-107) L 03/15/25 04:47 Carbon Dioxide 20 mmol/L (22-29) L 03/15/25 04:47 Anion Gap 21.1 (5-19) H 03/15/25 04:47 BUN 14 mg/dL (8-23) 03/15/25 04:47 Creatinine 0.9 mg/dL (0.5-0.9) 03/15/25 04:47 GFR Calculation Not Reportable 03/15/25 04:47 Treatment plan:: new consult Regimen:: STARTING PATIENT ON 1000MG Q24H PER PROTOCOL, WILL DRAW TROUGH BEFORE 4TH DOSE
[2025-03-15 11:12] LABS: C.Diff PCR (Lab) NEGATIVE (Negative)
--- NOTE | 2025-03-15 11:47 | XR_ITS ---
WS: [id number] Portable AP upright chest, 03/15/2025 Clinical Data: f/u Comparison: Portable chest, 03/13/2025 Findings: There is minimal right lower lobe opacity and probable left pleural reaction. No nodules or masses are seen. The heart is normal. The pulmonary vascularity is not increased. No pneumonia or pneumothorax is seen. The diaphragms are flattened. The aortic arch shows calcification and tortuosity. There is a dextroscoliosis. Surgical clips are in the left axilla. Monitor leads are on the chest wall. XR/XR chest 1V portable [id number] Impression: 1. No change in minimal right lower lobe opacity and probable left pleural reac tion. 2. Atherosclerosis and hyperinflation.
[2025-03-15 12:33] LABS: LAB Peripheral Smear Sent for Review
[2025-03-15] MEDS: magnesium sulfate premix 4 GM/100 ML PREMIX IV (13:05)
--- NOTE | 2025-03-15 13:06 | PM.PN ---
Subjective Subjective: seen this am pt on room air, feeling better Having diarrhea. States she has a history of IBS WBC count 35,000. Sodium has improved to 127 this morning. Bicarb 20 anion gap 21.1 Overnight echo was performed, official report is pending however I was informed that EF appeared to be normal with biatrial enlargement and pulmonary hypertension. Will have to confirm this report with cardiology. Vitals/I&O/Wt Last Vital Signs Temp 98.6 F 03/15/25 08:00 Pulse 110 H 03/15/25 10:45 Resp 29 H 03/15/25 10:45 BP 141/97 03/15/25 10:45 Pulse Ox 96 03/15/25 09:45 O2 Del Method Room Air 03/15/25 09:45 O2 Flow Rate 2 03/14/25 10:45 03/14/25 03/15/25 03/15/25 22:59 06:59 14:59 Intake Total 1311.620 / 2581.820 1795.292 / 4377.112 323.626 / 323.626 Output Total 600 / 900 500 / 1400 750 / 750 Balance 711.620 / 6415.335 7942.292 / 2977.112 -426.374 / -426.374 Weight last 48 hrs Weight 63.6 kg Weight 63.6 kg Weight 61.5 kg Weight 61.5 kg Weight 59.3 kg Physical Exam Narrative: General: Alert oriented x3, patient seen sitting up in bed appearing comfortable. On room air. No conversational dyspnea. Doing better. HEENT: Normocephalic, atraumatic, EOMI, Cardio: Irregularly irregular, however rate controlled. Respiratory: Clear to auscultation bilaterally, no wheezes no rhonchi no crackles GI: Abdomen soft, nontender, nondistended, bowel sounds + Extremities: 1-2+ bilateral nonpitting edema bilateral lower extremities Data 03/15/25 02:19 03/15/25 04:47 Micro: Microbiology 03/15/25 12:18 Blood Culture - Preliminary Blood SPECIMEN COLLECTED 03/15/25 10:20 Stool Lactoferrin - Final Stool 03/13/25 22:30 Gram Stain - Final Sputum - Expectorated Sputum Sputum Culture - Preliminary 03/13/25 17:20 Gram Stain - Final Sputum - Expectorated Sputum Sputum Culture - Final 03/13/25 16:50 Bacterial Antigens - Final Urine,Voided A&P Assessment and plan 1. Atrial fibrillation: 2. COVID: 3. Supplemental oxygen dependent: 4. Cough: 5. Hyponatremia: 6. High anion gap: 7. Elevated liver enzymes: 8. Leukocytosis: 9. Elevated troponin: 10. Lactic acidosis: Plan: #Atrial fibrillation with RVR #Enterra rhinovirus positive #Lactic acidosis #Leukocytosis #Hyponatremia #Supplemental oxygen requirement #Hypertension #Hyperlipidemia #Cough, shortness of breath #COVID-positive #Recent travel #Hypothyroidism ? Reviewed all of data from [facility] ? Will check repeat BMP, CBC, lactic acid, phosphorus, ABG, troponins, chest x-ray, BNP, respiratory panel, EKG ? Continue amiodarone drip ? Continue on heparin drip for new onset A-fib. ? Consult cardiology ? Discussed with pharmacy regarding remdesivir. Patient meets criteria for remdesivir at this time. There is no contraindication to being on amiodarone. She has new supplemental oxygen requirement therefore we will go ahead and order that for the patient. ? Check sputum culture Gram stain ? Check blood cultures ? Check chest x-ray, BNP ? Patient does not appear to be in heart failure clinically. ? Check echocardiogram ? Patient denies chest pain ? CRP elevated will trend. ? CT has ruled out PE at [facility] ? Sodium 121 at [facility]. Will recheck BMP. ? Check serum, urine osmolality, urine sodium ? Check BMP every 4 hours ? Consult nephrology - Will need to confirm home meds - Will wait to order iV fluids till urine sodium results - Order dexamethasone 6 IV daily Full code DVT prophylaxis: On heparin drip at this time 03/14/2025 Patient positive for enterorhinovirus and COVID Echocardiogram pending Patient met criteria for remdesivir therefore was given however patient's family does not want her to have any more doses of this. We will stop it per family request. Echocardiogram pending Patient remains in A-fib with RVR. Loaded with digoxin per cardiology. On Cardizem drip. BNP 11,000. Patient does not appear to be in overt heart failure clinically. She appears dehydrated instead. Lactic acid 2.8 overnight. We will repeat. Patient on gentle IV fluid hydration by nephrology. Sodium remains low at 121. Urine sodium less than 10. Osmolality 260 calculated. Serum osmolality pending. Troponins elevated but negative at 6 hours -12. CRP 213. Patient shortness of breath cough is multifactorial secondary to Enterra rhinovirus and possibly symptomatic COVID. Cardiology has been consulted. Will appreciate recommendations. Blood pressure stable. Patient's oxygen is trended down to 2 L nasal cannula. She will require DuoNeb every 6 hours. Discussed with respiratory therapy. Experiencing wheezing and rhonchi this morning. Continue dexamethasone 6 IV daily WBC count 25,000 possibly reactive to steroids versus to underlying infection or occult pneumonia. Continue Zosyn at this time. Chest x-ray did show bilateral pleural effusions mild pulmonary vascular congestion. Continue heparin drip. 03/15/2025 Seen this morning. Patient positive for Enterra rhinovirus and COVID. Respiratory gutierrez she seems to be doing really well. Is on room air. Denies any shortness of breath or conversational dyspnea. Lungs are clear to auscultation today. Patient with daughter at bedside. Discussed patient's care with her I will add vitamin D and vitamin C and zinc to her regimen. I do not believe her symptoms were due to COVID itself. My suspicion is that her rhinovirus is what started off her cough and sinus pressure initially and her requirement of oxygen was secondary to possible vascular congestion and bilateral pleural effusions. BNP most likely secondary to pulmonary cause rather than cardiac. Clinically she does not appear to be in overt heart failure. Discussed with cardiology at length today. Lactic acid 4.0 overnight with 14 of bicarb. Bicarb this morning improved to 20, chloride 90, sodium 127, creatinine 0.9. Will repeat lactic acid Phosphorus is 1.4. Order phosphate neutral 250 twice daily x 3 doses total Magnesium 2.0. WBC count 35,000. Will check blood cultures, stool culture. Check C. difficile. Possibility of leukemoid reaction CT chest abdomen pelvis shows multifocal bilateral airspace opacities the pattern suggest pneumonitis. This may be possible due to COVID versus true bacterial pneumonia. She has been afebrile. Clinically she is improving. Will check peripheral smear Check leukemia lymphoma profile Official echo results are still pending. Discussed with [employer] board certified orthotist today in the morning. Continue vancomycin and Zosyn and azithromycin (for atypical coverage) Appreciate nephrology recommendations. PDMP PDMP Reviewed: Not Reviewed Attestations Medical Necessity Statement*: A-fib with RVR, COVID pneumonia, Enterra rhinovirus, hyponatremia. Diagnoses Atrial fibrillation I48.91 COVID U07.1 Supplemental oxygen dependent Z99.81 Cough R05.9 Hyponatremia E87.1 High anion gap E87.8 Elevated liver enzymes R74.8 Leukocytosis D72.829 Elevated troponin R79.89 Lactic acidosis E87.20
[2025-03-15 14:14] LABS: Alanine Aminotransferase 93 U/L (0-33); Albumin Level 3.3 g/dL (3.5-5.2); Alkaline Phosphatase 92 U/L (35-105); Anion Gap 19.8 (5-19); Aspartate Amino Transferase 67 U/L (0-32); Blood Urea Nitrogen 11 mg/dL (8-23); Calcium 7.7 mg/dL (8.5-10.5); Carbon Dioxide 21 mmol/L (22-29); Chloride 90 mmol/L (98-107); Creatinine Clr Calc Pharmacy 43.6475; Globulin 3.1 g/dL (1.3-4.6); Glucose 111 mg/dL (65-115); Osmolality Calculated 264 mOsm/kg (285-295); Potassium 3.8 mmol/L (3.5-5.1); Sodium 127 mmol/L (136-145); Total Protein 6.4 g/dL (6.6-8.7)
[2025-03-15 14:29] LABS: Partial Thromboplastin Time 101.3 SECONDS (23.9-36.7)
[2025-03-15] MEDS: heparin drip 25,000 UNIT/500 ML PREMIX 17 UNIT IV (15:59)
[2025-03-15 19:58] LABS: Alanine Aminotransferase 91 U/L (0-33); Albumin Level 3.4 g/dL (3.5-5.2); Alkaline Phosphatase 94 U/L (35-105); Anion Gap 18.5 (5-19); Aspartate Amino Transferase 57 U/L (0-32); Blood Urea Nitrogen 10 mg/dL (8-23); Calcium 7.5 mg/dL (8.5-10.5); Carbon Dioxide 20 mmol/L (22-29); Chloride 88 mmol/L (98-107); Creatinine Clr Calc Pharmacy 43.6475; Globulin 3.3 g/dL (1.3-4.6); Glucose 140 mg/dL (65-115); Osmolality Calculated 257 mOsm/kg (285-295); Potassium 3.5 mmol/L (3.5-5.1); Sodium 123 mmol/L (136-145); Total Protein 6.7 g/dL (6.6-8.7)
[2025-03-15 20:04] LABS: Partial Thromboplastin Time 99.2 SECONDS (23.9-36.7)
[2025-03-16] VITALS (44 sets, daily range): BP systolic 110–180; BP diastolic 59–128; PULSE 68–115; RESP 16–32; TEMP 36.4–36.9; O2SAT 91–99
[2025-03-16] MEDS: piperacillin-tazobactam 3.375 GM in sodium chloride 0.9% (plus) 50 ML IV ×4 (00:32→23:37)
[2025-03-16 01:55] LABS: Alanine Aminotransferase 89 U/L (0-33); Albumin Level 3.5 g/dL (3.5-5.2); Alkaline Phosphatase 102 U/L (35-105); Aspartate Amino Transferase 57 U/L (0-32); Blood Urea Nitrogen 11 mg/dL (8-23); Calcium 7.7 mg/dL (8.5-10.5); Carbon Dioxide 23 mmol/L (22-29); Chloride 90 mmol/L (98-107); Creatinine Clr Calc Pharmacy 43.6475; Globulin 3.4 g/dL (1.3-4.6); Glucose 116 mg/dL (65-115); Osmolality Calculated 264 mOsm/kg (285-295); Sodium 127 mmol/L (136-145); Total Protein 6.9 g/dL (6.6-8.7)
[2025-03-16 01:56] LABS: Anion Gap 17.8 (5-19); Potassium 3.8 mmol/L (3.5-5.1)
[2025-03-16 03:53] LABS: Alanine Aminotransferase 72 U/L (0-33); Albumin Level 2.9 g/dL (3.5-5.2); Alkaline Phosphatase 78 U/L (35-105); Anion Gap 16.7 (5-19); Aspartate Amino Transferase 42 U/L (0-32); Blood Urea Nitrogen 10 mg/dL (8-23); Calcium 7.2 mg/dL (8.5-10.5); Carbon Dioxide 22 mmol/L (22-29); Chloride 91 mmol/L (98-107); Creatinine Clr Calc Pharmacy 43.6475; Globulin 2.7 g/dL (1.3-4.6); Glucose 121 mg/dL (65-115); Magnesium 2.1 mg/dL (1.7-2.3); Osmolality Calculated 262 mOsm/kg (285-295); Potassium 3.7 mmol/L (3.5-5.1); Sodium 126 mmol/L (136-145); Total Protein 5.6 g/dL (6.6-8.7)
[2025-03-16 03:58] LABS: Partial Thromboplastin Time 79.1 SECONDS (23.9-36.7)
[2025-03-16 05:40] LABS: Digoxin 1.6 ng/mL (0.6-1.2)
[2025-03-16 05:41] LABS: Alanine Aminotransferase 68 U/L (0-33); Albumin Level 2.9 g/dL (3.5-5.2); Alkaline Phosphatase 80 U/L (35-105); Anion Gap 15.7 (5-19); Aspartate Amino Transferase 39 U/L (0-32); Blood Urea Nitrogen 9 mg/dL (8-23); Calcium 7.2 mg/dL (8.5-10.5); Carbon Dioxide 23 mmol/L (22-29); Chloride 93 mmol/L (98-107); Creatinine Clr Calc Pharmacy 43.6475; Globulin 2.7 g/dL (1.3-4.6); Glucose 118 mg/dL (65-115); Osmolality Calculated 266 mOsm/kg (285-295); Potassium 3.7 mmol/L (3.5-5.1); Sodium 128 mmol/L (136-145); Total Protein 5.6 g/dL (6.6-8.7)
--- NOTE | 2025-03-16 07:02 | P.PN_ITS ---
Subjective 2 Subjective: Feels better. Breathing is improved. Still has leg edema. No nausea no vomiting no shortness of breath at rest. No chest pain no headaches. Decreased cough. Medications: Reviewed: Yes Medication Review Details: Current Medications Acetaminophen (Acetaminophen 325 Mg Tablet) 650 mg PO Q6H PRN PRN Reason: MILD PAIN Albuterol/Ipratropium (Ipratropium-Albuterol 3 Ml Neb) 3 ml INHALATION Q4H.RESPIRATORY PRN PRN Reason: SHORTNESS OF BREATH Last Admin: 03/14/25 21:08 Dose: 3 ml Amiodarone HCl (Amiodarone 200 Mg Tablet) 400 mg PO BID [facility] Last Admin: 03/15/25 17:43 Dose: 400 mg Ascorbic Acid (Ascorbic Acid 500 Mg Tablet) 500 mg PO BID [facility] Last Admin: 03/15/25 17:44 Dose: 500 mg Dexamethasone (Dexamethasone 10 Mg/Ml Inj) 6 mg IVP Q24H [facility] Last Admin: 03/15/25 08:40 Dose: 6 mg Digoxin (Digoxin 125 Mcg Tablet) 125 mcg PO DAILY [facility] Last Admin: 03/15/25 08:40 Dose: 125 mcg Diltiazem HCl (Diltiazem Er (24hr) 120 Mg Capsule) 120 mg PO DAILY [facility] Last Admin: 03/15/25 10:37 Dose: 120 mg Heparin Sodium (Porcine) (Heparin 5,000 Unit/Ml Inj 1 Ml) 0 unit IVP PRN PRN; Protocol PRN Reason: Heparin Weight Based Protocol -Subsequent Bolus Last Admin: 03/14/25 20:51 Dose: 2,400 unit Heparin Sodium/Sodium Chloride (Heparin Drip) 25,000 unit in 500 mls @ 0 mls/hr IV CONT PAKO; Protocol Last Titration: 03/16/25 04:01 Dose: 10.12 unit/kg/hr, 12 mls/hr Azithromycin 500 mg/ Sodium (Chloride) 250 mls @ 250 mls/hr IV Q24H [facility]; Protocol Last Infusion: 03/15/25 19:10 Dose: Infused Piperacillin Sod/Tazobactam (Sod 3.375 gm/ Sodium Chloride) 50 mls @ 12.5 mls/hr IV Q8H [facility] Last Infusion: 03/16/25 04:42 Dose: Infused Vancomycin HCl 1,000 mg/ (Sodium Chloride) 250 mls @ 250 mls/hr IV Q24H [facility] Last Infusion: 03/15/25 14:05 Dose: Infused Ondansetron HCl (Ondansetron 2 Mg/Ml Sdv 2 Ml) 4 mg IVP Q6H PRN PRN Reason: NAUSEA AND VOMITING Pantoprazole Sodium (Pantoprazole Dr 40 Mg Tablet) 40 mg PO DAILY [facility] Last Admin: 03/15/25 08:40 Dose: 40 mg Potassium Phosphate (Phosphorus 250 Mg Tablet) 250 mg PO BID [facility] Stop: 03/16/25 09:01 Last Admin: 03/15/25 17:44 Dose: 250 mg Vitamin D (Cholecalciferol (Vitamin D3) 1,000 Unit Tablet) 2,000 unit PO DAILY [facility] Zinc Gluconate (Zinc Gluconate 50 Mg Tablet) 50 mg PO DAILY [facility] Vitals/I&O/Wt Last Vital Signs Temp 97.8 F 03/16/25 04:00 Pulse 68 03/16/25 06:00 Resp 22 H 03/16/25 06:00 BP 153/88 03/16/25 06:00 Pulse Ox 95 03/16/25 06:00 O2 Del Method Room Air 03/16/25 06:00 O2 Flow Rate 2 03/14/25 10:45 03/15/25 03/16/25 03/16/25 22:59 06:59 14:59 Intake Total 601.150 / 1419.893 867.717 / 2287.610 Output Total 200 / 1200 600 / 1800 Balance 401.150 / 219.893 267.717 / 487.610 Weight last 48 hrs Weight 65.6 kg Weight 65.6 kg Weight 63.6 kg Weight 63.6 kg Physical Exam 2 Narrative: Elderly lady sitting up comfortably in bed no apparent distress no longer using nasal cannula oxygen. vital signs noted. HEENT normocephalic atraumatic Neck is supple Lungs have good air movement bilaterally Heart exam is regular positive S1-S2 Abdomen is soft positive bowel sounds. Extremities bilateral edema of the legs Neuro awake alert oriented interactive moving Data 03/15/25 02:19 03/16/25 05:07 Micro: Microbiology 03/15/25 13:39 Blood Culture - Preliminary Blood SPECIMEN COLLECTED 03/15/25 12:18 Blood Culture - Preliminary Blood SPECIMEN COLLECTED 03/15/25 10:20 Stool Lactoferrin - Final Stool 03/13/25 22:30 Gram Stain - Final Sputum - Expectorated Sputum Sputum Culture - Preliminary 03/13/25 17:20 Gram Stain - Final Sputum - Expectorated Sputum Sputum Culture - Final A&P Assessment and plan 1. Hyponatremia: 89 years lady history of breast cancer nonmelanoma skin cancer, hypertension hypothyroidism and osteoporosis. Patient was admitted yesterday for A-fib with RVR put on a Cardizem drip and amiodarone. Patient was found to have hyponatremia and COVID 19 positive. She was seen by my partner yesterday. Electrolytes bilaterally patient was put on very gentle IV fluids. Serum sodium improved to 128. 1. Hyponatremia: Low urine sodium. Sodium improved on steroids and with IV fluids Currently she is off of fluids and furosemide will repeat chemistries daily. Patient has leg edema. Will therefore not give IV fluids and labs serum sodium decreases please give another liter normal saline. Normal TSH. Free water restrict. 2. Increased anion gap metabolic acidosis from lactic acidosis. Metabolic acidosis improving. Can repeat lactate Increased LFTs is improving 3. A-fib on diltiazem and amiodarone. Monitor digoxin levels. Her dig levels 1.6. Please decrease dose Sinus rhythm 4. Patient on antibiotics with Zosyn azithromycin Please monitor vancomycin level keep level on to 15 5. Monitor stool. She states diarrhea is improved. Her C. difficile was negative. 6. Monitor leukocytosis. Patient on remdesivir for COVID Medications reviewed Seen and examined with nurse using her A/V equipment. Patient consents to telehealth. Discussed with patient and her daughter Plan: As above PDMP PDMP Reviewed: Not Reviewed Attestations 2 Medical Necessity Statement*: COVID 19 pneumonia, bacterial infection, leukocytosis, A-fib is now sinus rhythm, hyponatremia improving Time Spent in Patient Care: 16 - 35 minutes (>than 50% of time sp ent in counselling and/or direct pt care on unit) . Coding Level of Care Code Acute Code for [facility] Diagnoses Hyponatremia E87.1
[2025-03-16] MEDS: dilTIAZem ER (24HR) 120 mg Capsule PO (08:11)
--- NOTE | 2025-03-16 08:50 | P.PN_ITS ---
<Statement entered by Yoandy Benavides M.D - 03/20/25 08:15> Patient was cared for in conjunction with an advanced practice practitioner.? I reviewed the chart and all pertinent data including imaging, telemetry, and laboratory results.? I discussed the patient in detail with the advanced practice practitioner.? Please see?their note for progress note, testing results and agreed upon plan of care for the patient. Subjective 2 Subjective: She continues to steadily improve. She has converted in sinus rhythm as of this morning. WBC down to 24. Echocardiogram was unassigned so not read. This has been sent to Dr. Benavides. Vitals/I&O/Wt Last Vital Signs Temp 97.8 F 03/16/25 04:00 Pulse 85 03/16/25 14:30 Resp 22 H 03/16/25 14:30 BP 140/108 03/16/25 14:30 Pulse Ox 99 03/16/25 14:30 O2 Del Method Room Air 03/16/25 08:50 O2 Flow Rate 2 03/14/25 10:45 03/16/25 03/16/25 03/16/25 06:59 14:59 22:59 Intake Total 867.717 / 2287.610 650 / 650 Output Total 600 / 1800 300 / 300 Balance 267.717 / 487.610 350 / 350 Weight last 48 hrs Weight 144 lb 9.972 oz Weight 144 lb 9.972 oz Weight 140 lb 3.424 oz Weight 140 lb 3.424 oz Physical Exam 2 Const: COMMON NORMALS: no acute distress and patient oriented x3 GENERAL APPEARANCE: cooperative and comfortable ORIENTATION/CONSCIOUSNESS: Yes awake, Yes oriented to person, Yes oriented to place and Yes oriented to time Chest: COMMONS NORMALS: normal inspection of the chest and normal palpation of entire chest wall CHEST: Yes Symmetrical chest wall rise Resp: COMMON NORMALS: normal respiratory effort, No retractions, No use of accessory muscles and clear to auscultation bilaterally EFFORT & INSPECTION: Yes symmetric chest movement AUSCULTATION: clear to auscultation bilaterally Cardio: COMMON NORMALS: regular rate, regular rhythm, S1 normal heart sound present, S2 normal heart sound present, No gallops present (Cardio), No clicks present (Cardio), No murmurs present (Cardio) and No rub (Cardio) RATE: r egular rate RHYTHM: regular rhythm HEART SOUNDS: S1 normal heart sound present and S2 normal heart sound present PERIPHERAL PULSES: radial pulses present Extremity: GENERAL: Yes edema (1-2+ bilat LE edema below the knee) Neuro: COMMON NORMALS: patient oriented x3 and moves all extremities S ENSORIUM/ORIENTATION: Yes oriented to person, Yes oriented to place and Yes oriented to time Data 03/16/25 10:17 03/16/25 05:07 Micro: Microbiology 03/15/25 13:39 Blood Culture - Preliminary Blood NEGATIVE TO DATE 03/15/25 12:18 Blood Culture - Preliminary Blood NEGATIVE TO DATE 03/13/25 22:30 Gram Stain - Final Sputum - Expectorated Sputum Sputum Culture - Final 03/15/25 10:20 Stool Lactoferrin - Final Stool 03/13/25 17:20 Gram Stain - Final Sputum - Expectorated Sputum Sputum Culture - Final A&P Assessment and plan 1. Atrial fibrillation: 2. COVID: 3. Elevated liver enzymes: 4. Hyponatremia: Plan: She is converted to sinus rhythm. Continue amiodarone 400 mg twice daily, can plan to taper. Since she is elderly, her maintenance dose may need to be 100mg rather than 200mg. But this can be evaluated at her follow-up visits. Continue diltiazem 120 mg daily. PDMP PDMP Reviewed: Not Reviewed Attestations 2 Medical Necessity Statement*: Atrial fibrillation with RVR now converted Coding Level of Care Code Acute Code for [facility] Diagnoses Atrial fibrillation I48.91 COVID U07.1 Elevated liver enzymes R74.8 Hyponatremia E87.1
[2025-03-16 10:24] LABS: Hematocrit 37.9 % (36-47); Hemoglobin 12.50 g/dL (11.27-16.99); Mean Corpuscular HGB Conc 33.0 g/dL (30-55); Mean Corpuscular Hemoglobin 31.0 pg (27-33); Mean Corpuscular Volume 94.0 fl (85-98); Nucleated Red Blood Cells % 0 %; Platelet Count 263 10^3/cmm (157-399); Red Blood Count 4.03 10^6/uL (3.85-5.65); White Blood Count 24.11 10^3/uL (3.29-11.43)
--- NOTE | 2025-03-16 10:47 | PC.SOCIAL ---
IMM Update pg 2 of IMM Updated and reviewed w/ patient. Copy provided and copy dated, initialed and placed in chart.
[2025-03-16 10:56] LABS: Partial Thromboplastin Time 46.5 SECONDS (23.9-36.7)
--- NOTE | 2025-03-16 12:00 | PM.PN ---
Subjective Subjective: Patient seen this morning. White count 24,000 trending down. Sodium 128, chloride 93. Liver enzymes are trending down. Phosphorus 1.6 today. At 3 bowel movements yesterday. She said the diarrhea has not really slowed down. Acidosis has resolved. Vitals/I&O/Wt Last Vital Signs Temp 97.8 F 03/16/25 04:00 Pulse 95 03/16/25 10:00 Resp 21 H 03/16/25 10:00 BP 170/96 03/16/25 10:00 Pulse Ox 95 03/16/25 10:00 O2 Del Method Room Air 03/16/25 08:50 O2 Flow Rate 2 03/14/25 10:45 03/15/25 03/16/25 03/16/25 22:59 06:59 14:59 Intake Total 601.150 / 1419.893 867.717 / 2287.610 350 / 350 Output Total 200 / 1200 600 / 1800 300 / 300 Balance 401.150 / 219.893 267.717 / 487.610 50 / 50 Weight last 48 hrs Weight 65.6 kg Weight 65.6 kg Weight 63.6 kg Weight 63.6 kg Physical Exam Narrative: General: Alert oriented x3, sitting up in chair. HEENT: Normocephalic, atraumatic, EOMI, Cardio: Irregularly irregular, however rate controlled. Respiratory: Clear to auscultation bilaterally, no wheezes no rhonchi no crackles GI: Abdomen soft, nontender, nondistended, bowel sounds + Extremities: 1+ bilateral nonpitting edema bilateral lower extremities Data 03/16/25 10:17 03/16/25 05:07 Micro: Microbiology 03/13/25 22:30 Gram Stain - Final Sputum - Expectorated Sputum Sputum Culture - Final 03/15/25 13:39 Blood Culture - Preliminary Blood SPECIMEN COLLECTED 03/15/25 12:18 Blood Culture - Preliminary Blood SPECIMEN COLLECTED 03/15/25 10:20 Stool Lactoferrin - Final Stool 03/13/25 17:20 Gram Stain - Final Sputum - Expectorated Sputum Sputum Culture - Final A&P Assessment and plan 1. Atrial fibrillation: 2. COVID: 3. Supplemental oxygen dependent: 4. Cough: 5. Hyponatremia: 6. High anion gap: 7. Elevated liver enzymes: 8. Leukocytosis: 9. Elevated troponin: 10. Lactic acidosis: Plan: #Atrial fibrillation with RVR #Enterra rhinovirus positive #Lactic acidosis #Leukocytosis #Hyponatremia #Supplemental oxygen requirement #Hypertension #Hyperlipidemia #Cough, shortness of breath #COVID-positive #Recent travel #Hypothyroidism ? Reviewed all of data from [facility] ? Will check repeat BMP, CBC, lactic acid, phosphorus, ABG, troponins, chest x-ray, BNP, respiratory panel, EKG ? Continue amiodarone drip ? Continue on heparin drip for new onset A-fib. ? Consult cardiology ? Discussed with pharmacy regarding remdesivir. Patient meets criteria for remdesivir at this time. There is no contraindication to being on amiodarone. She has new supplemental oxygen requirement therefore we will go ahead and order that for the patient. ? Check sputum culture Gram stain ? Check blood cultures ? Check chest x-ray, BNP ? Patient does not appear to be in heart failure clinically. ? Check echocardiogram ? Patient denies chest pain ? CRP elevated will trend. ? CT has ruled out PE at [facility] ? Sodium 121 at [facility]. Will recheck BMP. ? Check serum, urine osmolality, urine sodium ? Check BMP every 4 hours ? Consult nephrology - Will need to confirm home meds - Will wait to order iV fluids till urine sodium results - Order dexamethasone 6 IV daily Full code DVT prophylaxis: On heparin drip at this time 03/14/2025 Patient positive for enterorhinovirus and COVID Echocardiogram pending Patient met criteria for remdesivir therefore was given however patient's family does not want her to have any more doses of this. We will stop it per family request. Echocardiogram pending Patient remains in A-fib with RVR. Loaded with digoxin per cardiology. On Cardizem drip. BNP 11,000. Patient does not appear to be in overt heart failure clinically. She appears dehydrated instead. Lactic acid 2.8 overnight. We will repeat. Patient on gentle IV fluid hydration by nephrology. Sodium remains low at 121. Urine sodium less than 10. Osmolality 260 calculated. Serum osmolality pending. Troponins elevated but negative at 6 hours -12. CRP 213. Patient shortness of breath cough is multifactorial secondary to Enterra rhinovirus and possibly symptomatic COVID. Cardiology has been consulted. Will appreciate recommendations. Blood pressure stable. Patient's oxygen is trended down to 2 L nasal cannula. She will require DuoNeb every 6 hours. Discussed with respiratory therapy. Experiencing wheezing and rhonchi this morning. Continue dexamethasone 6 IV daily WBC count 25,000 possibly reactive to steroids versus to underlying infection or occult pneumonia. Continue Zosyn at this time. Chest x-ray did show bilateral pleural effusions mild pulmonary vascular congestion. Continue heparin drip. 03/15/2025 Seen this morning. Patient positive for Enterra rhinovirus and COVID. Respiratory gutierrez she seems to be doing really well. Is on room air. Denies any shortness of breath or conversational dyspnea. Lungs are clear to auscultation today. Patient with daughter at bedside. Discussed patient's care with her I will add vitamin D and vitamin C and zinc to her regimen. I do not believe her symptoms were due to COVID itself. My suspicion is that her rhinovirus is what started off her cough and sinus pressure initially and her requirement of oxygen was secondary to possible vascular congestion and bilateral pleural effusions. BNP most likely secondary to pulmonary cause rather than cardiac. Clinically she does not appear to be in overt heart failure. Discussed with cardiology at length today. Lactic acid 4.0 overnight with 14 of bicarb. Bicarb this morning improved to 20, chloride 90, sodium 127, creatinine 0.9. Will repeat lactic acid Phosphorus is 1.4. Order phosphate neutral 250 twice daily x 3 doses total Magnesium 2.0. WBC count 35,000. Will check blood cultures, stool culture. Check C. difficile. Possibility of leukemoid reaction CT chest abdomen pelvis shows multifocal bilateral airspace opacities the pattern suggest pneumonitis. This may be possible due to COVID versus true bacterial pneumonia. She has been afebrile. Clinically she is improving. Will check peripheral smear Check leukemia lymphoma profile Official echo results are still pending. Discussed with journal clerk today in the morning. Continue vancomycin and Zosyn and azithromycin (for atypical coverage) Appreciate nephrology recommendations. 03/16/2025 White count trending down. Continue Vanco Zosyn azithromycin Covering for pneumonia Digoxin level supratherapeutic today 1.6 Hold digoxin dose going forward. Patient not bradycardic. Retest for C. difficile. Continue dexamethasone 6 x 10 days total. Continue amiodarone 400 twice daily Appreciate recommendations from cardiology Patient's albumin level is 2.9. She may be third spacing and hence the bilateral lower extremity edema. Corrected calcium normal for albumin. Nephrology following. Appreciate recs. May transfer to CICU today. PDMP PDMP Reviewed: Not Reviewed Attestations Medical Necessity Statement*: A-fib with RVR, COVID pneumonia, Enterra rhinovirus, hyponatremia. Diagnoses Atrial fibrillation I48.91 COVID U07.1 Supplemental oxygen dependent Z99.81 Cough R05.9 Hyponatremia E87.1 High anion gap E87.8 Elevated liver enzymes R74.8 Leukocytosis D72.829 Elevated troponin R79.89 Lactic acidosis E87.20
[2025-03-16 15:50] LABS: C.Diff PCR (Lab) NEGATIVE (Negative)
--- NOTE | 2025-03-16 23:34 | PC.NURSE ---
Received during report that heparin gtt turned off/discontinued prior to 1900 shift change but shows that it continues to infuse. Paused in MAR to reflect current rate.
[2025-03-17] VITALS (28 sets, daily range): BP systolic 136–172; BP diastolic 66–133; PULSE 65–138; RESP 15–31; TEMP 36.4–37.1; O2SAT 92–98
[2025-03-17 03:31] LABS: Hematocrit 34.3 % (36-47); Hemoglobin 11.20 g/dL (11.27-16.99); Mean Corpuscular HGB Conc 32.7 g/dL (30-55); Mean Corpuscular Hemoglobin 31.1 pg (27-33); Mean Corpuscular Volume 95.3 fl (85-98); Nucleated Red Blood Cells % 0 %; Platelet Count 276 10^3/cmm (157-399); Red Blood Count 3.60 10^6/uL (3.85-5.65); White Blood Count 16.67 10^3/uL (3.29-11.43)
[2025-03-17 03:44] LABS: Alanine Aminotransferase 58 U/L (0-33); Albumin Level 3.1 g/dL (3.5-5.2); Alkaline Phosphatase 86 U/L (35-105); Anion Gap 15.6 (5-19); Aspartate Amino Transferase 27 U/L (0-32); Blood Urea Nitrogen 9 mg/dL (8-23); Calcium 7.5 mg/dL (8.5-10.5); Carbon Dioxide 23 mmol/L (22-29); Chloride 97 mmol/L (98-107); Creatinine Clr Calc Pharmacy 44.2614; Globulin 2.2 g/dL (1.3-4.6); Glucose 128 mg/dL (65-115); Magnesium 2.2 mg/dL (1.7-2.3); Osmolality Calculated 274 mOsm/kg (285-295); Potassium 3.6 mmol/L (3.5-5.1); Sodium 132 mmol/L (136-145); Total Protein 5.3 g/dL (6.6-8.7)
[2025-03-17] MEDS: dilTIAZem ER (24HR) 120 mg Capsule PO (08:38)
[2025-03-17] MEDS: ondansetron 2 mg/ML SDV 2 mL 4 MG IVP (08:39)
[2025-03-17] MEDS: piperacillin-tazobactam 3.375 GM in sodium chloride 0.9% (plus) 50 ML IV ×3 (08:39→23:45)
[2025-03-17] MEDS: potassium phosphate (mEq K) 40 MEQ in sodium chloride 0.9% (100 ml) 100 ML 27.25 MEQ IV (10:46)
--- NOTE | 2025-03-17 10:53 | P.PN_ITS ---
Subjective 2 Subjective: no new complaints Medications: Reviewed: Yes Vitals/I&O/Wt Last Vital Signs Temp 97.6 F 03/17/25 04:00 Pulse 85 03/17/25 08:01 Resp 16 03/17/25 08:01 BP 152/79 03/17/25 08:00 Pulse Ox 94 03/17/25 08:01 O2 Del Method Room Air 03/17/25 08:01 O2 Flow Rate 2 03/14/25 10:45 03/16/25 03/17/25 03/17/25 22:59 06:59 14:59 Intake Total 729.8 / 1429.8 50 / 1479.8 Output Total 900 / 1200 1250 / 2450 Balance -170.2 / 229.8 -1200 / -970.2 Weight last 48 hrs Weight 61.5 kg Weight 61.5 kg Weight 65.6 kg Weight 65.6 kg Physical Exam 2 Narrative: Elderly lady sitting up comfortably in bed no apparent distress no longer using nasal cannula oxygen. vital signs noted. HEENT normocephalic atraumatic Neck is supple Lungs have good air movement bilaterally Heart exam is regular positive S1-S2 Abdomen is soft positive bowel sounds. Extremities bilateral edema of the legs Neuro awake alert oriented interactive moving Data 03/17/25 02:57 03/17/25 02:57 Micro: Microbiology 03/15/25 13:39 Blood Culture - Preliminary Blood NEGATIVE TO DATE 03/15/25 12:18 Blood Culture - Preliminary Blood NEGATIVE TO DATE 03/13/25 22:30 Gram Stain - Final Sputum - Expectorated Sputum Sputum Culture - Final A&P Assessment and plan 1. Hyponatremia: 89 years lady history of breast cancer nonmelanoma skin cancer, hypertension hypothyroidism and osteoporosis. Patient was admitted yesterday for A-fib with RVR put on a Cardizem drip and amiodarone. Patient was found to have hyponatremia and COVID 19 positive. She was seen by my partner yesterday. Electrolytes bilaterally patient was put on very gentle IV fluids. Serum sodium improved to 128. 1. Hyponatremia: Low urine sodium. Sodium improved on steroids and with IV fluids Currently she is off of fluids and furosemide Patient has leg edema. will resume lasix 20 mg daily BMP daily 2. Increased anion gap metabolic acidosis from lactic acidosis. Metabolic acidosis improving. 3. Increased LFTs is improving 3. A-fib on diltiazem and amiodarone. Monitor digoxin levels. Her dig levels 1.6. Please decrease dose Sinus rhythm 4. Patient on antibiotics with Zosyn azithromycin Please monitor vancomycin level keep level on to 15 5. Diarrhea, improved Patient on remdesivir for COVID Medications reviewed Seen and examined with nurse using her A/V equipment. Patient consents to telehealth. Discussed with patient and her daughter Plan: As above PDMP PDMP Reviewed: Not Reviewed Attestations 2 Medical Necessity Statement*: estuardo Coding Level of Care Code Acute Code for [facility] Fwd Diagnoses Hyponatremia E87.1
--- NOTE | 2025-03-17 16:50 | PM.PN ---
Subjective Subjective: seen this morning diarrhea has slowed down c.diff negative wbc 16K Vitals/I&O/Wt Last Vital Signs Temp 98.2 F 03/17/25 13:30 Pulse 76 03/17/25 16:00 Resp 20 H 03/17/25 16:00 BP 152/83 03/17/25 16:00 Pulse Ox 97 03/17/25 16:00 O2 Del Method Room Air 03/17/25 16:00 O2 Flow Rate 2 03/14/25 10:45 03/17/25 03/17/25 03/17/25 06:59 14:59 22:59 Intake Total 50 / 1479.8 831.0909 / 831.0909 Output Total 1250 / 2450 400 / 400 Balance -1200 / -970.2 431.0909 / 431.0909 Weight last 48 hrs Weight 61.5 kg Weight 61.5 kg Weight 65.6 kg Weight 65.6 kg Physical Exam Narrative: General: Alert oriented x3, sitting up in chair. HEENT: Normocephalic, atraumatic, EOMI, Cardio: Irregularly irregular, however rate controlled. Respiratory: Clear to auscultation bilaterally, no wheezes no rhonchi no crackles GI: Abdomen soft, nontender, nondistended, bowel sounds + Extremities: 1+ bilateral nonpitting edema bilateral lower extremities Data 03/17/25 02:57 03/17/25 02:57 Micro: Microbiology 03/15/25 16:20 Urine Culture - Final Urine,Voided 03/15/25 13:39 Blood Culture - Preliminary Blood NEGATIVE TO DATE 03/15/25 12:18 Blood Culture - Preliminary Blood NEGATIVE TO DATE A&P Assessment and plan 1. Atrial fibrillation: 2. COVID: 3. Supplemental oxygen dependent: 4. Cough: 5. Hyponatremia: 6. High anion gap: 7. Elevated liver enzymes: 8. Leukocytosis: 9. Elevated troponin: 10. Lactic acidosis: Plan: #Atrial fibrillation with RVR #Enterra rhinovirus positive #Lactic acidosis #Leukocytosis #Hyponatremia #Supplemental oxygen requirement #Hypertension #Hyperlipidemia #Cough, shortness of breath #COVID-positive #Recent travel #Hypothyroidism ? Reviewed all of data from [facility] ? Will check repeat BMP, CBC, lactic acid, phosphorus, ABG, troponins, chest x-ray, BNP, respiratory panel, EKG ? Continue amiodarone drip ? Continue on heparin drip for new onset A-fib. ? Consult cardiology ? Discussed with pharmacy regarding remdesivir. Patient meets criteria for remdesivir at this time. There is no contraindication to being on amiodarone. She has new supplemental oxygen requirement therefore we will go ahead and order that for the patient. ? Check sputum culture Gram stain ? Check blood cultures ? Check chest x-ray, BNP ? Patient does not appear to be in heart failure clinically. ? Check echocardiogram ? Patient denies chest pain ? CRP elevated will trend. ? CT has ruled out PE at [facility] ? Sodium 121 at [facility]. Will recheck BMP. ? Check serum, urine osmolality, urine sodium ? Check BMP every 4 hours ? Consult nephrology - Will need to confirm home meds - Will wait to order iV fluids till urine sodium results - Order dexamethasone 6 IV daily Full code DVT prophylaxis: On heparin drip at this time 03/14/2025 Patient positive for enterorhinovirus and COVID Echocardiogram pending Patient met criteria for remdesivir therefore was given however patient's family does not want her to have any more doses of this. We will stop it per family request. Echocardiogram pending Patient remains in A-fib with RVR. Loaded with digoxin per cardiology. On Cardizem drip. BNP 11,000. Patient does not appear to be in overt heart failure clinically. She appears dehydrated instead. Lactic acid 2.8 overnight. We will repeat. Patient on gentle IV fluid hydration by nephrology. Sodium remains low at 121. Urine sodium less than 10. Osmolality 260 calculated. Serum osmolality pending. Troponins elevated but negative at 6 hours -12. CRP 213. Patient shortness of breath cough is multifactorial secondary to Enterra rhinovirus and possibly symptomatic COVID. Cardiology has been consulted. Will appreciate recommendations. Blood pressure stable. Patient's oxygen is trended down to 2 L nasal cannula. She will require DuoNeb every 6 hours. Discussed with respiratory therapy. Experiencing wheezing and rhonchi this morning. Continue dexamethasone 6 IV daily WBC count 25,000 possibly reactive to steroids versus to underlying infection or occult pneumonia. Continue Zosyn at this time. Chest x-ray did show bilateral pleural effusions mild pulmonary vascular congestion. Continue heparin drip. 03/15/2025 Seen this morning. Patient positive for Enterra rhinovirus and COVID. Respiratory gutierrez she seems to be doing really well. Is on room air. Denies any shortness of breath or conversational dyspnea. Lungs are clear to auscultation today. Patient with daughter at bedside. Discussed patient's care with her I will add vitamin D and vitamin C and zinc to her regimen. I do not believe her symptoms were due to COVID itself. My suspicion is that her rhinovirus is what started off her cough and sinus pressure initially and her requirement of oxygen was secondary to possible vascular congestion and bilateral pleural effusions. BNP most likely secondary to pulmonary cause rather than cardiac. Clinically she does not appear to be in overt heart failure. Discussed with cardiology at length today. Lactic acid 4.0 overnight with 14 of bicarb. Bicarb this morning improved to 20, chloride 90, sodium 127, creatinine 0.9. Will repeat lactic acid Phosphorus is 1.4. Order phosphate neutral 250 twice daily x 3 doses total Magnesium 2.0. WBC count 35,000. Will check blood cultures, stool culture. Check C. difficile. Possibility of leukemoid reaction CT chest abdomen pelvis shows multifocal bilateral airspace opacities the pattern suggest pneumonitis. This may be possible due to COVID versus true bacterial pneumonia. She has been afebrile. Clinically she is improving. Will check peripheral smear Check leukemia lymphoma profile Official echo results are still pending. Discussed with slab grinder today in the morning. Continue vancomycin and Zosyn and azithromycin (for atypical coverage) Appreciate nephrology recommendations. 03/16/2025 White count trending down. Continue Vanco Zosyn azithromycin Covering for pneumonia Digoxin level supratherapeutic today 1.6 Hold digoxin dose going forward. Patient not bradycardic. Retest for C. difficile. Continue dexamethasone 6 x 10 days total. Continue amiodarone 400 twice daily Appreciate recommendations from cardiology Patient's albumin level is 2.9. She may be third spacing and hence the bilateral lower extremity edema. Corrected calcium normal for albumin. Nephrology following. Appreciate recs. May transfer to CICU today. 03/17/2025 continue vanc and zosyn check dig level dexamethasone 6 IV daily x 7 days total c.diff negative continue immodium PRN diarrhea starting to slow down amiodarone 400 mg BID x 7 days total then transition to 400 mg x 7 days and then 200 mg daily thereafter continue phospha neutral 250 BID continue eliquis 2.5 BID cardizem 120 daily check PT/OT transfer to CSU PDMP PDMP Reviewed: Not Reviewed Attestations Medical Necessity Statement*: A-fib with RVR, COVID pneumonia, Enterra rhinovirus, hyponatremia. Diagnoses Atrial fibrillation I48.91 COVID U07.1 Supplemental oxygen dependent Z99.81 Cough R05.9 Hyponatremia E87.1 High anion gap E87.8 Elevated liver enzymes R74.8 Leukocytosis D72.829 Elevated troponin R79.89 Lactic acidosis E87.20
[2025-03-17] MEDS: dilTIAZem 5 mg/mL SDV 5 mL 10 MG IVP (22:33)
[2025-03-18] VITALS (17 sets, daily range): BP systolic 121–156; BP diastolic 73–122; PULSE 85–134; RESP 14–35; TEMP 36.4–36.6; O2SAT 90–97
[2025-03-18 04:53] LABS: Hematocrit 34.5 % (36-47); Hemoglobin 11.50 g/dL (11.27-16.99); Mean Corpuscular HGB Conc 33.3 g/dL (30-55); Mean Corpuscular Hemoglobin 30.7 pg (27-33); Mean Corpuscular Volume 92.2 fl (85-98); Platelet Count 305 10^3/cmm (157-399); Red Blood Count 3.74 10^6/uL (3.85-5.65); White Blood Count 18.49 10^3/uL (3.29-11.43)
[2025-03-18 05:04] LABS: Alanine Aminotransferase 51 U/L (0-33); Albumin Level 3.0 g/dL (3.5-5.2); Alkaline Phosphatase 64 U/L (35-105); Anion Gap 13.4 (5-19); Aspartate Amino Transferase 22 U/L (0-32); Blood Urea Nitrogen 11 mg/dL (8-23); Calcium 7.4 mg/dL (8.5-10.5); Carbon Dioxide 25 mmol/L (22-29); Chloride 97 mmol/L (98-107); Creatinine Clr Calc Pharmacy 43.0029; Globulin 2.1 g/dL (1.3-4.6); Glucose 128 mg/dL (65-115); Magnesium 2.1 mg/dL (1.7-2.3); Osmolality Calculated 275 mOsm/kg (285-295); Potassium 3.4 mmol/L (3.5-5.1); Sodium 132 mmol/L (136-145); Total Protein 5.1 g/dL (6.6-8.7)
[2025-03-18 05:32] LABS: Slide Review Slide Review Perform
[2025-03-18 05:36] LABS: Absolute Segmented Neutrophil 16.3 10/cmm (1.6-7.1); Atypical Lymphs 1.0 % (0-5); Band Neutrophils Absolute 0.2 10^3/cmm (0.0-1.2); Total Cells Counted 100 (0-100)
--- NOTE | 2025-03-18 07:48 | P.PN_ITS ---
Subjective 2 Subjective: Patient went back into atrial fibrillation. Her rate is controlled. She is weak lethargic has some diarrhea not eating well no nausea no vomiting no headaches. Medications: Reviewed: Yes Medication Review Details: Current Medications Acetaminophen (Acetaminophen 325 Mg Tablet) 650 mg PO Q6H PRN PRN Reason: MILD PAIN Albuterol/Ipratropium (Ipratropium-Albuterol 3 Ml Neb) 3 ml INHALATION Q4H.RESPIRATORY PRN PRN Reason: SHORTNESS OF BREATH Last Admin: 03/14/25 21:08 Dose: 3 ml Amiodarone HCl (Amiodarone 200 Mg Tablet) 400 mg PO BID [facility] Last Admin: 03/17/25 17:21 Dose: 400 mg Apixaban (Apixaban 5 Mg Tablet) 2.5 mg PO BID@0900,2100 [facility] Last Admin: 03/17/25 20:08 Dose: 2.5 mg Ascorbic Acid (Ascorbic Acid 500 Mg Tablet) 500 mg PO BID [facility] Last Admin: 03/17/25 17:21 Dose: 500 mg Dexamethasone (Dexamethasone 10 Mg/Ml Inj) 6 mg IVP Q24H [facility] Last Admin: 03/17/25 08:39 Dose: 6 mg Digoxin (Digoxin 125 Mcg Tablet) 125 mcg PO DAILY [facility] On Hold: 03/16/25 12:55 Last Admin: 03/16/25 08:11 Dose: 125 mcg Diltiazem HCl (Diltiazem Er (24hr) 120 Mg Capsule) 120 mg PO DAILY [facility] Last Admin: 03/17/25 08:38 Dose: 120 mg Azithromycin 500 mg/ Sodium (Chloride) 250 mls @ 250 mls/hr IV Q24H [facility]; Protocol Last Infusion: 03/17/25 22:04 Dose: Infused Piperacillin Sod/Tazobactam (Sod 3.375 gm/ Sodium Chloride) 50 mls @ 12.5 mls/hr IV Q8H [facility] Last Infusion: 03/18/25 03:59 Dose: Infused Vancomycin HCl 750 mg/ Sodium (Chloride) 250 mls @ 250 mls/hr IV Q12H [facility] Last Infusion: 03/17/25 23:57 Dose: Infused Ondansetron HCl (Ondansetron 2 Mg/Ml Sdv 2 Ml) 4 mg IVP Q6H PRN PRN Reason: NAUSEA AND VOMITING Last Admin: 03/17/25 08:39 Dose: 4 mg Pantoprazole Sodium (Pantoprazole Dr 40 Mg Tablet) 40 mg PO DAILY [facility] Last Admin: 03/17/25 08:38 Dose: 40 mg Vitamin D (Cholecalciferol (Vitamin D3) 1,000 Unit Tablet) 2,000 unit PO DAILY [facility] Last Admin: 03/17/25 08:39 Dose: 2,000 unit Zinc Gluconate (Zinc Gluconate 50 Mg Tablet) 50 mg PO DAILY [facility] Last Admin: 03/17/25 08:39 Dose: 50 mg Vitals/I&O/Wt Last Vital Signs Temp 98.2 F 03/17/25 13:30 Pulse 92 03/18/25 06:00 Resp 22 H 03/18/25 06:00 BP 126/81 03/18/25 06:00 Pulse Ox 93 03/18/25 06:00 O2 Del Method Room Air 03/17/25 18:00 O2 Flow Rate 2 03/14/25 10:45 03/17/25 03/18/25 03/18/25 22:59 06:59 14:59 Intake Total 822 / 1653.0909 500 / 2153.0909 Output Total 150 / 950 500 / 1450 Balance 672 / 703.0909 0 / 703.0909 Weight last 48 hrs Weight 59.6 kg Weight 58.6 kg Weight 61.5 kg Weight 61.5 kg Physical Exam 2 Narrative: Elderly lady lying in bed no apparent distress vital signs noted. HEENT normocephalic atraumatic Neck is supple Lungs have good air movement bilaterally Heart- is irregular irregular positive S1-S2 Abdomen is soft positive bowel sounds. Extremities bilateral edema of the legs Neuro awake alert oriented interactive moving Data 03/18/25 04:30 03/18/25 04:30 Micro: Microbiology 03/15/25 16:20 Urine Culture - Final Urine,Voided A&P Assessment and plan 1. Hyponatremia: 89 years lady history of breast cancer nonmelanoma skin cancer, hypertension hypothyroidism and osteoporosis. Patient was admitted yesterday for A-fib with RVR put on a Cardizem drip and amiodarone. Patient was found to have hyponatremia and COVID 19 positive. She was seen by my partner yesterday. Electrolytes bilaterally patient was put on very gentle IV fluids. Serum sodium improved to 128. 1. Hyponatremia: Low urine sodium. Sodium improved on steroids and with IV fluids Currently she is off of fluids and furosemide Patient has leg edema. will monitor off of diuretics BMP daily 2. Metabolic acidosis improved 3. Increased LFTs is improving 4. A-fib on diltiazem and amiodarone. Monitor digoxin levels. Her dig levels 1.6. Please decrease dose Will replace potassium. Will check digoxin level 4. Patient on antibiotics with Zosyn azithromycin Please monitor vancomycin level keep level under19 5 Patient on remdesivir for COVID Medications reviewed Seen and examined with nurse using her A/V equipment. Patient consents to telehealth. Discussed with patient and her daughter Plan: As above PDMP PDMP Reviewed: Not Reviewed Attestations 2 Medical Necessity Statement*: Per medical team. Atrial fibrillation well-controlled replace potassium. Sodium level is acceptable at 132 monitor on fluid restriction. Time Spent in Patient Care: 16 - 35 minutes (>than 50% of time sp ent in counselling and/or direct pt care on unit) . Coding Level of Care Code Acute Code for [facility] Diagnoses Hyponatremia E87.1
[2025-03-18] MEDS: piperacillin-tazobactam 3.375 GM in sodium chloride 0.9% (plus) 50 ML IV ×2 (08:20→16:49)
[2025-03-18] MEDS: dilTIAZem ER (24HR) 120 mg Capsule PO ×2 (08:59→09:37)
--- NOTE | 2025-03-18 09:11 | PC.NURSE ---
Dr. Benavides verbal order. 120mg PO once Cardizem, start tomorrow with 240mg once daily.
--- NOTE | 2025-03-18 09:52 | P.PN_ITS ---
Subjective 2 Subjective: Patient went into atrial fibrillation with RVR. Vitals/I&O/Wt Last Vital Signs Temp 98.2 F 03/17/25 13:30 Pulse 120 H 03/18/25 09:00 Resp 27 H 03/18/25 09:00 BP 146/122 03/18/25 09:00 Pulse Ox 95 03/18/25 09:00 O2 Del Method Room Air 03/18/25 09:00 O2 Flow Rate 2 03/14/25 10:45 03/17/25 03/18/25 03/18/25 22:59 06:59 14:59 Intake Total 822 / 1653.0909 500 / 2153.0909 480 / 480 Output Total 150 / 950 500 / 1450 500 / 500 Balance 672 / 703.0909 0 / 703.0909 -20 / -20 Weight last 48 hrs Weight 131 lb 6.328 oz Weight 129 lb 3.054 oz Weight 135 lb 9.349 oz Weight 135 lb 9.349 oz Physical Exam 2 Narrative: GENERAL: Patient is alert, awake and oriented x3. [] NECK: No jugular vein distension. [] HEENT: No cyanosis. No icterus. No pallor. [] HEART: Irregularly irregular, tachycardic LUNGS: Clear to auscultate bilaterally. [] CENTRAL NERVOUS SYSTEM: Grossly nonfocal. [] EXTREMITIES: Lower extremities with 1+ edema bilaterally. Data 03/19/25 04:57 03/19/25 04:57 Micro: Microbiology 03/15/25 16:20 Urine Culture - Final Urine,Voided A&P Assessment and plan 1. Atrial fibrillation: 2. COVID: 3. Elevated liver enzymes: 4. Hyponatremia: Plan: Uptitrate Cardizem. Switch back to amiodarone gtt. Start digoxin again at lower dose. Thank you for involving us in the care of this patient. Please call with questions.. PDMP PDMP Reviewed: Not Reviewed Attestations 2 Medical Necessity Statement*: Care expected to cross 2 midnights. Coding Level of Care Code Acute Code for [facility] Diagnoses Atrial fibrillation I48.91 COVID U07.1 Elevated liver enzymes R74.8 Hyponatremia E87.1
--- NOTE | 2025-03-18 09:56 | PC.NURSE ---
Called report to [facility] patient to go to room 112-2
--- NOTE | 2025-03-18 10:32 | PC.NURSE ---
Left message for patients daughter to call back with room assignment details. Patient transport to CSU by Leah, electrician substation supervisor.
--- NOTE | 2025-03-18 11:11 | PC.NURSE ---
Received pt from ICU Pt still on Afib w/rvr on monitor upon arrival. HR-120s to 130s. Per icu report, pt received 120 mg of diltiazem PO and 400 mg of Amiodarone PO this morning. BP-151/101. Pt denies any chest pain or SOB at rest. Pt stated she has episodes of palpitations and SOB w/exertion from moving to chair.
--- NOTE | 2025-03-18 11:20 | PC.NURSE ---
Informed it support consultant Pt's HR still sustaining on AFIB RVR HR-110s to 140s. BP 151/101, episode of palpitations and sob during exertion from bed to recliner. Received telephone orders read back to give one time 0.25 mg of PO digoxin and once 400 mg PO Amiodarone at 1 pm.
--- NOTE | 2025-03-18 12:00 | P.PN_ITS ---
Subjective 2 Subjective: Seen this morning. Patient back in [facility] with RVR. Heart rate 130s. Blood pressure also elevated Cardiology has uptitrated Cardizem. Digoxin was on hold due to supratherapeutic level. Will check dig level today. Subjectively patient feels better. Diarrhea is significantly improved. Vitals/I&O/Wt Last Vital Signs Temp 98.2 F 03/17/25 13:30 Pulse 130 H 03/18/25 11:52 Resp 14 03/18/25 10:06 BP 146/122 03/18/25 10:00 Pulse Ox 93 03/18/25 10:06 O2 Del Method Room Air 03/18/25 10:06 O2 Flow Rate 2 03/14/25 10:45 03/17/25 03/18/25 03/18/25 22:59 06:59 14:59 Intake Total 822 / 1653.0909 500 / 2153.0909 480 / 480 Output Total 150 / 950 500 / 1450 500 / 500 Balance 672 / 703.0909 0 / 703.0909 -20 / -20 Weight last 48 hrs Weight 59.6 kg Weight 58.6 kg Weight 61.5 kg Weight 61.5 kg Physical Exam 2 Narrative: General: Alert oriented x3, sitting up in chair. HEENT: Normocephalic, atraumatic, EOMI, Cardio: Irregularly irregular, tachycardic. Respiratory: Clear to auscultation bilaterally, no wheezes no rhonchi no crackles GI: Abdomen soft, nontender, nondistended, bowel sounds + Extremities: Bilateral lower extremity edema has resolved. Data 03/18/25 04:30 03/18/25 04:30 Micro: Microbiology 03/15/25 16:20 Urine Culture - Final Urine,Voided A&P Assessment and plan 1. Atrial fibrillation: 2. COVID: 3. Supplemental oxygen dependent: 4. Cough: 5. Hyponatremia: 6. High anion gap: 7. Elevated liver enzymes: 8. Leukocytosis: 9. Elevated troponin: 10. Lactic acidosis: Plan: #Atrial fibrillation with RVR #Enterra rhinovirus positive #Lactic acidosis #Leukocytosis #Hyponatremia #Supplemental oxygen requirement #Hypertension #Hyperlipidemia #Cough, shortness of breath #COVID-positive #Recent travel #Hypothyroidism ? Reviewed all of data from [facility] ? Will check repeat BMP, CBC, lactic acid, phosphorus, ABG, troponins, chest x- ray, BNP, respiratory panel, EKG ? Continue amiodarone drip ? Continue on heparin drip for new onset A-fib. ? Consult cardiology ? Discussed with pharmacy regarding remdesivir. Patient meets criteria for remdesivir at this time. There is no contraindication to being on amiodarone. She has new supplemental oxygen requirement therefore we will go ahead and order that for the patient. ? Check sputum culture Gram stain ? Check blood cultures ? Check chest x-ray, BNP ? Patient does not appear to be in heart failure clinically. ? Check echocardiogram ? Patient denies chest pain ? CRP elevated will trend. ? CT has ruled out PE at [facility] ? Sodium 121 at [facility]. Will recheck BMP. ? Check serum, urine osmolality, urine sodium ? Check BMP every 4 hours ? Consult nephrology - Will need to confirm home meds - Will wait to order iV fluids till urine sodium results - Order dexamethasone 6 IV daily Full code DVT prophylaxis: On heparin drip at this time 03/14/2025 Patient positive for enterorhinovirus and COVID Echocardiogram pending Patient met criteria for remdesivir therefore was given however patient's family does not want her to have any more doses of this. We will stop it per family request. Echocardiogram pending Patient remains in A-fib with RVR. Loaded with digoxin per cardiology. On Cardizem drip. BNP 11,000. Patient does not appear to be in overt heart failure clinically. She appears dehydrated instead. Lactic acid 2.8 overnight. We will repeat. Patient on gentle IV fluid hydration by nephrology. Sodium remains low at 121. Urine sodium less than 10. Osmolality 260 calculated. Serum osmolality pending. Troponins elevated but negative at 6 hours -12. CRP 213. Patient shortness of breath cough is multifactorial secondary to Enterra rhinovirus and possibly symptomatic COVID. Cardiology has been consulted. Will appreciate recommendations. Blood pressure stable. Patient's oxygen is trended down to 2 L nasal cannula. She will require DuoNeb every 6 hours. Discussed with respiratory therapy. Experiencing wheezing and rhonchi this morning. Continue dexamethasone 6 IV daily WBC count 25,000 possibly reactive to steroids versus to underlying infection or occult pneumonia. Continue Zosyn at this time. Chest x-ray did show bilateral pleural effusions mild pulmonary vascular congestion. Continue heparin drip. 03/15/2025 Seen this morning. Patient positive for Enterra rhinovirus and COVID. Respiratory gutierrez she seems to be doing really well. Is on room air. Denies any shortness of breath or conversational dyspnea. Lungs are clear to auscultation today. Patient with daughter at bedside. Discussed patient's care with her I will add vitamin D and vitamin C and zinc to her regimen. I do not believe her symptoms were due to COVID itself. My suspicion is that her rhinovirus is what started off her cough and sinus pressure initially and her requirement of oxygen was secondary to possible vascular congestion and bilateral pleural effusions. BNP most likely secondary to pulmonary cause rather than cardiac. Clinically she does not appear to be in overt heart failure. Discussed with cardiology at length today. Lactic acid 4.0 overnight with 14 of bicarb. Bicarb this morning improved to 20, chloride 90, sodium 127, creatinine 0.9. Will repeat lactic acid Phosphorus is 1.4. Order phosphate neutral 250 twice daily x 3 doses total Magnesium 2.0. WBC count 35,000. Will check blood cultures, stool culture. Check C. difficile. Possibility of leukemoid reaction CT chest abdomen pelvis shows multifocal bilateral airspace opacities the pattern suggest pneumonitis. This may be possible due to COVID versus true bacterial pneumonia. She has been afebrile. Clinically she is improving. Will check peripheral smear Check leukemia lymphoma profile Official echo results are still pending. Discussed with solar process engineer today in the morning. Continue vancomycin and Zosyn and azithromycin (for atypical coverage) Appreciate nephrology recommendations. 03/16/2025 White count trending down. Continue Vanco Zosyn azithromycin Covering for pneumonia Digoxin level supratherapeutic today 1.6 Hold digoxin dose going forward. Patient not bradycardic. Retest for C. difficile. Continue dexamethasone 6 x 10 days total. Continue amiodarone 400 twice daily Appreciate recommendations from cardiology Patient's albumin level is 2.9. She may be third spacing and hence the bilateral lower extremity edema. Corrected calcium normal for albumin. Nephrology following. Appreciate recs. May transfer to CICU today. 03/17/2025 continue vanc and zosyn check dig level dexamethasone 6 IV daily x 7 days total c.diff negative continue immodium PRN diarrhea starting to slow down amiodarone 400 mg BID x 7 days total then transition to 400 mg x 7 days and then 200 mg daily thereafter continue phospha neutral 250 BID continue eliquis 2.5 BID cardizem 120 daily check PT/OT transfer to CSU 03/18/2025 switch to cardizem 240 daily c.diff negative x2 immodium PRN however will hold further doses WBC 18K today, possibly due to steroids, i will descalate steroids today. Stop dexamethasone. Patient is now on room air and not having any respiratory distress or difficulty breathing. she has completed 5 days of dexamethasone. diarrhea improving stool cultures pending recommend ID consult check dig level today continue amio 400 BID cardio on board still in afib RVR transfer to CSU today Order hydralazine 5 IV x 1 Discussed with cardiology PDMP PDMP Reviewed: Not Reviewed Attestations 2 Medical Necessity Statement*: A-fib with RVR, COVID pneumonia, Enterra rhinovirus, hyponatremia. Diagnoses Atrial fibrillation I48.91 COVID U07.1 Supplemental oxygen dependent Z99.81 Cough R05.9 Hyponatremia E87.1 High anion gap E87.8 Elevated liver enzymes R74.8 Leukocytosis D72.829 Elevated troponin R79.89 Lactic acidosis E87.20
[2025-03-18 12:45] LABS: Digoxin 1.1 ng/mL (0.6-1.2)
[2025-03-18] MEDS: hyDRALAzine 20 mg/mL INJ 1 mL 5 MG IVP (13:29)
[2025-03-19] VITALS (9 sets, daily range): BP systolic 138–154; BP diastolic 80–101; PULSE 87–125; RESP 15–24; TEMP 36.5–36.8; O2SAT 94–97
[2025-03-19] MEDS: piperacillin-tazobactam 3.375 GM in sodium chloride 0.9% (plus) 50 ML IV ×4 (00:24→23:53)
[2025-03-19 05:07] LABS: Hematocrit 37.1 % (36-47); Hemoglobin 12.40 g/dL (11.27-16.99); Mean Corpuscular HGB Conc 33.4 g/dL (30-55); Mean Corpuscular Hemoglobin 30.8 pg (27-33); Mean Corpuscular Volume 92.1 fl (85-98); Nucleated Red Blood Cells % 0 %; Platelet Count 320 10^3/cmm (157-399); Red Blood Count 4.03 10^6/uL (3.85-5.65); White Blood Count 20.62 10^3/uL (3.29-11.43)
[2025-03-19 05:34] LABS: Alanine Aminotransferase 45 U/L (0-33); Albumin Level 3.0 g/dL (3.5-5.2); Alkaline Phosphatase 65 U/L (35-105); Anion Gap 14.4 (5-19); Aspartate Amino Transferase 18 U/L (0-32); Blood Urea Nitrogen 14 mg/dL (8-23); Calcium 7.6 mg/dL (8.5-10.5); Carbon Dioxide 23 mmol/L (22-29); Chloride 101 mmol/L (98-107); Creatinine Clr Calc Pharmacy 36.9026; Globulin 2.3 g/dL (1.3-4.6); Glucose 134 mg/dL (65-115); Magnesium 2.1 mg/dL (1.7-2.3); Osmolality Calculated 282 mOsm/kg (285-295); Potassium 3.4 mmol/L (3.5-5.1); Sodium 135 mmol/L (136-145); Total Protein 5.3 g/dL (6.6-8.7)
[2025-03-19 05:53] LABS: Digoxin 2.1 ng/mL (0.6-1.2)
[2025-03-19] MEDS: dilTIAZem ER (24HR) 240 mg Capsule PO (09:12)
--- NOTE | 2025-03-19 09:30 | PC.NURSE ---
spoke with patient regarding her mastectomy of left breast and the extremity restriction she was un awear of any restriction mastectomy greater than 10 years educated patient about risks she reported that we had to do it due to the other extremity being all sore from multiple IVs patient in aberrance to have an IV placed in left arm
--- NOTE | 2025-03-19 09:54 | PM.PN ---
Subjective Subjective: The patient was seen and examined. The patient is pleasantly confused. No new complaints no nausea no vomiting. Not clear if she is eating. She is not answering appropriately. Medications: Reviewed: Yes Medication Review Details: Current Medications Acetaminophen (Acetaminophen 325 Mg Tablet) 650 mg PO Q6H PRN PRN Reason: MILD PAIN Albuterol/Ipratropium (Ipratropium-Albuterol 3 Ml Neb) 3 ml INHALATION Q4H.RESPIRATORY PRN PRN Reason: SHORTNESS OF BREATH Last Admin: 03/14/25 21:08 Dose: 3 ml Amiodarone HCl (Amiodarone 200 Mg Tablet) 400 mg PO BID [facility] Last Admin: 03/19/25 09:11 Dose: 400 mg Apixaban (Apixaban 5 Mg Tablet) 2.5 mg PO BID@0900,2100 [facility] Last Admin: 03/19/25 09:11 Dose: 2.5 mg Ascorbic Acid (Ascorbic Acid 500 Mg Tablet) 500 mg PO BID [facility] Last Admin: 03/19/25 09:12 Dose: 500 mg Digoxin (Digoxin 125 Mcg Tablet) 62.5 mcg PO DAILY [facility] On Hold: 03/19/25 09:00 Diltiazem HCl (Diltiazem Er (24hr) 240 Mg Capsule) 240 mg PO DAILY [facility] Last Admin: 03/19/25 09:12 Dose: 240 mg Azithromycin 500 mg/ Sodium (Chloride) 250 mls @ 250 mls/hr IV Q24H [facility]; Protocol Last Infusion: 03/18/25 19:54 Dose: Infused Piperacillin Sod/Tazobactam (Sod 3.375 gm/ Sodium Chloride) 50 mls @ 12.5 mls/hr IV Q8H [facility] Last Admin: 03/19/25 09:09 Dose: 12.5 mls/hr Vancomycin HCl 750 mg/ Sodium (Chloride) 250 mls @ 250 mls/hr IV Q12H [facility] Last Infusion: 03/19/25 00:26 Dose: Infused Amiodarone HCl/Dextrose (Nexterone) 360 mg in 200 mls @ 0 mls/hr IV .Q0M [facility]; Protocol Last Titration: 03/18/25 22:24 Dose: 0.5 mg/min, 16.67 mls/hr Loperamide HCl (Loperamide 2 Mg Capsule) 2 mg PO BID PRN On Hold: 03/18/25 12:15 PRN Reason: DIARRHEA Ondansetron HCl (Ondansetron 2 Mg/Ml Sdv 2 Ml) 4 mg IVP Q6H PRN PRN Reason: NAUSEA AND VOMITING Last Admin: 03/17/25 08:39 Dose: 4 mg Pantoprazole Sodium (Pantoprazole Dr 40 Mg Tablet) 40 mg PO DAILY [facility] Last Admin: 03/19/25 09:12 Dose: 40 mg Vitamin D (Cholecalciferol (Vitamin D3) 1,000 Unit Tablet) 2,000 unit PO DAILY [facility] Last Admin: 03/19/25 09:12 Dose: 2,000 unit Zinc Gluconate (Zinc Gluconate 50 Mg Tablet) 50 mg PO DAILY [facility] Last Admin: 03/19/25 09:12 Dose: 50 mg Vitals/I&O/Wt Last Vital Signs Temp 98.3 F 03/19/25 08:00 Pulse 87 03/19/25 08:28 Resp 16 03/19/25 08:28 BP 139/92 03/19/25 08:00 Pulse Ox 94 03/19/25 08:28 O2 Del Method Room Air 03/19/25 08:28 O2 Flow Rate 2 03/14/25 10:45 03/18/25 03/19/25 03/19/25 22:59 06:59 14:59 Intake Total 766.092 / 1786.092 323.333 / 2109.425 240 / 240 Output Total 150 / 650 500 / 1150 360 / 360 Balance 616.092 / 1136.092 -176.667 / 959.425 -120 / -120 Weight last 48 hrs Weight 56.654 kg Weight 56.654 kg Weight 59.6 kg Weight 58.6 kg Physical Exam Narrative: Elderly lady lying in bed no apparent distress vital signs noted. HEENT normocephalic atraumatic Neck is supple Lungs have good air movement bilaterally Heart- is irregular irregular positive S1-S2 Abdomen is soft positive bowel sounds. Extremities bilateral trace edema of the legs Neuro awake alert oriented interactive moving Data 03/19/25 04:57 03/19/25 04:57 Micro: Microbiology 03/15/25 10:20 Salmonella/Shigella Culture - Final Stool A&P Assessment and plan 1. Hyponatremia: 89 years lady history of breast cancer nonmelanoma skin cancer, hypertension hypothyroidism and osteoporosis. Patient was admitted yesterday for A-fib with RVR put on a Cardizem drip and amiodarone. Patient was found to have hyponatremia and COVID 19 positive. She was seen by my partner yesterday. Electrolytes bilaterally patient was put on very gentle IV fluids. Serum sodium improved to 128. 1. Hyponatremia: Low urine sodium. Sodium improved on steroids and with IV fluids Currently she is off of fluids and furosemide Monitor off of diuretics and fluids sodium appears to be improving. She is urinating and eating BMP daily 2. Replace potassium 3 metabolic acidosis and abnormal LFTs are improving 4. A-fib on diltiazem and amiodarone. Monitor digoxin levels. Her dig levels 2.1 Please decrease dose Will monitor digoxin level 5. Patient on antibiotics with Zosyn azithromycin Please monitor vancomycin level keep level under19 6 Patient completed remdesivir for COVID Medications reviewed Seen and examined with nurse using her A/V equipment. Patient consents to telehealth. Discussed with patient and her daughter Plan: As above PDMP PDMP Reviewed: Not Reviewed Attestations Medical Necessity Statement*: As per hospitalist Time Spent in Patient Care: 16 - 35 minutes (>than 50% of time spent in counselling and/or direct pt care on unit). Coding Level of Care Code Acute Code for [facility] Diagnoses Hyponatremia E87.1
--- NOTE | 2025-03-19 09:55 | PC.SOCIAL ---
IMM Update Pg. 2 of IMM updated and reviewed with patient, who verbalized understanding. Copy provided at bedside.
--- NOTE | 2025-03-19 11:44 | P.PN_ITS ---
<Statement entered by Yoandy Benavides M.D - 03/20/25 10:07> Patient was cared for in conjunction with an advanced practice practitioner.? I reviewed the chart and all pertinent data including imaging, telemetry, and laboratory results.? I discussed the patient in detail with the advanced practice practitioner.? Please see?their note for progress note, testing results and agreed upon plan of care for the patient. Subjective 2 Subjective: She remains in atrial fibrillation with RVR, heart rates running in the 90s to 120s. Plan to restart digoxin, yesterday digoxin level 1.1, today 2.1 without any doses administered since the digoxin load on 03/18/2025. Renal function is normal. May need to discontinue, will continue to monitor levels closely. Vitals/I&O/Wt Last Vital Signs Temp 98.3 F 03/19/25 08:00 Pulse 110 H 03/19/25 10:46 Resp 16 03/19/25 08:28 BP 139/92 03/19/25 08:00 Pulse Ox 94 03/19/25 08:28 O2 Del Method Room Air 03/19/25 08:28 O2 Flow Rate 2 03/14/25 10:45 03/18/25 03/19/25 03/19/25 22:59 06:59 14:59 Intake Total 766.092 / 2109.425 323.333 / 2109.425 440 / 440 Output Total 150 / 1150 500 / 1150 360 / 360 Balance 616.092 / 959.425 -176.667 / 959.425 80 / 80 Weight last 48 hrs Weight 124 lb 14.4 oz Weight 124 lb 14.4 oz Weight 131 lb 6.328 oz Weight 129 lb 3.054 oz Physical Exam 2 Const: COMMON NORMALS: no acute distress and patient oriented x3 Chest: COMMONS NORMALS: normal inspection of the chest and normal palpation of entire chest wall CHEST: Yes Symmetrical chest wall rise Resp: COMMON NORMALS: normal respiratory effort, No retractions and No use of accessory muscles EFFORT & INSPECTION: Yes symmetric chest movement A USCULTATION: crackles (bases) Laterality: bilateral and posterior Cardio: COMMON NORMALS: S1 normal heart sound present, S2 normal heart sound present, No gallops present (Cardio), No clicks present (Cardio), No murmurs present (Cardio) and No rub (Cardio) RATE: tachycardic RHYTHM: abnormal rhythm irregularly irregular HEART SOUNDS: S1 normal heart sound present and S2 normal heart sound present PERIPHERAL PULSES: radial pulses present, posterior tibial pulses present and dorsalis pedis present Neuro: COMMON NORMALS: patient oriented x3 and moves all extremities Psych: COMMON NORMALS: mental status grossly normal and cooperative Data 03/19/25 04:57 03/19/25 04:57 Micro: Microbiology 03/15/25 10:20 Salmonella/Shigella Culture - Final Stool A&P Assessment and plan 1. Atrial fibrillation: 2. COVID: 3. Elevated liver enzymes: 4. Hyponatremia: Plan: Can uptitrate diltiazem to 360 mg daily if rate control is inadequate, will attempt to restart digoxin depending on levels. Otherwise stable from a cardiovascular perspective. PDMP PDMP Reviewed: Not Reviewed Attestations 2 Medical Necessity Statement*: Atrial fibrillation with RVR Coding Level of Care Code Acute Code for [facility] Diagnoses Atrial fibrillation I48.91 COVID U07.1 Elevated liver enzymes R74.8 Hyponatremia E87.1
[2025-03-19] MEDS: dilTIAZem ER (12HR) 60 mg Capsule PO (13:48)
--- NOTE | 2025-03-19 15:43 | P.PN_ITS ---
Subjective 2 Subjective: Hospital course, labs appreciated. Seen with family at bedside. Patient currently on amiodarone drip with heart rate running in high 90s to low 100s at rest going up to 110s on exertion. Patient states she does not have any difficulty in breathing, chest pain or feel palpitations. Otherwise hemodynamically stable. Having multiple episodes of diarrhea as per nursing staff. Vitals/I&O/Wt Last Vital Signs Temp 98.3 F 03/19/25 08:00 Pulse 98 03/19/25 12:00 Resp 15 03/19/25 12:00 BP 138/89 03/19/25 12:00 Pulse Ox 97 03/19/25 12:00 O2 Del Method Room Air 03/19/25 08:28 O2 Flow Rate 2 03/14/25 10:45 03/19/25 03/19/25 03/19/25 06:59 14:59 22:59 Intake Total 323.333 / 2109.425 980 / 980 Output Total 500 / 1150 360 / 360 300 / 660 Balance -176.667 / 959.425 620 / 620 -300 / 320 Weight last 48 hrs Weight 56.654 kg Weight 56.654 kg Weight 59.6 kg Weight 58.6 kg Physical Exam 2 Narrative: General: Alert oriented x3, sitting up in chair. HEENT: Normocephalic, atraumatic, EOMI, Cardio: Irregularly irregular, tachycardic. Respiratory: Clear to auscultation bilaterally, no wheezes no rhonchi no crackles GI: Abdomen soft, nontender, nondistended, bowel sounds + Extremities: Bilateral lower extremity edema has resolved. Data 03/19/25 04:57 03/19/25 04:57 Micro: Microbiology 03/15/25 10:20 Salmonella/Shigella Culture - Final Stool A&P Assessment and plan 1. Atrial fibrillation: With rapid ventricular response. Heart rate uncontrolled. Please started on amiodarone drip yesterday. Continue with oral amiodarone 400 mg twice daily. Received digoxin earlier in the admission. Was withheld over the weekend for possible supratherapeutic levels. Levels on .1. Today 2.1. Please start at 62.5 mcg today. Takes Cardizem to 40 mg daily at home. Will uptitrate to 360 mg daily. Start on 90 mg Q6 hourly today. Monitor blood pressures. If needed will increase the dose of digoxin. Echocardiogram done shows an EF of 60 to 65% with biatrial enlargement, moderate pulmonary hypertension. Discussed in detail with patient and family at bedside regarding possible need for anticoagulation for stroke prevention with merits and demerits. Family verbalized understanding and patient is agreeable to start on anticoagulation. For now continue with Eliquis 2.5 mg twice daily. 2. COVID: Mild disease. Oxygen supplementation keeping saturation over 88%. Dexamethasone 6 mg daily. Did not get remdesivir during hospitalization. Pulmonary toilet with incentive spirometry flutter valve. We will monitor inflammatory markers including CRP every 48 hours. Monitor fluid status. 3. Supplemental oxygen dependent: Currently on room air. 4. Cough: 5. Hyponatremia: Improving. Up to 135. Most likely in setting of dehydration from poor oral intake. Hold off on fluid and diuresis for now. 6. High anion gap: 7. Elevated liver enzymes: 8. Leukocytosis: 9. Elevated troponin: 10. Lactic acidosis: Plan: Hypokalemia: Replace with 40 mg oral potassium. Diarrhea: C. difficile reported negative. Most likely in setting of COVID-19. Imodium as needed. Leukocytosis: Most likely in reaction to steroids. Continue with dexamethasone for 5 more days. Patient has finished 5-day course of Zosyn and vancomycin. For now we will discontinue. Monitor off antibiotics. Hypertension: Goal blood pressure less than 140/90 mmHg. Continue to monitor blood pressures. Full code Regular diet Protonix for PUD prophylaxis Eliquis for DVT prophylaxis. PDMP PDMP Reviewed: Not Reviewed Attestations 2 Medical Necessity Statement*: Requires further hospitalization for management of A-fib with RVR in a patient admitted for COVID-19 Diagnoses Atrial fibrillation I48.91 COVID U07.1 Supplemental oxygen dependent Z99.81 Cough R05.9 Hyponatremia E87.1 High anion gap E87.8 Elevated liver enzymes R74.8 Leukocytosis D72.829 Elevated troponin R79.89 Lactic acidosis E87.20
[2025-03-20] VITALS (8 sets, daily range): BP systolic 129–163; BP diastolic 54–95; PULSE 65–84; RESP 18–21; TEMP 36.1–37; O2SAT 92–96
[2025-03-20 04:27] LABS: Alanine Aminotransferase 39 U/L (0-33); Albumin Level 3.3 g/dL (3.5-5.2); Alkaline Phosphatase 68 U/L (35-105); Anion Gap 17.1 (5-19); Aspartate Amino Transferase 16 U/L (0-32); Blood Urea Nitrogen 15 mg/dL (8-23); Calcium 7.9 mg/dL (8.5-10.5); Carbon Dioxide 22 mmol/L (22-29); Chloride 98 mmol/L (98-107); Creatinine Clr Calc Pharmacy 36.9026; Globulin 2.2 g/dL (1.3-4.6); Glucose 156 mg/dL (65-115); Magnesium 2.0 mg/dL (1.7-2.3); Osmolality Calculated 280 mOsm/kg (285-295); Potassium 4.1 mmol/L (3.5-5.1); Sodium 133 mmol/L (136-145); Total Protein 5.5 g/dL (6.6-8.7)
[2025-03-20] MEDS: piperacillin-tazobactam 3.375 GM in sodium chloride 0.9% (plus) 50 ML IV (08:09)
[2025-03-20] MEDS: ondansetron 2 mg/ML SDV 2 mL 4 MG IVP (08:27)
--- NOTE | 2025-03-20 09:56 | ECG_ITS ---
[facility] Test Date: 2025-03-20 Pat Name: Dana Arias Department: Room: 112 Gender: Female Results Technician: : [id number] Requested By: Yoandy Benavides Order Number: [id number] Caitlin MD: Ryan Hsu M.D. Measurements Intervals [place] Rate: 71 P: 35 WI: 177 QRS: -7 QRSD: 97 T: 4 QT: 473 QTc: 516 Interpretive Statements SINUS RHYTHM ST DEVIATION AND MODERATE T-WAVE ABNORMALITY, CONSIDER ANTEROLATERAL ISCHEMIA [-0.1+ mV T-WAVE IN V3-V6] ST DEVIATION AND MODERATE T-WAVE ABNORMALITY, CONSIDER INFERIOR ISCHEMIA [-0.1+ mV T-WAVE IN II/aVF] Compared to ECG 03/13/2025 17:27:41 T-wave abnormality now present Possible ischemia now present Atrial fibrillation no longer present Electronically Signed On 03-21-2025 09:25:53 CDT by Ryan Hsu M.D. [email or web address]
--- NOTE | 2025-03-20 10:04 | P.PN_ITS ---
Subjective 2 Subjective: Patient is nausea not eating well little diarrhea. Converted to sinus rhythm overnight. Denies shortness of breath no chest pain no edema. No headaches Medications: Reviewed: Yes Medication Review Details: Current Medications Acetaminophen (Acetaminophen 325 Mg Tablet) 650 mg PO Q6H PRN PRN Reason: MILD PAIN Amiodarone HCl (Amiodarone 200 Mg Tablet) 400 mg PO BID [facility] Last Admin: 03/20/25 08:10 Dose: 400 mg Apixaban (Apixaban 5 Mg Tablet) 2.5 mg PO BID@0900,2100 [facility] Last Admin: 03/20/25 08:12 Dose: 2.5 mg Ascorbic Acid (Ascorbic Acid 500 Mg Tablet) 500 mg PO BID [facility] Last Admin: 03/20/25 08:10 Dose: 500 mg Dexamethasone (Dexamethasone 10 Mg/Ml Inj) 6 mg PO Q24H [facility] Last Admin: 03/19/25 16:37 Dose: 6 mg Diltiazem HCl (Diltiazem 60 Mg Tablet) 90 mg PO Q6H [facility] Last Admin: 03/20/25 04:30 Dose: 90 mg Piperacillin Sod/Tazobactam (Sod 3.375 gm/ Sodium Chloride) 50 mls @ 12.5 mls/hr IV Q8H [facility] Last Admin: 03/20/25 08:09 Dose: 12.5 mls/hr Vancomycin HCl 750 mg/ Sodium (Chloride) 250 mls @ 250 mls/hr IV Q12H [facility] Last Infusion: 03/19/25 23:54 Dose: Infused Amiodarone HCl/Dextrose (Nexterone) 360 mg in 200 mls @ 0 mls/hr IV .Q0M [facility]; Protocol Last Titration: 03/20/25 08:45 Dose: 0 mg/min, 0 mls/hr Azithromycin 500 mg/ Sodium (Chloride) 250 mls @ 250 mls/hr IV Q24H [facility]; Protocol Last Infusion: 03/19/25 22:38 Dose: Infused Loperamide HCl (Loperamide 2 Mg Capsule) 2 mg PO BID PRN PRN Reason: DIARRHEA Ondansetron HCl (Ondansetron 2 Mg/Ml Sdv 2 Ml) 4 mg IVP Q6H PRN PRN Reason: NAUSEA AND VOMITING Last Admin: 03/20/25 08:27 Dose: 4 mg Pantoprazole Sodium (Pantoprazole Dr 40 Mg Tablet) 40 mg PO DAILY [facility] Last Admin: 03/20/25 08:10 Dose: 40 mg Vitamin D (Cholecalciferol (Vitamin D3) 1,000 Unit Tablet) 2,000 unit PO DAILY [facility] Last Admin: 03/20/25 08:10 Dose: 2,000 unit Zinc Gluconate (Zinc Gluconate 50 Mg Tablet) 50 mg PO DAILY [facility] Last Admin: 03/20/25 08:10 Dose: 50 mg Vitals/I&O/Wt Last Vital Signs Temp 97.7 F 03/20/25 08:00 Pulse 75 03/20/25 08:12 Resp 20 H 03/20/25 08:00 BP 158/76 03/20/25 08:00 Pulse Ox 93 03/20/25 08:00 O2 Del Method Room Air 03/20/25 08:00 O2 Flow Rate 2 03/14/25 10:45 03/19/25 03/20/25 03/20/25 22:59 06:59 14:59 Intake Total 494.483 / 1474.483 300 / 1774.483 169.201 / 169.201 Output Total 500 / 860 100 / 960 100 / 100 Balance -5.517 / 614.483 200 / 814.483 69.201 / 69.201 Weight last 48 hrs Weight 51.256 kg Weight 56.654 kg Weight 56.654 kg Physical Exam 2 Narrative: Elderly lady lying in bed no apparent distress vital signs noted. HEENT normocephalic atraumatic Neck is supple Lungs have rt base dullness Heart-RRR, positive S1-S2, +ONDINA Abdomen is soft positive bowel sounds. Extremities bilateral trace edema of the legs Neuro awake alert oriented interactive moving Data 03/19/25 04:57 03/20/25 03:15 Micro: Microbiology 03/15/25 10:20 E. coli Shiga-like Toxin (PCR) - Final Stool Salmonella/Shigella Culture - Final Campylobacter (PCR) - Final A&P Assessment and plan 1. Hyponatremia: 89 years lady history of breast cancer nonmelanoma skin cancer, hypertension hypothyroidism and osteoporosis. Patient was admitted yesterday for A-fib with RVR put on a Cardizem drip and amiodarone. Patient was found to have hyponatremia and COVID 19 positive. She was seen by my partner yesterday. Electrolytes bilaterally patient was put on very gentle IV fluids. Serum sodium improved to 128. 1. Hyponatremia: Low urine sodium. Sodium improved on steroids and with IV fluids Currently she is off of fluids and furosemide Mild drop in na overnight -ensure that she is eating well, if not she may need ivf 2. Her potassium improved 3 metabolic acidosis and abnormal LFTs are improving 4. A-fib on diltiazem and amiodarone. Monitor digoxin levels. Her dig levels 2.1 now in NSR 5. Patient on antibiotics with Zosyn azithromycin Please monitor vancomycin level keep level under19 -please dec dose 6 COVID per hospitalist Medications reviewed Seen and examined with nurse using her A/V equipment. Patient consents to telehealth. Discussed with patient and her daughter Plan: As above PDMP PDMP Reviewed: Not Reviewed Attestations 2 Medical Necessity Statement*: per hospitalist Time Spent in Patient Care: 16 - 35 minutes (>than 50% of time sp ent in counselling and/or direct pt care on unit) . Coding Level of Care Code Acute Code for [facility] Diagnoses Hyponatremia E87.1
[2025-03-20 11:06] LABS: Procalcitonin 0.04 ng/mL (0-0.5)
[2025-03-20 11:26] LABS: Estmated Average Glucose 126; Hemoglobin A1C 6.0 % (4.0-6.0)
[2025-03-20] MEDS: lactobacillus 1 Tablet 1 TAB PO ×2 (11:56→18:33)
[2025-03-20 12:05] LABS: Digoxin 1.8 ng/mL (0.6-1.2)
[2025-03-20] MEDS: vancomycin 500 MG in sodium chloride 0.9% (plus) 100 ML 200 MG IV (12:10)
[2025-03-20 12:21] LABS: MRSA PCR OZH (swab) NOT DETECTED (Not Detecte)
--- NOTE | 2025-03-20 13:43 | P.PN_ITS ---
Subjective 2 Subjective: No acute events overnight. Seen with family at bedside. Patient converted to normal sinus rhythm overnight. Heart rate mostly running in high 60s to low 70s. Patient states she is feeling better. Denies any nausea, vomiting, headache. Remains on room air. Vitals/I&O/Wt Last Vital Signs Temp 97.7 F 03/20/25 08:00 Pulse 75 03/20/25 08:12 Resp 20 H 03/20/25 08:00 BP 158/76 03/20/25 08:00 Pulse Ox 93 03/20/25 08:00 O2 Del Method Room Air 03/20/25 08:00 O2 Flow Rate 2 03/14/25 10:45 03/19/25 03/20/25 03/20/25 22:59 06:59 14:59 Intake Total 494.483 / 1474.483 300 / 1774.483 799.201 / 799.201 Output Total 500 / 860 100 / 960 100 / 100 Balance -5.517 / 614.483 200 / 814.483 699.201 / 699.201 Weight last 48 hrs Weight 51.256 kg Weight 56.654 kg Weight 56.654 kg Physical Exam 2 Narrative: General: Alert oriented x3, sitting up in chair. HEENT: Normocephalic, atraumatic, EOMI, Cardio: Irregularly irregular, tachycardic. Respiratory: Clear to auscultation bilaterally, no wheezes no rhonchi no crackles GI: Abdomen soft, nontender, nondistended, bowel sounds + Extremities: Bilateral lower extremity edema has resolved. Data 03/19/25 04:57 03/20/25 03:15 Micro: Microbiology 03/15/25 12:18 Blood Culture - Final Blood NO GROWTH AFTER 5 DAYS 03/15/25 10:20 E. coli Shiga-like Toxin (PCR) - Final Stool Salmonella/Shigella Culture - Final Campylobacter (PCR) - Final A&P Assessment and plan 1. Atrial fibrillation: With rapid ventricular response. Heart rate uncontrolled. Continue with amiodarone 400 mg twice daily, Cardizem at 90 mg every 6 hour. , To normal sinus rhythm in AM. Recheck digoxin levels. If elevated can hold off on any further digoxin. Echocardiogram done shows an EF of 60 to 65% with biatrial enlargement, moderate pulmonary hypertension. Discussed in detail with patient and family at bedside regarding possible need for anticoagulation for stroke prevention with merits and demerits. Family verbalized understanding and patient is agreeable to start on anticoagulation. For now continue with Eliquis 2.5 mg twice daily. 2. COVID: Mild disease. Oxygen supplementation keeping saturation over 88%. Dexamethasone 6 mg daily. Will finish a 10-day course. Did not get remdesivir during hospitalization. Pulmonary toilet with incentive spirometry flutter valve. We will monitor inflammatory markers including CRP every 48 hours. Monitor fluid status. 3. Supplemental oxygen dependent: Currently on room air. 4. Cough: 5. Hyponatremia: Improving. Up to 135. Most likely in setting of dehydration from poor oral intake. Hold off on fluid and diuresis for now. 6. High anion gap: 7. Elevated liver enzymes: 8. Leukocytosis: 9. Elevated troponin: 10. Lactic acidosis: Plan: Hypokalemia: Replace with 40 mg oral potassium. Diarrhea: C. difficile reported negative. Most likely in setting of COVID-19. Imodium as needed. Leukocytosis: Most likely in reaction to steroids. Continue with dexamethasone for 5 more days. Continue with IV Zosyn. MRSA swab negative. Discontinue vancomycin. Will finish a 5-day course of Zosyn. Hypertension: Goal blood pressure less than 140/90 mmHg. Continue to monitor blood pressures. If blood pressures remain elevated low-dose hydralazine. Full code Regular diet Protonix for PUD prophylaxis Eliquis for DVT prophylaxis. Discharge plan: Plan to discharge within next 24 hours to home if patient remains in normal sinus rhythm and hemodynamically stable with home health. PDMP PDMP Reviewed: Not Reviewed Attestations 2 Medical Necessity Statement*: Requires further hospitalization for management of A-fib with RVR COPD exacerbation in setting of COVID-19 in an elderly female Diagnoses Atrial fibrillation I48.91 COVID U07.1 Supplemental oxygen dependent Z99.81 Cough R05.9 Hyponatremia E87.1 High anion gap E87.8 Elevated liver enzymes R74.8 Leukocytosis D72.829 Elevated troponin R79.89 Lactic acidosis E87.20
[2025-03-20 19:22] LABS: Iron 49 ug/dL (37-145); Total Iron Binding Capacity 224 mcg/dl; Unsaturated Iron Binding 175 ug/dL (112-347)
[2025-03-21 02:20] LABS: Vitamin B12 1472 pg/mL (232-1245)
[2025-03-21 04:00] VITALS: BP 141/62; PULSE 66; RESP 22; TEMP 37.2; O2SAT 92
[2025-03-21 04:36] LABS: Digoxin 1.2 ng/mL (0.6-1.2)
[2025-03-21 04:41] LABS: Alanine Aminotransferase 33 U/L (0-33); Albumin Level 3.1 g/dL (3.5-5.2); Alkaline Phosphatase 61 U/L (35-105); Anion Gap 14.6 (5-19); Aspartate Amino Transferase 13 U/L (0-32); Blood Urea Nitrogen 23 mg/dL (8-23); Calcium 8.2 mg/dL (8.5-10.5); Carbon Dioxide 24 mmol/L (22-29); Chloride 99 mmol/L (98-107); Creatinine Clr Calc Pharmacy 28.9881; Globulin 2.5 g/dL (1.3-4.6); Glucose 147 mg/dL (65-115); Magnesium 2.1 mg/dL (1.7-2.3); Osmolality Calculated 284 mOsm/kg (285-295); Potassium 3.6 mmol/L (3.5-5.1); Sodium 134 mmol/L (136-145); Total Protein 5.6 g/dL (6.6-8.7)
[2025-03-21 08:00] VITALS: BP 145/68; PULSE 85; RESP 24; TEMP 37.1; O2SAT 93
[2025-03-21] MEDS: lactobacillus 1 Tablet 1 TAB PO (08:08)
--- NOTE | 2025-03-21 08:47 | PM.DCS ---
Discharge Providers Date of Admission: 03/13/25 16:00 Date of Discharge: March 21, 2025 Attending Provider at Admission: Amy Anderson MD Attending Provider at Discharge: Ramu Fowler MD Consults: Cardiology: Dr. Benavides Primary Care Provider: Riya Funk MD Diagnoses at Discharge Discharge Diagnosis 1. Atrial fibrillation: 2. COVID: 3. Supplemental oxygen dependent: 4. Cough: 5. Hyponatremia: 6. High anion gap: 7. Elevated liver enzymes: 8. Leukocytosis: 9. Elevated troponin: 10. Lactic acidosis: Reason for Visit Reason for Visit: Covid+ / AFIB / Acute Resp Fail Brief History: Per HPI: Dana Arias is a 89 year old female With past medical history of breast cancer, nonmelanoma skin cancer, hypertension, hypothyroidism, osteoporosis presented to the hospital today from [facility] for complaint of atrial fibrillation with RVR. Patient was maximized on Cardizem drip however due to still being uncontrolled she was switched to amiodarone. She was seen in room ICU 5. She states that she came home from [place] over the weekend and initially had a sore throat therefore could not really talk much. Then she developed a sinus infection. She got home on Wednesday. Wednesday afternoon which was yesterday she could not breathe. She ended up waiting and today went to the hospital. She has a new oxygen requirement. On 3 L nasal cannula at this time saturating 99%. She does not have a known history of heart failure or atrial fibrillation. She states she has been coughing and bringing up phlegm. She will give us a sputum sample shortly. She had COVID in 2019. Denies a feeling of palpitations. She states her main complaint was trouble breathing. At [facility] troponin 103, D-dimer 0.89 WBC 14,000, neutrophils 88 ESR normal CRP 233, sodium 121 COVID-positive. CTA negative for PE. Patient denies chest pain. She was started on a heparin drip. Vital signs 129/81, saturating 99% on 4 L heart rate 120-145. Patient complained of shortness of breath. Hospital Course Hospital Course Patient was admitted to the hospital further evaluation and management of A-fib with RVR, Hyponatremia and was found to be having COVID-19. Cardiology and nephrology were consulted. She was started on amiodarone drip. Hyponatremia was thought to be in setting of mild dehydration for which she was started on IV fluids. She responded well to treatment and hyponatremia resolved. She was found to have mild COVID for which she did no require remdesivir and was treated only with dexamethasone. Her heart rate was difficult to control and eventually was loaded with digoxin. After loading with digoxin she had labile digoxin levels. Eventually her heart rate converted to normal sinus rhythm while being on amiodarone drip. She is been discharged in medically stable condition on oral amiodarone 400 mg twice daily for 1 week followed by 200 mg twice daily for 1 week followed by 200 mg daily along with Eliquis 2.5 mg twice daily which has been started for anticoagulation after detailed discussion with patient and her daughter along with increased dose of Cardizem to 360 mg oral daily. She is to follow with a primary care provider with a blood pressure diary in 2 weeks. Home health is being arranged for safe discharge planning. Physical Exam Narrative: General: Alert oriented x3, sitting up in chair. HEENT: Normocephalic, atraumatic, EOMI, Cardio: Irregularly irregular, tachycardic. Respiratory: Clear to auscultation bilaterally, no wheezes no rhonchi no crackles GI: Abdomen soft, nontender, nondistended, bowel sounds + Extremities: Bilateral lower extremity edema has resolved. Discharge Data Studies Completed and Pending Completed Studies During Hospitalization Category Date Time Status CT chest abdomen pelvis [[place] [id number] Cat Scan 03/14/25 18:55 Completed ] Stat XR chest 1V [id number] Stat Exams 03/13/25 17:50 Completed XR chest 1V portable [id number] Stat Exams 03/15/25 11:47 Completed Stool Culture - Enteric [Salmonella / Shigella / Campy] Lab 03/15/25 10:20 Completed Routine CV. echo complete* [id number] Stat Ultrasound 03/14/25 16:19 Completed Pending at discharge Category Date Time Status Comprehensive Metabolic Panel AM LABS Lab 03/22/25 04:00 Ordered Digoxin AM LABS Lab 03/22/25 04:00 Ordered MAG [Magnesium] AM LABS Lab 03/22/25 04:00 Ordered MAG [Magnesium] AM LABS Lab 03/23/25 04:00 Ordered Magnesium AM LABS Lab 03/22/25 04:00 Ordered OVA and Parasites, Conc and PE Routine Lab 03/18/25 16:02 Received Phosphorus AM LABS Lab 03/22/25 04:00 Ordered Vancomycin Random AM LABS Lab 03/22/25 04:00 Ordered Radiology Impressions Chest/Abdomen/Pelvis CT 03/14/25 18:55 IMPRESSION: 1. Multifocal bilateral airspace opacities. The pattern suggest pneumonitis. 2. Small pleural effusions with basilar atelectasis. IMPRESSION: 1. No acute abdominopelvic findings. 2. Hepatomegaly. 3. Other chronic findings as described Chest X-Ray 03/15/25 11:47 Impression: 1. No change in minimal right lower lobe opacity and probable left pleural reaction. 2. Atherosclerosis and hyperinflation. Laboratory Results WBC 20.62 10^3/uL (3.29-11.43) H 03/19/25 04:57 Corrected WBC Cancelled 03/16/25 10:17 RBC 4.03 10^6/uL (3.85-5.65) 03/19/25 04:57 Hgb 12.40 g/dL (11.27-16.99) 03/19/25 04:57 Hct 37.1 % (36-47) 03/19/25 04:57 MCV 92.1 fl (85-98) 03/19/25 04:57 MCH 30.8 pg (27-33) 03/19/25 04:57 MCHC 33.4 g/dL (30-55) 03/19/25 04:57 RDW 13.3 % (12.1-15.1) 03/19/25 04:57 Plt Count 320 10^3/cmm (157-399) 03/19/25 04:57 MPV 9.9 fL (7.4-10.4) 03/19/25 04:57 Gran % Cancelled 03/16/25 10:17 Neut % (Auto) 81.9 % 03/19/25 04:57 Lymph % (Auto) 5.2 % 03/19/25 04:57 [place] % (Auto) 4.7 % 03/19/25 04:57 Eos % (Auto) 0.0 % 03/19/25 04:57 Baso % (Auto) 0.3 % 03/19/25 04:57 Neut # (Auto) 16.88 10^3/uL (1.8-7.7) H 03/19/25 04:57 Lymph # (Auto) 1.1 10^3/uL (0.8-4.8) 03/19/25 04:57 [place] # (Auto) 1.0 10^3/uL (0.2-0.9) H 03/19/25 04:57 Eos # (Auto) 0.0 10^3/uL (0.0-0.8) 03/19/25 04:57 Baso # (Auto) 0.1 10^3/uL (0.0-0.1) 03/19/25 04:57 Absolute Gran (auto) Cancelled 03/16/25 10:17 Nucleated RBC % (auto) 0 % 03/19/25 04:57 Total Counted 100 (0-100) 03/18/25 04:30 Atypical Lymphs % 1.0 % (0-5) 03/18/25 04:30 Absolute Neutrophils 16.5 10^3/cmm (1.4-6.5) H 03/18/25 04:30 Segmented Neutrophils 88 % 03/18/25 04:30 Band Neutrophils 1.0 % 03/18/25 04:30 Absolute Lymphocytes 0.6 10^3/cmm (1.2-3.4) L 03/18/25 04:30 Lymphocytes (Manual) 2 % 03/18/25 04:30 Monocytes (Manual) 6.0 % 03/18/25 04:30 Absolute Monocytes 1.1 10^3/cmm (0.1-0.6) H 03/18/25 04:30 Eosinophils (Manual) 0 % 03/18/25 04:30 Absolute Eosinophils 0.0 10^3/cmm (0.0-0.7) 03/18/25 04:30 Basophils (Manual) 0.0 % 03/18/25 04:30 Absolute Basophils 0.0 10^3/cmm (0.0-0.2) 03/18/25 04:30 Metamyelocytes 0.0 % 03/18/25 04:30 Myelocytes 2.0 % 03/18/25 04:30 Nucleated RBCs # 0.0 /100WBC 03/19/25 04:57 Platelet Estimate Normal (Normal) 03/18/25 04:30 Peripher Smr Path Cons Sent for review 03/15/25 02:19 PT 14.00 SECONDS (12.1-14.9) 03/13/25 18:20 INR 1.01 (0.8-1.2) 03/13/25 18:20 APTT 46.5 SECONDS (23.9-36.7) H 03/16/25 10:17 Specimen Type Arterial 03/14/25 02:48 Sample Site Brachial, right 03/14/25 02:48 ABG pH 7.41 (7.35-7.45) 03/14/25 02:48 ABG pCO2 29.7 mmHg (35-45) L 03/14/25 02:48 ABG pO2 67.6 mmHg (80.0-100.0) L 03/14/25 02:48 ABG PO2/FiO2 Ratio 321 03/14/25 02:48 ABG HCO3 18.6 mmol/L (22-26) L 03/14/25 02:48 ABG O2 Saturation 94.5 03/14/25 02:48 ABG Base Excess -5.1 mmol/L (-2.0-2.0) L 03/14/25 02:48 Kushal Test N/a 03/14/25 02:48 A-a O2 Gradient 5.8 mmHg (5-10) 03/14/25 02:48 Hematocrit 37.5 % (37-47) 03/14/25 02:48 Hgb O2 Saturation 93.8 % (95-100) L 03/14/25 02:48 Carboxyhemoglobin 0.6 %THgb (0.4-20.1) 03/14/25 02:48 Methemoglobin 0.2 % (0.4-1.5) L 03/14/25 02:48 Total Hemoglobin 12.2 g/dL (12-16) 03/14/25 02:48 Sodium 123.0 mmol/L (131-143) L 03/14/25 02:48 Potassium 3.8 mmol/L (3.5-5.0) 03/14/25 02:48 Glucose 187.0 mg/dL (70-115) H 03/14/25 02:48 Ionized Calcium 1.0 mmol/L (1.1-1.4) L 03/14/25 02:48 O2 Delivery Device None 03/14/25 02:48 FiO2 21.0 % 03/14/25 02:48 Chairman And Chief Executive Officer ID Mehran 03/14/25 02:48 Sodium 134 mmol/L (136-145) L 03/21/25 03:59 Potassium 3.6 mmol/L (3.5-5.1) 03/21/25 03:59 Chloride 99 mmol/L (98-107) 03/21/25 03:59 Carbon Dioxide 24 mmol/L (22-29) 03/21/25 03:59 Anion Gap 14.6 (5-19) 03/21/25 03:59 BUN 23 mg/dL (8-23) 03/21/25 03:59 Creatinine 1.1 mg/dL (0.5-0.9) H 03/21/25 03:59 GFR Calculation Not Reportable 03/21/25 03:59 Glucose 147 mg/dL (65-115) H 03/21/25 03:59 Estimat Average Glucose 126 03/20/25 03:15 Hemoglobin A1c 6.0 % (4.0-6.0) 03/20/25 03:15 Serum Osmolality 275 mOsm/kg (278-305) L 03/13/25 19:37 Calculated Osmolality 284 mOsm/kg (285-295) L 03/21/25 03:59 Lactic Acid 4.0 mmol/L (0.5-2.2) H 03/14/25 21:29 Lactic Acid (Sepsis) 4.1 mmol/L (0.5-2.2) H* 03/15/25 00:22 Uric Acid 3.4 mg/dL (2.4-5.7) 03/13/25 21:20 Calcium 8.2 mg/dL (8.5-10.5) L 03/21/25 03:59 Phosphorus 3.0 mg/dL (2.5-4.5) 03/21/25 03:59 Magnesium 2.1 mg/dL (1.7-2.3) 03/21/25 03:59 Iron 49 ug/dL (37-145) 03/20/25 03:15 TIBC 224 mcg/dl 03/20/25 03:15 % Saturation 21.8 % (20-50) 03/20/25 03:15 Unsat Iron Binding 175 ug/dL (112-347) 03/20/25 03:15 Total Bilirubin 0.4 mg/dL (0.15-1.2) 03/21/25 03:59 AST 13 U/L (0-32) 03/21/25 03:59 ALT 33 U/L (0-33) 03/21/25 03:59 Alkaline Phosphatase 61 U/L (35-105) 03/21/25 03:59 Lactate Dehydrogenase 189 U/L (135-214) 03/13/25 16:33 Creatine Kinase 85 U/L (26-192) 03/13/25 16:33 Troponin T Baseline 78 ng/L (0-10) H 03/13/25 16:33 Troponin T 120 Minute 65.07 ng/L (0-10) H 03/13/25 18:20 Delta Troponin T -12.93 ABS# (0-10) L 03/13/25 18:20 Troponin T Hi Sens 6Hr 65.33 ng/L (0-10) H 03/13/25 22:53 Troponin T Hi Sens 6Hr Delta -12.67 ng/L (0-12) L 03/13/25 22:53 C-Reactive Protein 213.3 mg/L (0.0-4.9) H 03/13/25 16:33 NT-Pro-B Natriuret Pep 83796 pg/mL (0-450) H 03/13/25 16:33 Total Protein 5.6 g/dL (6.6-8.7) L 03/21/25 03:59 Albumin 3.1 g/dL (3.5-5.2) L 03/21/25 03:59 Globulin 2.5 g/dL (1.3-4.6) 03/21/25 03:59 Vitamin B12 1472 pg/mL (232-1245) H 03/20/25 03:15 Folate 9.5 ng/mL (4.8-37.3) 03/21/25 03:59 Procalcitonin 0.04 ng/mL (0-0.5) 03/20/25 03:15 TSH 1.34 uIU/mL (0.27-4.20) 03/13/25 21:20 Urine Color Yellow (Yellow) 03/14/25 18:45 Urine Appearance Clear (CLEAR) 03/14/25 18:45 Urine pH 5.5 (5-7) 03/14/25 18:45 Ur Specific Willard 1.022 (1.005-1.030) 03/14/25 18:45 Urine Protein 2+ (Negative) A 03/14/25 18:45 Urine Glucose (UA) Negative (Normal) 03/14/25 18:45 Urine Ketones Negative (Negative) 03/14/25 18:45 Urine Blood Negative (Negative) 03/14/25 18:45 Urine Nitrate Negative (Negative) 03/14/25 18:45 Urine Bilirubin Negative (Negative) 03/14/25 18:45 Urine Urobilinogen 0.2 mg/dL (Negative) 03/14/25 18:45 Ur Leukocyte Esterase Negative (Negative) 03/14/25 18:45 Urine RBC 0-2 /hpf (0-2) 03/14/25 18:45 Urine WBC 0-5 /hpf (0-5) 03/14/25 18:45 Ur Squamous Epith Cells 0-5 /hpf (0-5) 03/14/25 18:45 Amorphous Sediment Not Reportable 03/14/25 18:45 Urine Bacteria None seen /hpf (NONE) 03/14/25 18:45 Hyaline Casts 3.71 /lpf 03/14/25 18:45 Urine Osmolality 429 mOsm/kg (50-1200) 03/14/25 18:45 Ur Random Sodium < 10 mmol/L 03/14/25 18:45 Ur Random Chloride < 10 mmol/L 03/14/25 18:45 Nasal MRSA (PCR) Not detected (Not Detecte) 03/20/25 10:30 Vancomycin Trough 20.5 ug/mL (10-15) H 03/19/25 04:57 Random Vancomycin 16.8 ug/mL (20.0-40.0) L 03/21/25 03:59 Digoxin 1.2 ng/mL (0.6-1.2) 03/21/25 03:59 Adenovirus (PCR) Not detected (NOT DETECT) 03/13/25 16:50 C. pneumoniae DNA (PCR) Not detected (NOT DETECT) 03/13/25 16:50 C. difficile (PCR) Negative (Negative) 03/16/25 13:51 Coronavirus 229E (PCR) Not detected (NOT DETECT) 03/13/25 16:50 Human Metapneumovir PCR Not detected (NOT DETECT) 03/13/25 16:50 Influenza A (H1) PCR Not detected (NOT DETECT) 03/13/25 16:50 Influ A (H1/09) PCR Not detected (NOT DETECT) 03/13/25 16:50 Influenza A (H3) PCR Not detected (NOT DETECT) 03/13/25 16:50 Influenza Type A (PCR) Not detected (NOT DETECT) 03/13/25 16:50 Influenza Type B (PCR) Not detected (NOT DETECT) 03/13/25 16:50 M. pneumoniae (PCR) Not detected (NOT DETECT) 03/13/25 16:50 Parainfluenza 1 (PCR) Not detected (NOT DETECT) 03/13/25 16:50 Parainfluenza 2 (PCR) Not detected (NOT DETECT) 03/13/25 16:50 Parainfluenza 3 (PCR) Not detected (NOT DETECT) 03/13/25 16:50 Parainfluenza 4 (PCR) Not detected (NOT DETECT) 03/13/25 16:50 RSV Type A (PCR) Not detected (NOT DETECT) 03/13/25 16:50 RSV Type B (PCR) Not detected (NOT DETECT) 03/13/25 16:50 Entero/Rhino (PCR) Detected (NOT DETECT) A 03/13/25 16:50 SARS-CoV-2 (PCR) Detected (NOT DETECT) A 03/13/25 16:50 Vitals Last Vital Signs Temp 98.8 F 03/21/25 08:00 Pulse 85 03/21/25 08:00 Resp 24 H 03/21/25 08:00 BP 145/68 03/21/25 08:00 Pulse Ox 93 03/21/25 08:00 O2 Del Method Room Air 03/21/25 08:00 O2 Flow Rate 2 03/20/25 16:00 Discharge Plan Discharge Patient Disposition: Home Health Service Condition: Stable Prescriptions: New amiodarone [Pacerone] 200 mg Tablet 400 mg PO BID Qty: 90 0RF Rx Instructions: 400 mg bid for 1 week, f/b 200 mg bid for 1 week, f/b 200 mg daily Eliquis 5 mg Tablet 2.5 mg PO BID@0900,2100 30 Days Qty: 30 0RF pantoprazole 40 mg Tablet,Delayed Release (Dr/Ec) 40 mg PO DAILY 30 Days Qty: 30 0RF diltiazem HCl [Cardizem CD] 360 mg capsule,extended release 24hr 360 mg PO Q24H Qty: 30 0RF Continued acetaminophen [Tylenol] 325 mg tablet 325 mg PO QID PRN (Reason: Pain) gabapentin 300 mg capsule 300 mg PO DAILY alendronate 70 mg tablet 70 mg PO Q7D levothyroxine 75 mcg tablet 75 mcg PO QAM alprazolam 0.25 mg tablet 0.25 mg PO DAILY PRN (Reason: Anxiety) ketoconazole 2 % cream See Rx Instructions .ROUTE .COMPLEX Rx Instructions: APPLY TWICE DAILY TO BOTH FEET AND IN BETWEEN TOES FOR 6 WEEKS THEN NEEDED FOR FLARES. Discontinued atenolol 50 mg tablet 50 mg PO DAILY amlodipine 5 mg tablet 5 mg PO DAILY lisinopril 20 mg tablet 20 mg PO BID Discharge Order = DC NOW: Discharge Order (Routine); Ordered 03/21/25 Ordered By: Ramu Fowler Other Ambulatory Orders: DME: Wesley (Order) Location: None Selected Ordered By: Amy Anderson Referrals: [facility] [Outside] Narcisa Angulo NP [Nurse Practitioner, Cardiology] - 2 weeks Riya Funk MD [Primary Care Provider, Family Practice] - 04/02/25 9:20 am Referral Note: Please arrive @ 9:00a.m. for this apoointment, thank you! Discharge Diet: Cardiac Discharge Activity: Resume usual activity and Increase activity as tolerated Patient Instructions: Diarrhea - Adult, Diltiazem (By mouth) (Cardizem, Cardizem CD, Cardizem LA, Cardizem SR), Amiodarone (By mouth) (Cordarone, Pacerone), Pantoprazole (By mouth) (Protonix), Apixaban (By mouth) (Eliquis), A-fib (Atrial Fibrillation) (DC), COVID-19 and Chronic Health Conditions (DC), How to Recover from COVID-19 at Home (GEN), Opioid Safety, Patient Portal & Ines Instructions Activity Restrictions/Additional Instructions: Take amiodarone 400 mg twice daily for 1 week followed by 200 mg twice daily for 1 week followed by 200 mg daily. Dose of Cardizem has been changed to 360 mg daily. Summer is a blood thinner which she should be taking going forward 2.5 mg morning and evening. Please do not take your home dose of amlodipine, atenolol and lisinopril. Please check your blood pressure daily at home maintain a blood pressure diary. Follow-up with a primary care provider within next 2 weeks for further adjustment of antihypertensive as needed. Goal blood pressure is between 100 -140 systolics. Discharge Attestations Time Spent in Discharge Care*: greater than 30 min Specific Discharge Activities: educating patient, educating and/or supporting family/caregiver, discussing with pcp/other providers, discussing with case resource manager/social workers/dc planners, documenting/other paperwork and evaluating patient/reviewing data Status at Discharge: Cognitive status at discharge: cognitively intact, Behavioral status at discharge: cooperative, Functional status at discharge: uses cane/walker, Overall status at discharge: patient is back to baseline Quality Metrics Clinical Quality Measures [ No reported AMI, CVA or VTE this stay] Coding Level of Care Code 00777 Total time (in minutes) for Discharge: 65 Diagnoses Atrial fibrillation I48.91 COVID U07.1 Supplemental oxygen dependent Z99.81 Cough R05.9 Hyponatremia E87.1 High anion gap E87.8 Elevated liver enzymes R74.8 Leukocytosis D72.829 Elevated troponin R79.89 Lactic acidosis E87.20
[2025-03-21 11:10] VITALS: BP 141/64; PULSE 65; O2SAT 96
--- NOTE | 2025-03-21 11:29 | PC.NURSE ---
Discharge Note Patient discharged to home with home health via private vehicle accompanied by daughter. Discharge instructions reviewed with patient and/or termite control representative. Mobile pharmacy medications and/or prescriptions provided. Belongings/home medications returned.
== END 2025-03-21 11:14 | disposition home health service (06) | DRG 177 ==
LOC: ICU 03-18 03:35 → CSU 03-18 10:31
PROVIDERS: Hospitalist; Internal Medicine; Internal Medicine Nephrology; Nurse Practitioner Family; Admitting Provider Internal Medicine; PCP Family Medicine; Visit Provider Student in an Organized Health Care Education/Training Program
DX: U07.1 COVID-19 (principal); J12.82 Pneumonia due to coronavirus disease 2019; J96.00 Acute respiratory failure, unspecified whether with hypoxia or hypercapnia; E87.1 Hypo-osmolality and hyponatremia; E87.20 Acidosis, unspecified; B34.8 Other viral infections of unspecified site; E86.0 Dehydration; E87.5 Hyperkalemia; I48.91 Unspecified atrial fibrillation; I10 Essential (primary) hypertension; R74.8 Abnormal levels of other serum enzymes; E87.6 Hypokalemia; E03.9 Hypothyroidism, unspecified; R19.7 Diarrhea, unspecified; M81.0 Age-related osteoporosis without current pathological fracture; R79.89 Other specified abnormal findings of blood chemistry; E78.5 Hyperlipidemia, unspecified; Z99.81 Dependence on supplemental oxygen; Z85.3 Personal history of malignant neoplasm of breast; Z85.828 Personal history of other malignant neoplasm of skin; Z79.890 Hormone replacement therapy; Z79.899 Other long term (current) drug therapy; Z88.5 Allergy status to narcotic agent; Z90.12 Acquired absence of left breast and nipple
CPT/HCPCS: 36415; 36600; 71045; 71250; 74176; 80048; 80051; 80053; 80162; 80202; 80503; 81001; 82330; 82436; 82550; 82607; 82746; 82805; 83036; 83540; 83550; 83605; 83615; 83630; 83735; 83880; 83930; 83935; 84100; 84145; 84300; 84443; 84484; 84550; 85007; 85025; 85049; 85610; 85730; 86140; 86403; 87040; 87045; 87070; 87086; 87177; 87205; 87209; 87427; 87449; 87486; 87493; 87581; 87633; 88184; 88185; 93005; 93306; 94640; 94664; 97116; 97161; A4222; J0248; J0283; J0360; J0456; J1100; J1160; J1644; J1938; J2405; J2543; J2919; J3373; J3475; J3490; J7030; J7050; J9999; Q3014

== ENCOUNTER → 2025-04-05 15:48 | Outpatient (BNVA) | payer MEDICARE, OTHER, SELFPAY | PROVIDERS: PCP Family Medicine; Visit Provider Nurse Practitioner Family | DX: I48.91 Unspecified atrial fibrillation (principal); Z79.01 Long term (current) use of anticoagulants; R79.89 Other specified abnormal findings of blood chemistry; R58 Hemorrhage, not elsewhere classified | CPT/HCPCS: 93005; 99213 ==

== ENCOUNTER → 2025-07-03 13:01 | Outpatient (BNVA) | payer MEDICARE, OTHER, SELFPAY | PROVIDERS: PCP Family Medicine; Visit Provider Internal Medicine | DX: I48.91 Unspecified atrial fibrillation (principal); I10 Essential (primary) hypertension | CPT/HCPCS: 99214 ==